=== PATIENT | male | born 1975 | race African-American/Black ===

== ENCOUNTER → 2016-07-30 | Day surgery (SDC) | payer MEDICAID ==
[2016-07-27 13:14] LABS: Basophils # (auto) 0.1 uL; Basophils % (auto) 1.6 % (0.0-2.0); Eosinophils # (auto) 0.3 uL; Eosinophils % (auto) 3.6 % (0.0-7.0); Hematocrit 39.2 % (41.0-53.0); Hemoglobin 12.8 g/dL (13.5-17.5); Lymphocytes # (auto) 2.3 uL; Lymphocytes % (auto) 29.4 % (10.0-50.0); Mean Corpuscular Hemoglobin 29.3 pg (28.0-32.0); Mean Corpuscular Hgb Conc. 32.6 g/dL (32.0-36.0); Mean Corpuscular Volume 90.1 fL (80.0-100.0); Monocytes # (auto) 0.9 uL; Monocytes % (auto) 10.9 % (0.0-12.0); Neutrophils # (auto) 4.3 uL; Neutrophils % (auto) 54.5 % (37.0-80.0); Platelet Count (auto) 497 10^3/uL (140-450); Red Cell Distribution Width 13.9 % (11.6-16.0); White Blood Cell 7.9 10^3/uL (4.4-10.8)
[2016-07-27 13:26] LABS: Urine Bilirubin Negative (Negative); Urine Blood Negative /uL (Negative); Urine Color Yellow (Yellow); Urine Glucose Normal (Normal); Urine Ketone Negative (Negative); Urine Mucus FEW (None Seen); Urine Nitrite Negative (Negative); Urine RBC 6 /hpf (0 - 3); Urine Urobilinogen Normal (Negative); Urine pH 6.5 (5.0-8.0)
[2016-07-27 13:31] LABS: Partial Thromboplastin Time 27.1 sec (22.64-33.71); Prothrombin Time 10.3 sec (9.37-12.3)
[2016-07-27 13:33] LABS: BUN/Creatinine Ratio 10.6; Calcium 8.8 mg/dL (8.5-10.1); Potassium 3.8 mmol/L (3.5-5.1)
[~2016-07-30] VITALS: Ht 172.7 cm; Wt 129.3 kg
[~2016-07-30] MED LIST: ALPR2TAB2 PO; AMLO10TA2 PO; BEN10T PO; DEXAMETHASONE SOD PHOS 10MG/1ML VIAL INJ ONE; FURO40TA PO; HYDR25TA4 PO; IOHEXOL 300 MG/ML 100ML BOTTLE IJ ONE; KETOROLAC TROMETH 60MG/2ML VIAL IM ONE; ONDANSETRON HCL 4 MG/2 ML VIAL ONE; PANT40TA2 PO; ROCURONIUM 10MG/ML 10ML VIAL IV ONE; SIMV-8 PO; SUCR1TAB38 PO; ceFAZolin 1GM/50ML D5W 50 ML IV ONE; fentaNYL CITRATE 100 MCG/2 ML VL ONE
[2016-07-30 07:32] VITALS: BP 159/115
== END | disposition home or self-care (01) ==
LOC: SUR 07:10
PROVIDERS: ATTEND Urology
DX: N20.1 Calculus of ureter (principal); I50.9 Heart failure, unspecified; J44.9 Chronic obstructive pulmonary disease, unspecified; E66.9 Obesity, unspecified; F41.9 Anxiety disorder, unspecified; F17.200 Nicotine dependence, unspecified, uncomplicated
CPT/HCPCS: 36415; 80048; 81001; 85025; 85049; 85610; 85730; 87086; J0690; J1100; J1885; J2405

== ENCOUNTER 2017-04-04 13:24 | Inpatient (IN) | payer MEDICAID, OTHER ==
[~2017-04-04] VITALS: Ht 172.7 cm; Wt 137.9 kg
[~2017-04-04 13:24] MED LIST changes: -DEXAMETHASONE SOD PHOS 10MG/1ML VIAL INJ ONE; -IOHEXOL 300 MG/ML 100ML BOTTLE IJ ONE; -KETOROLAC TROMETH 60MG/2ML VIAL IM ONE; -ONDANSETRON HCL 4 MG/2 ML VIAL ONE; -ROCURONIUM 10MG/ML 10ML VIAL IV ONE; -ceFAZolin 1GM/50ML D5W 50 ML IV ONE; -fentaNYL CITRATE 100 MCG/2 ML VL ONE
[2017-04-04] MEDS ORDERED: ASPirin 81 mg TAB PO ONE (14:00)
[2017-04-04] MEDS ORDERED: HYDROmorphone HCL 2 MG/ML VL IV ONE (14:15)
[2017-04-04] MEDS ORDERED: ONDANSETRON HCL 4 MG/2 ML VIAL IV ONE (14:15)
[2017-04-04 14:39] LABS: Basophils # (auto) 0.1 uL; Basophils % (auto) 0.8 % (0.0-2.0); Eosinophils # (auto) 0.2 uL; Eosinophils % (auto) 2.2 % (0.0-7.0); Hematocrit 43.2 % (41.0-53.0); Hemoglobin 14.3 g/dL (13.5-17.5); Lymphocytes # (auto) 3.1 uL; Lymphocytes % (auto) 40.3 % (10.0-50.0); Mean Corpuscular Hemoglobin 29.6 pg (28.0-32.0); Mean Corpuscular Hgb Conc. 33.1 g/dL (32.0-36.0); Mean Corpuscular Volume 89.5 fL (80.0-100.0); Mean Platelet Volume 8.1 fL (6.9-10.8); Monocytes # (auto) 0.9 uL; Monocytes % (auto) 11.6 % (0.0-12.0); Neutrophils # (auto) 3.5 uL; Neutrophils % (auto) 45.1 % (37.0-80.0); Nucleated Red Blood Cells % 0.2 %; Platelet Count (auto) 394 10^3/uL (140-450); Red Cell Distribution Width 14.5 % (11.8-14.3); White Blood Cell 7.8 10^3/uL (4.4-10.8)
[2017-04-04 14:48] LABS: Urine Bilirubin Negative (Negative); Urine Blood Negative /uL (Negative); Urine Color Yellow (Yellow); Urine Glucose Normal (Normal); Urine Ketone Negative (Negative); Urine Nitrite Negative (Negative); Urine RBC <1 /hpf (0 - 3); Urine Squamous Epithelial Cell FEW /hpf (<5); Urine Urobilinogen Normal (Negative)
[2017-04-04 14:52] LABS: INR 0.92 (0.9-1.15)
[2017-04-04 15:05] LABS: Albumin 3.1 g/dL (3.4-5.0); Anion Gap 7 (5-15); Aspartate Aminotransferase 23 U/L (15-37); Blood Urea Nitrogen 14 mg/dL (7-18); Calcium 8.6 mg/dL (8.5-10.1); Carbon Dioxide 27 mmol/L (21-32); Chloride 111 mmol/L (98-107); GFR African American 106 mL/min; GFR Non-African American 88 mL/min; Glucose 103 mg/dL (74-106); Magnesium 2.4 mg/dL (1.6-2.6); Potassium 4.2 mmol/L (3.5-5.1); Sodium 145 mmol/L (136-145)
[2017-04-04 15:09] LABS: Alkaline Phosphatase 70 U/L (45-117); Bilirubin, Total 0.3 mg/dL (0.2-1.0); Total Protein 7.1 g/dL (6.4-8.2)
[2017-04-04 15:15] LABS: B-Type Natriuretic Peptide 44.58 pg/mL (0-100)
[2017-04-04 15:28] LABS: Temperature: 22.4 C (20.0-25.0)
[2017-04-04] MEDS ORDERED: ONDANSETRON HCL 4 MG/2 ML VIAL IV PRN (18:15)
[2017-04-04] MEDS ORDERED: FUROSEMIDE 40 MG/4 ML VIAL IV ONE (18:15)
[2017-04-04] MEDS ORDERED: cefTRIAXone 1GM/50ML D5W 50 ML IV ONE (18:15)
[2017-04-04] MEDS ORDERED: ZOLPIDEM TARTRATE 5 MG TAB PO PRN (18:15)
[2017-04-04] MEDS ORDERED: NITROGLYCERIN 0.4 MG SL TAB SL PRN ×2 (18:15)
[2017-04-04] MEDS ORDERED: LORazepam 0.5 MG TAB PO PRN (18:15)
[2017-04-04] MEDS ORDERED: ALUM & MAG HYDROX-SIMETH LIQ(MAALOX) 30 ML PO ONE (18:15)
[2017-04-04] MEDS ORDERED: cloNIDine HCL 0.1 MG TAB PO PRN (18:15)
[2017-04-04] MEDS ORDERED: ACETAMINOPHEN 325 MG TAB PO PRN (18:15)
[2017-04-04] MEDS: HYDROmorphone HCL 2 MG/ML VL IV PRN ×2 (18:20→23:18)
[2017-04-04] MEDS ORDERED: AZITHROMYCIN 500MG/D5W 250ML 250 ML IV ONE (19:00)
[2017-04-04 19:58] VITALS: BP_SYST 138; BP_SYST 159; BP_DIAS 88; BP_DIAS 90
[2017-04-04] MEDS: oxyCODONE ER 10 MG TAB PO SCH (22:13)
[2017-04-04] MEDS: SUCRALFATE 1 GM TAB PO SCH (22:14)
[2017-04-04] MEDS: ATORVASTATIN 20 MG TAB PO SCH (22:14)
[2017-04-04] MEDS: BENAZEPRIL HCL 10 MG TAB PO SCH (22:15)
[2017-04-04] MEDS: CARVEDILOL 3.125 MG TAB PO SCH (22:15)
[2017-04-04] MEDS: POTASSIUM CHL 10 Meq TABLET PO SCH (22:16)
[2017-04-04] MEDS: SODIUM CHLOR 0.9% PF (SALINE LOCK) 10ML VIAL IV SCH (22:16)
[2017-04-05] MEDS: ALBUTEROL SULF 2.5 MG/0.5ML(0.5%) NEB SOLN NEB SCH ×5 (02:20→23:49)
[2017-04-05 05:00] VITALS: BP 132/66
[2017-04-05] MEDS: FUROSEMIDE 40 MG/4 ML VIAL IV SCH ×2 (05:40→18:42)
[2017-04-05] MEDS: oxyCODONE ER 10 MG TAB PO SCH ×3 (05:40→21:15)
[2017-04-05] MEDS: SODIUM CHLOR 0.9% PF (SALINE LOCK) 10ML VIAL IV SCH ×3 (05:42→21:14)
[2017-04-05 06:39] LABS: Basophils # (auto) 0.1 uL; Basophils % (auto) 0.7 % (0.0-2.0); Eosinophils # (auto) 0.3 uL; Eosinophils % (auto) 3.8 % (0.0-7.0); Hematocrit 43.1 % (41.0-53.0); Hemoglobin 14.2 g/dL (13.5-17.5); Lymphocytes % (auto) 35.4 % (10.0-50.0); Mean Corpuscular Hemoglobin 29.7 pg (28.0-32.0); Mean Corpuscular Volume 89.9 fL (80.0-100.0); Mean Platelet Volume 8.6 fL (6.9-10.8); Monocytes # (auto) 0.8 uL; Neutrophils # (auto) 4.2 uL; Neutrophils % (auto) 50.1 % (37.0-80.0); Platelet Count (auto) 360 10^3/uL (140-450); Red Cell Distribution Width 14.6 % (11.8-14.3); White Blood Cell 8.4 10^3/uL (4.4-10.8)
[2017-04-05 07:04] LABS: BUN/Creatinine Ratio 14.9; Bilirubin, Total 0.4 mg/dL (0.2-1.0); Calcium 8.3 mg/dL (8.5-10.1); Magnesium 2.4 mg/dL (1.6-2.6); Potassium 3.9 mmol/L (3.5-5.1); Total Protein 7.3 g/dL (6.4-8.2)
[2017-04-05 08:37] VITALS: BP 138/90
[2017-04-05 08:46] VITALS: BP 132/82
[2017-04-05] MEDS: cefTRIAXone 1GM/50ML D5W 50 ML IV SCH (09:03)
[2017-04-05] MEDS: HYDROmorphone HCL 2 MG/ML VL IV PRN ×4 (09:03→23:30)
[2017-04-05] MEDS: SUCRALFATE 1 GM TAB PO SCH ×4 (09:03→21:14)
[2017-04-05] MEDS: BOOST PLUS 8 ounce PO SCH ×3 (09:04→18:10)
[2017-04-05] MEDS: AZITHROMYCIN 500MG/D5W 250ML 250 ML IV SCH (09:23)
[2017-04-05] MEDS: POTASSIUM CHL 10 Meq TABLET PO SCH ×2 (09:23→21:14)
[2017-04-05] MEDS: PANTOPRAZOLE 40 MG TAB PO SCH (09:24)
[2017-04-05] MEDS: CLOPIDOGREL BISULFATE 75 MG TAB PO SCH (09:24)
[2017-04-05] MEDS: HCTZ 25 MG TAB PO SCH (09:24)
[2017-04-05] MEDS: amLODIPine BESYLATE 5 MG TAB PO SCH (09:25)
[2017-04-05] MEDS: CARVEDILOL 3.125 MG TAB PO SCH ×2 (09:26→21:55)
[2017-04-05] MEDS: BENAZEPRIL HCL 10 MG TAB PO SCH ×2 (09:26→21:56)
[2017-04-05] MEDS: DOCUSATE SOD 100 MG CAP PO SCH (09:29)
[2017-04-05] MEDS: ASPirin 81 mg TAB PO SCH (09:29)
[2017-04-05 13:25] VITALS: BP 128/82
[2017-04-05 17:00] VITALS: BP 144/84
[2017-04-05] MEDS: ATORVASTATIN 20 MG TAB PO SCH (21:14)
[2017-04-06] MEDS: HYDROmorphone HCL 2 MG/ML VL IV PRN ×2 (03:30→09:25)
[2017-04-06 05:00] VITALS: BP 131/93
[2017-04-06] MEDS: FUROSEMIDE 40 MG/4 ML VIAL IV SCH (05:35)
[2017-04-06] MEDS: oxyCODONE ER 10 MG TAB PO SCH ×2 (05:36→14:00)
[2017-04-06] MEDS: SODIUM CHLOR 0.9% PF (SALINE LOCK) 10ML VIAL IV SCH (05:37)
[2017-04-06] MEDS: ALBUTEROL SULF 2.5 MG/0.5ML(0.5%) NEB SOLN NEB SCH ×2 (06:17→11:32)
[2017-04-06] MEDS: SUCRALFATE 1 GM TAB PO SCH ×2 (06:27→12:25)
[2017-04-06 09:00] VITALS: BP 138/71
[2017-04-06] MEDS: cefTRIAXone 1GM/50ML D5W 50 ML IV SCH (09:45)
[2017-04-06] MEDS: DOCUSATE SOD 100 MG CAP PO SCH (09:45)
[2017-04-06] MEDS: ASPirin 81 mg TAB PO SCH (09:45)
[2017-04-06] MEDS: CARVEDILOL 3.125 MG TAB PO SCH (09:46)
[2017-04-06] MEDS: HCTZ 25 MG TAB PO SCH (09:46)
[2017-04-06] MEDS: BENAZEPRIL HCL 10 MG TAB PO SCH (09:47)
[2017-04-06] MEDS: POTASSIUM CHL 10 Meq TABLET PO SCH (09:47)
[2017-04-06] MEDS: CLOPIDOGREL BISULFATE 75 MG TAB PO SCH (09:47)
[2017-04-06] MEDS: PANTOPRAZOLE 40 MG TAB PO SCH (09:47)
[2017-04-06] MEDS: amLODIPine BESYLATE 5 MG TAB PO SCH (09:47)
[2017-04-06] MEDS ORDERED: GEMFIBROZIL 600 MG TAB PO SCH (10:15)
[2017-04-06 11:40] LABS: Allen Test Yes; Base Excess 3.6 mmol/L (-2.0-2.0); Blood 02Sat 95.1 % (96-100); Blood COHb 0.6 % (0.5-1.5); Blood MetHb 0.3 % (0.0-1.5); HCO3 28.7 mmol/L (22-26.0); HHb 4.9 % (0.0-5.0); MODE ROOM AIR; O2Hb 94.2 % (94.0-97.0); PCO2 44.9 mmHg (35.0-45.0); PCO2(T) 44.9 mmHg (35.0-45.0); PO2 77.9 mmHg (80.0-100.0); PO2(T) 77.9 mmHg (80.0-100.0); Room 0238T; Sample Type Arterial; pH 7.424 (7.350-7.450)
[2017-04-06] MEDS: AZITHROMYCIN 500MG/D5W 250ML 250 ML IV SCH (12:25)
[2017-04-06 13:00] VITALS: BP 97/69
[2017-04-06 13:56] VITALS: BP 138/71
== END 2017-04-06 14:35 | disposition home or self-care (01) | DRG 194 ==
LOC: ER 13:25 → TELE 13:26 → TELE-EAST 19:56 → TELE 19:56 → TELE-EAST 19:58
PROVIDERS: ADMIT Internal Medicine; ATTEND Internal Medicine
DX: I11.0 Hypertensive heart disease with heart failure (principal); E44.0 Moderate protein-calorie malnutrition; E66.2 Morbid (severe) obesity with alveolar hypoventilation; Z68.42 Body mass index [BMI] 45.0-49.9, adult; F41.9 Anxiety disorder, unspecified; E78.1 Pure hyperglyceridemia; F17.210 Nicotine dependence, cigarettes, uncomplicated; I50.43 Acute on chronic combined systolic (congestive) and diastolic (congestive) heart failure; J20.9 Acute bronchitis, unspecified; J45.909 Unspecified asthma, uncomplicated; K21.9 Gastro-esophageal reflux disease without esophagitis; Z87.442 Personal history of urinary calculi; Z90.49 Acquired absence of other specified parts of digestive tract; Z82.3 Family history of stroke; Z82.49 Family history of ischemic heart disease and other diseases of the circulatory system; Z90.5 Acquired absence of kidney; Z88.1 Allergy status to other antibiotic agents; Z88.5 Allergy status to narcotic agent; Z88.8 Allergy status to other drugs, medicaments and biological substances
CPT/HCPCS: 36415; 36600; 71010; 80053; 80061; 81001; 82805; 83735; 83880; 84443; 84484; 85025; 85610; 85730; 87040; 87070; 87081; 87205; 93005; 93306; 94640; 96365; 96375; J0696; J2405

== ENCOUNTER 2017-06-25 05:18 | Emergency (ER) | payer MEDICAID ==
[~2017-06-25] VITALS: Ht 172.7 cm; Wt 113.4 kg
[~2017-06-25 05:18] MED LIST changes: -HYDR25TA4 PO
[2017-06-25 07:01] LABS: Basophils # (auto) 0.1 uL; Basophils % (auto) 1.3 % (0.0-2.0); Eosinophils # (auto) 0.3 uL; Eosinophils % (auto) 4.2 % (0.0-7.0); Hemoglobin 15.1 g/dL (13.5-17.5); Lymphocytes # (auto) 2.6 uL; Lymphocytes % (auto) 32.8 % (10.0-50.0); Mean Corpuscular Hemoglobin 28.4 pg (28.0-32.0); Mean Corpuscular Hgb Conc. 32.9 g/dL (32.0-36.0); Mean Corpuscular Volume 86.5 fL (80.0-100.0); Mean Platelet Volume 7.6 fL (6.9-10.8); Monocytes # (auto) 0.6 uL; Monocytes % (auto) 8.2 % (0.0-12.0); Neutrophils # (auto) 4.2 uL; Neutrophils % (auto) 53.5 % (37.0-80.0); Nucleated Red Blood Cells % 0.1 %; Platelet Count (auto) 375 10^3/uL (140-450); Red Cell Distribution Width 15.7 % (11.8-14.3); White Blood Cell 7.8 10^3/uL (4.4-10.8)
[2017-06-25] MEDS ORDERED: methylPREDNISolone SOD SUCC 125 MG/2 ML VL IV ONE (07:15)
[2017-06-25 07:19] LABS: INR 0.94 (0.9-1.15); Partial Thromboplastin Time 26.1 sec (22.64-33.71); Prothrombin Time 10.2 sec (9.37-12.3)
[2017-06-25 07:26] VITALS: BP 143/82
[2017-06-25 07:29] LABS: BUN/Creatinine Ratio 11.2; Bilirubin, Total 0.4 mg/dL (0.2-1.0); Calcium 8.3 mg/dL (8.5-10.1); Total Protein 7.5 g/dL (6.4-8.2)
[2017-06-25] MEDS ORDERED: HYDROmorphone HCL 2 MG/ML VL IV ONE (07:30)
[2017-06-25] MEDS ORDERED: ONDANSETRON HCL 4 MG/2 ML VIAL IV ONE (07:30)
[2017-06-25 07:32] LABS: Temperature: 21.5 C (20.0-25.0)
== END 2017-06-25 08:26 | disposition left against medical advice (07) ==
LOC: ER 05:18 → EDBD 05:18 → ER 08:21
DX: R06.03 Acute respiratory distress (principal); J44.1 Chronic obstructive pulmonary disease with (acute) exacerbation; R00.0 Tachycardia, unspecified; F17.210 Nicotine dependence, cigarettes, uncomplicated; I11.0 Hypertensive heart disease with heart failure; I50.9 Heart failure, unspecified; K21.9 Gastro-esophageal reflux disease without esophagitis; E78.5 Hyperlipidemia, unspecified; Z87.442 Personal history of urinary calculi; I25.2 Old myocardial infarction; Z90.49 Acquired absence of other specified parts of digestive tract
CPT/HCPCS: 36415; 71010; 80053; 83735; 83880; 84484; 85025; 85610; 85730; 93005; 94761; 96374; 96375; 99285; J1170; J2405; J2930

== ENCOUNTER 2017-06-26 22:43 | Emergency (ER) | payer MEDICAID ==
[~2017-06-26] VITALS: Ht 180.3 cm; Wt 117.9 kg
[2017-06-27 01:27] LABS: Basophils # (auto) 0.2 uL; Basophils % (auto) 1.5 % (0.0-2.0); Eosinophils # (auto) 0.2 uL; Eosinophils % (auto) 1.2 % (0.0-7.0); Hematocrit 42.7 % (41.0-53.0); Hemoglobin 13.8 g/dL (13.5-17.5); Lymphocytes % (auto) 22.9 % (10.0-50.0); Mean Corpuscular Hemoglobin 28.3 pg (28.0-32.0); Mean Corpuscular Hgb Conc. 32.3 g/dL (32.0-36.0); Mean Corpuscular Volume 87.6 fL (80.0-100.0); Mean Platelet Volume 7.8 fL (6.9-10.8); Monocytes # (auto) 1.1 uL; Monocytes % (auto) 8.3 % (0.0-12.0); Neutrophils # (auto) 8.8 uL; Neutrophils % (auto) 66.1 % (37.0-80.0); Nucleated Red Blood Cells % 0.1 %; Platelet Count (auto) 377 10^3/uL (140-450); Red Cell Distribution Width 15.7 % (11.8-14.3); White Blood Cell 13.2 10^3/uL (4.4-10.8)
[2017-06-27 01:54] LABS: Albumin 2.7 g/dL (3.4-5.0); Calcium 8.3 mg/dL (8.5-10.1); Magnesium 2.1 mg/dL (1.6-2.6); Potassium 3.6 mmol/L (3.5-5.1)
[2017-06-27 01:59] LABS: Bilirubin, Total 0.3 mg/dL (0.2-1.0); Total Protein 7.1 g/dL (6.4-8.2)
[2017-06-27 02:12] LABS: B-Type Natriuretic Peptide 224.28 pg/mL (0-100)
[2017-06-27 02:44] LABS: Temperature: 21.9 C (20.0-25.0)
[2017-06-27] MEDS: HYDROcodone-ACET 10/325MG TAB PO ONE (03:46)
[2017-06-27 03:56] VITALS: BP 132/78
== END 2017-06-27 04:01 | disposition home or self-care (01) ==
LOC: EDBD 22:43 → ER 22:45
DX: R06.02 Shortness of breath (principal); I50.9 Heart failure, unspecified; K21.9 Gastro-esophageal reflux disease without esophagitis; E78.5 Hyperlipidemia, unspecified; J44.9 Chronic obstructive pulmonary disease, unspecified; I25.2 Old myocardial infarction; Z90.49 Acquired absence of other specified parts of digestive tract; Z87.891 Personal history of nicotine dependence; Z87.442 Personal history of urinary calculi
CPT/HCPCS: 36415; 71010; 80053; 83735; 83880; 84484; 85025

== ENCOUNTER 2017-11-11 15:45 | Inpatient (IN) | payer MEDICAID ==
[~2017-11-11] VITALS: Ht 172.7 cm; Wt 115.9 kg
[2017-11-11] MEDS ORDERED: METOCLOPRAMIDE HCL 5MG/ml INJ 2ml VIAL IV ONE (16:30)
[2017-11-11] MEDS ORDERED: HYDROmorphone HCL 2 MG/ML VL IV ONE (16:30)
[2017-11-11 16:48] LABS: Basophils # (auto) 0.1 uL; Eosinophils # (auto) 0 uL; Hematocrit 46.8 % (41.0-53.0); Monocytes % (auto) 10.5 % (0.0-12.0); White Blood Cell 9.5 10^3/uL (4.4-10.8)
[2017-11-11 16:50] LABS: Basophils % (auto) 0.7 % (0.0-2.0); Eosinophils % (auto) 0.3 % (0.0-7.0); Hemoglobin 15.3 g/dL (13.5-17.5); Lymphocytes # (auto) 0.9 uL; Lymphocytes % (auto) 9.3 % (10.0-50.0); Mean Corpuscular Hemoglobin 28.2 pg (28.0-32.0); Mean Corpuscular Hgb Conc. 32.7 g/dL (32.0-36.0); Mean Corpuscular Volume 86.1 fL (80.0-100.0); Neutrophils # (auto) 7.5 uL; Neutrophils % (auto) 79.2 % (37.0-80.0); Nucleated Red Blood Cells % 0.1 %; Platelet Count (auto) 484 10^3/uL (140-450); Red Blood Cells 5.44 10^6/uL (4.5-5.90); Red Cell Distribution Width 16.1 % (11.8-14.3)
[2017-11-11 17:30] LABS: Albumin 3.3 g/dL (3.4-5.0); BUN/Creatinine Ratio 11.4; Bilirubin, Total 0.5 mg/dL (0.2-1.0); Calcium 9.1 mg/dL (8.5-10.1); Potassium 3.8 mmol/L (3.5-5.1); Total Protein 8.5 g/dL (6.4-8.2)
[2017-11-11 18:14] LABS: Magnesium 2.1 mg/dL (1.6-2.6)
[2017-11-11] MEDS ORDERED: ACETAMINOPHEN 500 MG TAB PO PRN (18:45)
[2017-11-11] MEDS ORDERED: NITROGLYCERIN 0.4 MG SL TAB SL PRN (18:45)
[2017-11-11] MEDS ORDERED: HYDROcodone-ACET 5/325MG TAB PO PRN (18:45)
[2017-11-11] MEDS ORDERED: LACTULOSE 20Gm/30ML SOLN PO PRN (18:45)
[2017-11-11] MEDS ORDERED: TEMAZEPAM 15 MG CAP PO PRN (18:45)
[2017-11-11] MEDS: SODIUM CHLORIDE 0.9% 1,000 ML IV SCH (19:25)
[2017-11-11 20:09] LABS: CRP High Sensitivity 0.58 mg/dL (< 0.3)
[2017-11-11 20:46] LABS: Urine Bacteria NONE SEEN /hpf (None Seen); Urine Blood Negative /uL (Negative); Urine Hyaline Cast FEW /lpf (0 - 2); Urine Mucus FEW (None Seen); Urine Specific Gravity 1.012 (1.001-1.035); Urine WBC 1 /hpf (0 - 3)
[2017-11-11 20:52] LABS: Alcohol, Urine < 3.0 mg/dL (0-5); Amphetamine Screen, Urine NEGATIVE (NEGATIVE); Barbiturate Scree,Urine NEGATIVE (NEGATIVE); Benzodiazephine Screen, Urine NEGATIVE (NEGATIVE); Cannabinoid Screen, Urine POSITIVE (NEGATIVE); Cocaine Screen, Urine NEGATIVE (NEGATIVE); Opiate Scree,Urine NEGATIVE (NEGATIVE); Phencyclidine Screen, Urine NEGATIVE (NEGATIVE)
[2017-11-11] MEDS: SUCRALFATE 1 GM TAB PO SCH (20:58)
[2017-11-11 21:37] LABS: INR 1.03 (0.9-1.15); Prothrombin Time 11.2 sec (9.37-12.3)
[2017-11-11] MEDS: metroNIDAZOLE 500MG/100ML 100 ML IV SCH (21:52)
[2017-11-11] MEDS: ENOXAPARIN SOD 120 MG/0.8 ML SYRINGE SC SCH (21:57)
[2017-11-11] MEDS: ATORVASTATIN 20 MG TAB PO SCH (21:57)
[2017-11-11] MEDS: ALPRAZolam 0.5 MG TAB PO SCH (22:15)
[2017-11-11] MEDS: METOPROLOL TARTRATE 25 MG TAB PO SCH (22:30)
[2017-11-12 00:40] LABS: Hematocrit 45.2 % (41.0-53.0); Hemoglobin 14.8 g/dL (13.5-17.5)
[2017-11-12 04:55] LABS: Basophils # (auto) 0.1 uL; Basophils % (auto) 0.8 % (0.0-2.0); Eosinophils # (auto) 0.1 uL; Eosinophils % (auto) 1.4 % (0.0-7.0); Hematocrit 44.8 % (41.0-53.0); Hemoglobin 14.5 g/dL (13.5-17.5); Lymphocytes # (auto) 1.6 uL; Lymphocytes % (auto) 21.1 % (10.0-50.0); Mean Corpuscular Hemoglobin 28.1 pg (28.0-32.0); Mean Corpuscular Hgb Conc. 32.3 g/dL (32.0-36.0); Monocytes # (auto) 1.1 uL; Monocytes % (auto) 14.2 % (0.0-12.0); Neutrophils # (auto) 4.7 uL; Neutrophils % (auto) 62.5 % (37.0-80.0); Nucleated Red Blood Cells % 0.2 %; Platelet Count (auto) 438 10^3/uL (140-450); Red Blood Cells 5.15 10^6/uL (4.5-5.90); Red Cell Distribution Width 15.9 % (11.8-14.3); White Blood Cell 7.6 10^3/uL (4.4-10.8)
[2017-11-12 05:17] LABS: Calcium 8.7 mg/dL (8.5-10.1); Potassium 3.3 mmol/L (3.5-5.1)
[2017-11-12 05:51] LABS: BUN/Creatinine Ratio 15.9; Bilirubin, Total 0.5 mg/dL (0.2-1.0); Total Protein 7.7 g/dL (6.4-8.2)
[2017-11-12] MEDS: metroNIDAZOLE 500MG/100ML 100 ML IV SCH ×2 (06:12→14:55)
[2017-11-12] MEDS: SUCRALFATE 1 GM TAB PO SCH ×3 (07:00→17:17)
[2017-11-12] MEDS: SODIUM CHLORIDE 0.9% 1,000 ML IV SCH ×2 (08:19→22:00)
[2017-11-12] MEDS: METOPROLOL TARTRATE 25 MG TAB PO SCH ×2 (09:05→22:02)
[2017-11-12] MEDS: BENAZEPRIL HCL 10 MG TAB PO SCH (09:06)
[2017-11-12] MEDS: ASPirin 81 mg TAB PO SCH (09:19)
[2017-11-12] MEDS: FUROSEMIDE 40 MG TAB PO SCH (09:20)
[2017-11-12] MEDS: PANTOPRAZOLE 40 MG TAB PO SCH (09:20)
[2017-11-12] MEDS: ALPRAZolam 0.5 MG TAB PO SCH ×2 (09:21→22:03)
[2017-11-12] MEDS: ENOXAPARIN SOD 120 MG/0.8 ML SYRINGE SC SCH ×2 (09:23→22:04)
[2017-11-12] MEDS ORDERED: NITROGLYCERIN 0.2MG/HR TOPICAL PATCH TD SCH (10:00)
[2017-11-12] MEDS ORDERED: amLODIPine BESYLATE 5 MG TAB PO SCH (10:00)
[2017-11-12 12:00] LABS: Hematocrit 44.1 % (41.0-53.0); Hemoglobin 14.3 g/dL (13.5-17.5)
[2017-11-12] MEDS: HYDROmorphone HCL 2 MG/ML VL IV PRN ×2 (14:54→20:11)
[2017-11-12 17:00] LABS: INR 1.01 (0.9-1.15); Partial Thromboplastin Time 32.7 sec (22.64-33.71)
[2017-11-12] MEDS: metroNIDAZOLE 500 MG TAB PO SCH (17:17)
[2017-11-12] MEDS ORDERED: WARFARIN SODIUM 2.5 MG TAB PO ONE (18:30)
[2017-11-12] MEDS ORDERED: ENO100SY SC (19:10)
[2017-11-12] MEDS ORDERED: ASPI81TA27 PO (19:10)
[2017-11-12] MEDS ORDERED: FURO40TA4 PO (19:10)
[2017-11-12] MEDS ORDERED: PANT40TA2 PO (19:10)
[2017-11-12] MEDS ORDERED: OXY5T PO (19:10)
[2017-11-12] MEDS ORDERED: ALBU2TAB4 PO (19:10)
[2017-11-12] MEDS ORDERED: SPIR25TA89 PO (19:10)
[2017-11-12] MEDS ORDERED: CARV12.544 PO (19:10)
[2017-11-12] MEDS ORDERED: WARF5TAB PO (19:10)
[2017-11-12] MEDS ORDERED: LISI-646 PO (19:10)
[2017-11-12] MEDS: ATORVASTATIN 20 MG TAB PO SCH (22:00)
[2017-11-12 22:08] VITALS: BP 118/69
[2017-11-13] MEDS: metroNIDAZOLE 500 MG TAB PO SCH ×4 (00:30→18:00)
[2017-11-13] MEDS: HYDROmorphone HCL 2 MG/ML VL IV PRN ×4 (01:30→15:37)
[2017-11-13 05:00] VITALS: BP 111/60
[2017-11-13 06:22] LABS: Hematocrit 40.8 % (41.0-53.0); Hemoglobin 13.3 g/dL (13.5-17.5); Mean Corpuscular Hemoglobin 28.4 pg (28.0-32.0); Mean Corpuscular Hgb Conc. 32.6 g/dL (32.0-36.0); Platelet Count (auto) 382 10^3/uL (140-450); White Blood Cell 5.9 10^3/uL (4.4-10.8)
[2017-11-13 06:23] LABS: INR 1.01 (0.9-1.15); Partial Thromboplastin Time 30.3 sec (22.64-33.71)
[2017-11-13 06:26] LABS: Band Neutrophils % (manual) 0; Basophils % (manual) 0 (0.0-2.0); Blast Cells 0; Metamyelocytes % 0; Myelocytes % 0; Promyelocytes % 0; Reactive Lymphocytes 0
[2017-11-13 06:48] LABS: BUN/Creatinine Ratio 15.7; Calcium 8.8 mg/dL (8.5-10.1); Potassium 3.5 mmol/L (3.5-5.1)
[2017-11-13] MEDS: SUCRALFATE 1 GM TAB PO SCH ×3 (06:56→16:53)
[2017-11-13 09:00] VITALS: BP 106/68
[2017-11-13] MEDS: BENAZEPRIL HCL 10 MG TAB PO SCH (10:00)
[2017-11-13] MEDS: METOPROLOL TARTRATE 25 MG TAB PO SCH (10:00)
[2017-11-13] MEDS: FUROSEMIDE 40 MG TAB PO SCH (10:00)
[2017-11-13] MEDS: ALPRAZolam 0.5 MG TAB PO SCH (10:41)
[2017-11-13] MEDS: PANTOPRAZOLE 40 MG TAB PO SCH (10:41)
[2017-11-13] MEDS: ASPirin 81 mg TAB PO SCH (10:42)
[2017-11-13] MEDS: SODIUM CHLORIDE 0.9% 1,000 ML IV SCH (10:43)
[2017-11-13] MEDS: ENOXAPARIN SOD 120 MG/0.8 ML SYRINGE SC SCH (10:43)
[2017-11-13 11:30] LABS: Eosinophils % (manual) 7 (0-7); Lymphocytes % (manual) 38 (10.0-50.0); Monocytes % (manual) 14 (0-12)
[2017-11-13 12:27] VITALS: BP 118/72
[2017-11-13 16:47] VITALS: BP 118/71
[2017-11-13] MEDS ORDERED: WARFARIN SODIUM 2.5 MG TAB PO ONE (17:00)
[2017-11-14] MEDS ORDERED: BENAZEPRIL HCL 10 MG TAB PO SCH (10:00)
== END 2017-11-13 19:00 | disposition home health service (06) | DRG 190 ==
LOC: EDBD 15:45 → ER 15:45 → TELE 15:46 → TELE-WESTW 11-12 18:42
PROVIDERS: ADMIT Internal Medicine; ATTEND Hospitalist
DX: I21.4 Non-ST elevation (NSTEMI) myocardial infarction (principal); N17.0 Acute kidney failure with tubular necrosis; I13.0 Hypertensive heart and chronic kidney disease with heart failure and stage 1 through stage 4 chronic kidney disease, or unspecified chronic kidney disease; I50.9 Heart failure, unspecified; I42.9 Cardiomyopathy, unspecified; E11.22 Type 2 diabetes mellitus with diabetic chronic kidney disease; A08.4 Viral intestinal infection, unspecified; F41.9 Anxiety disorder, unspecified; E78.5 Hyperlipidemia, unspecified; J44.9 Chronic obstructive pulmonary disease, unspecified; K40.90 Unilateral inguinal hernia, without obstruction or gangrene, not specified as recurrent; H54.62 Unqualified visual loss, left eye, normal vision right eye; F12.90 Cannabis use, unspecified, uncomplicated; K21.9 Gastro-esophageal reflux disease without esophagitis; N18.9 Chronic kidney disease, unspecified; Z80.9 Family history of malignant neoplasm, unspecified; Z82.3 Family history of stroke; Z82.49 Family history of ischemic heart disease and other diseases of the circulatory system; Z83.3 Family history of diabetes mellitus; Z86.718 Personal history of other venous thrombosis and embolism; Z87.442 Personal history of urinary calculi; I69.351 Hemiplegia and hemiparesis following cerebral infarction affecting right dominant side; Z90.49 Acquired absence of other specified parts of digestive tract; Z88.8 Allergy status to other drugs, medicaments and biological substances; Z88.5 Allergy status to narcotic agent; Z79.899 Other long term (current) drug therapy; Z79.82 Long term (current) use of aspirin
CPT/HCPCS: 36415; 70450; 74176; 76705; 80048; 80053; 80061; 80307; 81001; 82150; 82378; 82550; 83690; 83735; 83880; 84484; 85007; 85014; 85018; 85025; 85027; 85045; 85610; 85652; 85730; 86141; 93005; 93306; 96374; 96375; 99291; J3490

== ENCOUNTER 2017-11-24 04:03 | Inpatient (IN) | payer MEDICAID ==
[~2017-11-24] VITALS: Ht 180.3 cm; Wt 107.0 kg
[~2017-11-24 04:03] MED LIST changes: +ALBU2TAB4 PO; -AMLO10TA2 PO; +ASPI81TA27 PO; -BEN10T PO; +CARV12.544 PO; +ENO100SY SC; -FURO40TA PO; +FURO40TA4 PO; +LISI-646 PO; +OXY5T PO; -SIMV-8 PO; +SPIR25TA89 PO; +WARF5TAB PO
[2017-11-24 04:52] LABS: Basophils # (auto) 0.1 uL; Basophils % (auto) 1.1 % (0.0-2.0); Eosinophils # (auto) 0.3 uL; Eosinophils % (auto) 3.7 % (0.0-7.0); Hematocrit 39.3 % (41.0-53.0); Hemoglobin 12.6 g/dL (13.5-17.5); Lymphocytes % (auto) 23.3 % (10.0-50.0); Mean Corpuscular Hemoglobin 28.2 pg (28.0-32.0); Mean Corpuscular Volume 88.1 fL (80.0-100.0); Monocytes # (auto) 0.7 uL; Neutrophils # (auto) 5.5 uL; Neutrophils % (auto) 63.9 % (37.0-80.0); Platelet Count (auto) 394 10^3/uL (140-450); Red Blood Cells 4.46 10^6/uL (4.5-5.90); Red Cell Distribution Width 15.9 % (11.8-14.3); White Blood Cell 8.6 10^3/uL (4.4-10.8)
[2017-11-24 05:05] LABS: Alanine Aminotransferase 34 U/L (16-61); Albumin 2.7 g/dL (3.4-5.0); Anion Gap 8 (5-15); Aspartate Aminotransferase 18 U/L (15-37); BUN/Creatinine Ratio 14.9; Blood Urea Nitrogen 17 mg/dL (7-18); Calcium 8.6 mg/dL (8.5-10.1); Carbon Dioxide 25 mmol/L (21-32); Chloride 109 mmol/L (98-107); GFR African American 91 mL/min; GFR Non-African American 75 mL/min; Glucose 96 mg/dL (74-106); Potassium 3.9 mmol/L (3.5-5.1); Sodium 142 mmol/L (136-145)
[2017-11-24 05:10] LABS: Alkaline Phosphatase 63 U/L (45-117); Bilirubin, Total 0.2 mg/dL (0.2-1.0); INR 0.98 (0.9-1.15); Partial Thromboplastin Time 25.1 sec (23.78-33.04); Prothrombin Time 10.5 sec (9.27-12.13); Total Protein 7.1 g/dL (6.4-8.2)
[2017-11-24] MEDS ORDERED: NITROGLYCERIN 50MG/250ML 250 ML IV SCH (05:11)
[2017-11-24] MEDS ORDERED: ASPirin 81 mg TAB PO ONE (05:15)
[2017-11-24] MEDS ORDERED: ONDANSETRON HCL 4 MG/2 ML VIAL IV ONE (05:15)
[2017-11-24] MEDS ORDERED: MORPHINE SULFATE 4 MG/ML SYR/VIAL IV ONE (05:15)
[2017-11-24] MEDS ORDERED: ENALAPRILAT 1.25 MG/ML-1ML VIAL IV ONE (05:15)
[2017-11-24] MEDS ORDERED: MORPHINE SULFATE INJECTION 1 ML ONE (05:31)
[2017-11-24] MEDS ORDERED: ACETAMINOPHEN 500 MG TAB PO PRN (08:15)
[2017-11-24] MEDS ORDERED: TEMAZEPAM 15 MG CAP PO PRN (08:15)
[2017-11-24] MEDS ORDERED: ALBUTEROL SULF 2.5 MG/0.5ML(0.5%) NEB SOLN NEB PRN (08:15)
[2017-11-24] MEDS ORDERED: HYDROcodone-ACET 5/325MG TAB PO PRN (08:15)
[2017-11-24] MEDS ORDERED: NITROGLYCERIN 0.4 MG SL TAB SL PRN (08:15)
[2017-11-24] MEDS ORDERED: LORazepam 0.5 MG TAB PO PRN (08:15)
[2017-11-24] MEDS ORDERED: LACTULOSE 20Gm/30ML SOLN PO PRN (08:15)
[2017-11-24] MEDS ORDERED: PROMETHAZINE HCL 25 MG/ML 1ML IV PRN (08:15)
[2017-11-24 09:09] VITALS: BP 128/64
[2017-11-24] MEDS ORDERED: ASPirin 81 mg TAB PO SCH (10:00)
[2017-11-24] MEDS ORDERED: PANTOPRAZOLE 40 MG TAB PO SCH (10:00)
[2017-11-24] MEDS ORDERED: ENOXAPARIN SOD 40 MG/0.4 ML SYRINGE SC SCH (10:00)
[2017-11-24] MEDS ORDERED: NITROGLYCERIN 0.2MG/HR TOPICAL PATCH TD SCH (10:00)
[2017-11-24] MEDS ORDERED: POTASSIUM CHL 20 Meq TABLET PO SCH (10:00)
[2017-11-24] MEDS ORDERED: CARVEDILOL 3.125 MG TAB PO SCH (10:00)
[2017-11-24] MEDS ORDERED: ENALAPRIL MALEATE 2.5 MG TAB PO SCH (10:00)
[2017-11-24] MEDS ORDERED: FUROSEMIDE 40 MG/4 ML VIAL IV SCH (10:00)
[2017-11-24 10:45] VITALS: BP 122/77
[2017-11-24] MEDS ORDERED: oxyCODONE ER 10 MG TAB PO ONE (11:00)
[2017-11-24] MEDS ORDERED: HYDROmorphone HCL 2 MG/ML VL IV PRN (11:00)
[2017-11-24 12:13] LABS: Urine Bacteria NONE SEEN /hpf (None Seen); Urine Blood Negative /uL (Negative); Urine Specific Gravity 1.005 (1.001-1.035); Urine WBC None Seen /hpf (0 - 3)
[2017-11-24] MEDS ORDERED: SODIUM CHLOR 0.9% PF (SALINE LOCK) 10ML VIAL/SYR IV SCH (14:00)
[2017-11-24] MEDS ORDERED: oxyCODONE ER 10 MG TAB PO SCH (22:00)
== END 2017-11-24 11:38 | disposition left against medical advice (07) | DRG 133 ==
LOC: EDBD 04:03 → ER 04:10 → TELE 04:11
PROVIDERS: ADMIT Internal Medicine; ATTEND Internal Medicine
DX: J96.00 Acute respiratory failure, unspecified whether with hypoxia or hypercapnia (principal); I50.23 Acute on chronic systolic (congestive) heart failure; I42.9 Cardiomyopathy, unspecified; I69.951 Hemiplegia and hemiparesis following unspecified cerebrovascular disease affecting right dominant side; J44.9 Chronic obstructive pulmonary disease, unspecified; I11.0 Hypertensive heart disease with heart failure; E78.5 Hyperlipidemia, unspecified; I25.2 Old myocardial infarction; F12.90 Cannabis use, unspecified, uncomplicated; G89.29 Other chronic pain; H54.62 Unqualified visual loss, left eye, normal vision right eye; K21.9 Gastro-esophageal reflux disease without esophagitis; Z82.3 Family history of stroke; Z82.49 Family history of ischemic heart disease and other diseases of the circulatory system; Z83.3 Family history of diabetes mellitus; Z86.718 Personal history of other venous thrombosis and embolism; Z87.442 Personal history of urinary calculi; Z53.21 Procedure and treatment not carried out due to patient leaving prior to being seen by health care provider
CPT/HCPCS: 36415; 36600; 71045; 80053; 81001; 82550; 82805; 83735; 83880; 84443; 84484; 85025; 85610; 85730; 93005; 94640; 96372; 96374; 96375; 99291; J2405

== ENCOUNTER 2017-12-25 10:15 | Observation (INO) | payer MEDICAID ==
[~2017-12-25] VITALS: Ht 172.7 cm; Wt 120.7 kg
[2017-12-25] MEDS ORDERED: SODIUM CHLORIDE 0.9% 1,000 ML IVB ONE (11:06)
[2017-12-25 11:14] LABS: Basophils # (auto) 0.1 uL; Basophils % (auto) 0.8 % (0.0-2.0); Eosinophils # (auto) 0.1 uL; Eosinophils % (auto) 1.9 % (0.0-7.0); Hematocrit 44.1 % (41.0-53.0); Hemoglobin 14.2 g/dL (13.5-17.5); Lymphocytes # (auto) 2.2 uL; Lymphocytes % (auto) 30.2 % (10.0-50.0); Mean Corpuscular Hemoglobin 27.9 pg (28.0-32.0); Mean Corpuscular Hgb Conc. 32.3 g/dL (32.0-36.0); Mean Corpuscular Volume 86.2 fL (80.0-100.0); Monocytes # (auto) 0.4 uL; Monocytes % (auto) 5.8 % (0.0-12.0); Neutrophils # (auto) 4.4 uL; Neutrophils % (auto) 61.3 % (37.0-80.0); Nucleated Red Blood Cells % 0.3 %; Platelet Count (auto) 356 10^3/uL (140-450); Red Blood Cells 5.11 10^6/uL (4.5-5.90); Red Cell Distribution Width 16.4 % (11.8-14.3); White Blood Cell 7.2 10^3/uL (4.4-10.8)
[2017-12-25] MEDS ORDERED: ONDANSETRON HCL 4 MG/2 ML VIAL IV ONE (11:15)
[2017-12-25 11:26] LABS: Albumin 3.5 g/dL (3.4-5.0); BUN/Creatinine Ratio 11.2; Bilirubin, Total 0.5 mg/dL (0.2-1.0); Calcium 8.6 mg/dL (8.5-10.1); Potassium 4.1 mmol/L (3.5-5.1); Total Protein 7.9 g/dL (6.4-8.2)
[2017-12-25 11:42] LABS: Amylase 100 U/L (25-115); Magnesium 2.1 mg/dL (1.6-2.6)
[2017-12-25 11:46] LABS: INR 1.75 (0.9-1.15); Partial Thromboplastin Time 34.2 sec (23.78-33.04); Prothrombin Time 18.1 sec (9.27-12.13)
[2017-12-25] MEDS ORDERED: MEPERIDINE HCL (25 MG/ML) 1ML VIAL IV ONE (12:00)
[2017-12-25] MEDS ORDERED: PROMETHAZINE HCL 25 MG/ML 1ML ONE (12:22)
[2017-12-25] MEDS ORDERED: PROMETHAZINE HCL 25 MG/ML 1ML IV ONE (12:30)
[2017-12-25 14:58] VITALS: BP 161/112
== END 2017-12-25 17:33 | disposition home or self-care (01) | DRG 251 ==
LOC: ER 10:15 → EDBD 10:15 → OVERFLOW 10:16 → ER 17:33
PROVIDERS: ADMIT Family Medicine; ATTEND Family Medicine
DX: R10.9 Unspecified abdominal pain (principal); I11.0 Hypertensive heart disease with heart failure; I50.9 Heart failure, unspecified; E78.5 Hyperlipidemia, unspecified; R11.2 Nausea with vomiting, unspecified; H54.62 Unqualified visual loss, left eye, normal vision right eye; J44.9 Chronic obstructive pulmonary disease, unspecified; K21.9 Gastro-esophageal reflux disease without esophagitis; Z82.3 Family history of stroke; Z82.49 Family history of ischemic heart disease and other diseases of the circulatory system; Z86.73 Personal history of transient ischemic attack (TIA), and cerebral infarction without residual deficits
CPT/HCPCS: 36415; 71045; 74176; 80053; 82150; 83690; 83735; 84484; 85025; 85610; 85730; 96361; 96374; 96375; 99285; G0378; J2175; J2405; J2550; J7030; 93005

== ENCOUNTER 2017-12-27 13:13 | Emergency (ER) | payer MEDICAID ==
[2017-12-27 13:24] VITALS: BP 177/103
[2017-12-27] MEDS ORDERED: SODIUM CHLORIDE 0.9% 1,000 ML IV ONE ×2 (13:25)
[2017-12-27] MEDS ORDERED: PROMETHAZINE HCL 25 MG/ML 1ML IV ONE (13:30)
[2017-12-27] MEDS ORDERED: KETOROLAC TROMETH 30 MG/ML 1ML VIAL IV ONE (13:30)
[2017-12-27 13:55] LABS: Basophils # (auto) 0.1 uL; Basophils % (auto) 1.2 % (0.0-2.0); Eosinophils # (auto) 0.1 uL; Eosinophils % (auto) 0.8 % (0.0-7.0); Hemoglobin 14.3 g/dL (13.5-17.5); Lymphocytes # (auto) 2.9 uL; Lymphocytes % (auto) 24.9 % (10.0-50.0); Mean Corpuscular Hemoglobin 27.8 pg (28.0-32.0); Mean Corpuscular Hgb Conc. 32.4 g/dL (32.0-36.0); Mean Corpuscular Volume 85.7 fL (80.0-100.0); Monocytes # (auto) 1.3 uL; Monocytes % (auto) 11.3 % (0.0-12.0); Neutrophils # (auto) 7.1 uL; Neutrophils % (auto) 61.8 % (37.0-80.0); Nucleated Red Blood Cells % 0.1 %; Platelet Count (auto) 333 10^3/uL (140-450); Red Blood Cells 5.14 10^6/uL (4.5-5.90); Red Cell Distribution Width 16.7 % (11.8-14.3); White Blood Cell 11.6 10^3/uL (4.4-10.8)
[2017-12-27 14:17] LABS: Albumin 3.6 g/dL (3.4-5.0); BUN/Creatinine Ratio 11.4; Bilirubin, Total 1.1 mg/dL (0.2-1.0); Calcium 8.7 mg/dL (8.5-10.1); Potassium 3.2 mmol/L (3.5-5.1)
[2017-12-27] MEDS ORDERED: POTASSIUM CHL 10% (20 MEQ/15ML) 15ml ORAL SOLN PO ONE (14:45)
== END 2017-12-27 17:38 | disposition left against medical advice (07) ==
LOC: EDBD 13:13 → ER 13:13
DX: R10.9 Unspecified abdominal pain (principal); F12.90 Cannabis use, unspecified, uncomplicated; E87.6 Hypokalemia; K21.9 Gastro-esophageal reflux disease without esophagitis; I11.0 Hypertensive heart disease with heart failure; I50.9 Heart failure, unspecified; E78.5 Hyperlipidemia, unspecified; J44.9 Chronic obstructive pulmonary disease, unspecified; I25.2 Old myocardial infarction; Z90.49 Acquired absence of other specified parts of digestive tract; Z88.8 Allergy status to other drugs, medicaments and biological substances; Z88.5 Allergy status to narcotic agent; Z79.899 Other long term (current) drug therapy; Z79.82 Long term (current) use of aspirin
CPT/HCPCS: 36415; 80053; 82150; 83690; 85025

== ENCOUNTER 2018-02-15 23:35 | Inpatient (IN) | payer MEDICAID ==
[~2018-02-15] VITALS: Ht 172.7 cm; Wt 121.6 kg
[2018-02-16 00:40] LABS: Basophils # (auto) 0.1 uL; Eosinophils # (auto) 0.4 uL; Eosinophils % (auto) 6.7 % (0.0-7.0); Hematocrit 39.8 % (41.0-53.0); Lymphocytes # (auto) 2.3 uL; Lymphocytes % (auto) 42.8 % (10.0-50.0); Mean Corpuscular Hemoglobin 28.1 pg (28.0-32.0); Mean Corpuscular Hgb Conc. 32.7 g/dL (32.0-36.0); Mean Corpuscular Volume 85.8 fL (80.0-100.0); Monocytes # (auto) 0.5 uL; Monocytes % (auto) 9.5 % (0.0-12.0); Neutrophils # (auto) 2.1 uL; Nucleated Red Blood Cells % 0.1 %; Platelet Count (auto) 288 10^3/uL (140-450); Red Blood Cells 4.65 10^6/uL (4.5-5.90); Red Cell Distribution Width 17.8 % (11.8-14.3); White Blood Cell 5.4 10^3/uL (4.4-10.8)
[2018-02-16 00:59] LABS: Alanine Aminotransferase 24 U/L (16-61); Albumin 3.1 g/dL (3.4-5.0); Anion Gap 7 (5-15); Aspartate Aminotransferase 16 U/L (15-37); BUN/Creatinine Ratio 8.2; Blood Urea Nitrogen 9 mg/dL (7-18); Carbon Dioxide 27 mmol/L (21-32); Chloride 109 mmol/L (98-107); GFR African American 95 mL/min; GFR Non-African American 78 mL/min; Glucose 105 mg/dL (74-106); Potassium 3.3 mmol/L (3.5-5.1); Sodium 143 mmol/L (136-145)
[2018-02-16 01:03] LABS: Alkaline Phosphatase 61 U/L (45-117); Bilirubin, Total 0.4 mg/dL (0.2-1.0); Total Protein 7.2 g/dL (6.4-8.2)
[2018-02-16] MEDS ORDERED: MEPERIDINE HCL (50 MG/ML) 1 ML VIAL IV ONE (04:30)
[2018-02-16] MEDS ORDERED: ONDANSETRON HCL 4 MG/2 ML VIAL IV ONE (04:30)
[2018-02-16 05:06] LABS: INR 1.63 (0.9-1.15)
[2018-02-16 05:50] LABS: Urine Bacteria NONE SEEN /hpf (None Seen); Urine Blood Negative /uL (Negative); Urine Specific Gravity 1.014 (1.001-1.035); Urine WBC 1 /hpf (0 - 3)
[2018-02-16 06:14] LABS: Alcohol, Urine < 3.0 mg/dL (0-5); Amphetamine Screen, Urine NEGATIVE (NEGATIVE); Barbiturate Scree,Urine NEGATIVE (NEGATIVE); Benzodiazephine Screen, Urine NEGATIVE (NEGATIVE); Cannabinoid Screen, Urine POSITIVE (NEGATIVE); Cocaine Screen, Urine NEGATIVE (NEGATIVE); Opiate Scree,Urine NEGATIVE (NEGATIVE); Phencyclidine Screen, Urine NEGATIVE (NEGATIVE)
[2018-02-16] MEDS ORDERED: NITROGLYCERIN 0.4 MG SL TAB SL PRN (06:45)
[2018-02-16] MEDS ORDERED: MORPHINE SULF INJ 2 MG/ML SYRINGE 1ML IV PRN (06:45)
[2018-02-16] MEDS ORDERED: TEMAZEPAM 15 MG CAP PO PRN (06:45)
[2018-02-16] MEDS ORDERED: ACETAMINOPHEN 325 MG TAB PO PRN (06:45)
[2018-02-16] MEDS ORDERED: HYDROcodone-ACET 5/325MG TAB PO PRN (06:45)
[2018-02-16] MEDS ORDERED: ALBUTEROL SULF 2.5 MG/0.5ML(0.5%) NEB SOLN NEB PRN (06:45)
[2018-02-16] MEDS ORDERED: NALBUPHINE HCL 10 MG/1ml INJECTION IV PRN (06:45)
[2018-02-16] MEDS ORDERED: ONDANSETRON HCL 4 MG/2 ML VIAL IV PRN (06:45)
[2018-02-16] MEDS ORDERED: POTASSIUM CHL 20 Meq TABLET PO ONE (06:45)
[2018-02-16 07:26] VITALS: BP 116/68
[2018-02-16] MEDS ORDERED: LISINOPRIL 20 MG TAB PO SCH (10:00)
[2018-02-16] MEDS ORDERED: CARVEDILOL 12.5 MG TAB PO SCH (10:00)
[2018-02-16] MEDS ORDERED: ASPirin 81 mg TAB PO SCH (10:00)
[2018-02-16] MEDS ORDERED: SPIRONOLACTONE 25 MG TAB PO SCH (10:00)
[2018-02-16] MEDS ORDERED: PANTOPRAZOLE 40 MG TAB PO SCH (10:00)
[2018-02-16] MEDS ORDERED: MEPERIDINE HCL (25 MG/ML) 1ML VIAL IV PRN (11:15)
[2018-02-16] MEDS ORDERED: WARFARIN SODIUM 2.5 MG TAB PO ONE (17:00)
[2018-02-16] MEDS ORDERED: FUROSEMIDE 40 MG TAB PO SCH (18:00)
[2018-02-16 18:47] VITALS: BP 168/89
== END 2018-02-16 19:02 | disposition home or self-care (01) | DRG 243 ==
LOC: EDBD 23:35 → ER 23:35 → TELE 23:36
PROVIDERS: ADMIT Nurse Practitioner; ATTEND Internal Medicine
DX: K21.9 Gastro-esophageal reflux disease without esophagitis (principal); D68.69 Other thrombophilia; I42.0 Dilated cardiomyopathy; I11.0 Hypertensive heart disease with heart failure; I50.20 Unspecified systolic (congestive) heart failure; Z68.41 Body mass index [BMI] 40.0-44.9, adult; I25.2 Old myocardial infarction; E66.01 Morbid (severe) obesity due to excess calories; I25.10 Atherosclerotic heart disease of native coronary artery without angina pectoris; E78.5 Hyperlipidemia, unspecified; F41.9 Anxiety disorder, unspecified; F12.90 Cannabis use, unspecified, uncomplicated; J44.9 Chronic obstructive pulmonary disease, unspecified; I05.0 Rheumatic mitral stenosis; Z82.3 Family history of stroke; Z82.49 Family history of ischemic heart disease and other diseases of the circulatory system; Z83.3 Family history of diabetes mellitus; Z86.73 Personal history of transient ischemic attack (TIA), and cerebral infarction without residual deficits; Z90.49 Acquired absence of other specified parts of digestive tract; Z88.8 Allergy status to other drugs, medicaments and biological substances; Z79.899 Other long term (current) drug therapy; Z79.82 Long term (current) use of aspirin
CPT/HCPCS: 36415; 71045; 80053; 80307; 81001; 82962; 83735; 83880; 84484; 85025; 85379; 85610; 85730; 93005; 96374; 96375; 96376; J2405

== ENCOUNTER 2018-03-16 05:55 | Emergency (ER) | payer MEDICAID ==
[~2018-03-16] VITALS: Ht 172.7 cm; Wt 108.9 kg
[~2018-03-16 05:55] MED LIST changes: +SPIR25TA8 PO; -SPIR25TA89 PO
[2018-03-16 07:02] LABS: Basophils # (auto) 0.1 uL; Basophils % (auto) 1.2 % (0.0-2.0); Eosinophils # (auto) 0.3 uL; Eosinophils % (auto) 3.5 % (0.0-7.0); Hematocrit 45.2 % (41.0-53.0); Hemoglobin 15.2 g/dL (13.5-17.5); Lymphocytes # (auto) 2.8 uL; Lymphocytes % (auto) 35.1 % (10.0-50.0); Mean Corpuscular Hgb Conc. 33.5 g/dL (32.0-36.0); Mean Corpuscular Volume 86.3 fL (80.0-100.0); Monocytes # (auto) 0.6 uL; Monocytes % (auto) 6.8 % (0.0-12.0); Neutrophils # (auto) 4.3 uL; Neutrophils % (auto) 53.4 % (37.0-80.0); Nucleated Red Blood Cells % 0.1 %; Platelet Count (auto) 332 10^3/uL (140-450); Red Blood Cells 5.23 10^6/uL (4.5-5.90); Red Cell Distribution Width 18.2 % (11.8-14.3); White Blood Cell 8.1 10^3/uL (4.4-10.8)
[2018-03-16] MEDS ORDERED: SODIUM CHLORIDE 0.9% 1,000 ML IV ONE (07:05)
[2018-03-16 07:13] LABS: Albumin 3.5 g/dL (3.4-5.0); Anion Gap 7 (5-15); Blood Urea Nitrogen 10 mg/dL (7-18); Calcium 8.5 mg/dL (8.5-10.1); Carbon Dioxide 27 mmol/L (21-32); Chloride 107 mmol/L (98-107); Glucose 118 mg/dL (74-106); Potassium 3.9 mmol/L (3.5-5.1); Sodium 141 mmol/L (136-145)
[2018-03-16 07:15] LABS: Alanine Aminotransferase 27 U/L (16-61); Aspartate Aminotransferase 14 U/L (15-37); BUN/Creatinine Ratio 10.2; GFR African American 108 mL/min; GFR Non-African American 90 mL/min; Lipase 92 U/L (73-393)
[2018-03-16] MEDS ORDERED: MEPERIDINE HCL (50 MG/ML) 1 ML VIAL IV ONE (07:15)
[2018-03-16] MEDS ORDERED: PROMETHAZINE HCL 25 MG/ML 1ML IV PRN (07:15)
[2018-03-16 07:26] LABS: INR 1.83 (0.9-1.15); Partial Thromboplastin Time 30.5 sec (23.78-33.04); Prothrombin Time 18.9 sec (9.27-12.13)
[2018-03-16 07:29] LABS: Urine Bacteria NONE SEEN /hpf (None Seen); Urine Blood 2+ /uL (Negative); Urine Mucus FEW (None Seen); Urine Specific Gravity 1.024 (1.001-1.035); Urine WBC 1 /hpf (0 - 3)
[2018-03-16 07:30] LABS: Alkaline Phosphatase 76 U/L (45-117); Bilirubin, Total 0.4 mg/dL (0.2-1.0); Total Protein 8.2 g/dL (6.4-8.2)
[2018-03-16] MEDS ORDERED: ONDANSETRON HCL 4 MG/2 ML VIAL ONE (07:30)
[2018-03-16] MEDS ORDERED: ONDANSETRON HCL 4 MG/2 ML VIAL IV ONE (07:45)
[2018-03-16 08:00] VITALS: BP 144/67
[2018-03-16 08:52] LABS: Alcohol, Urine < 3.0 mg/dL (0-5); Amphetamine Screen, Urine NEGATIVE (NEGATIVE); Barbiturate Scree,Urine NEGATIVE (NEGATIVE); Benzodiazephine Screen, Urine NEGATIVE (NEGATIVE); Cannabinoid Screen, Urine POSITIVE (NEGATIVE); Cocaine Screen, Urine NEGATIVE (NEGATIVE); Opiate Scree,Urine NEGATIVE (NEGATIVE); Phencyclidine Screen, Urine NEGATIVE (NEGATIVE)
== END 2018-03-16 11:37 | disposition home or self-care (01) ==
LOC: EDUNIT# 05:55 → EDBD 05:55 → ER 06:01
DX: K52.9 Noninfective gastroenteritis and colitis, unspecified (principal); K21.9 Gastro-esophageal reflux disease without esophagitis; F12.19 Cannabis abuse with unspecified cannabis-induced disorder; R11.10 Vomiting, unspecified; E78.5 Hyperlipidemia, unspecified; I25.2 Old myocardial infarction; I11.0 Hypertensive heart disease with heart failure; I50.9 Heart failure, unspecified; Z87.891 Personal history of nicotine dependence; Z90.49 Acquired absence of other specified parts of digestive tract; Z88.8 Allergy status to other drugs, medicaments and biological substances; Z88.5 Allergy status to narcotic agent; Z79.01 Long term (current) use of anticoagulants; Z79.899 Other long term (current) drug therapy
CPT/HCPCS: 36415; 71046; 74176; 80053; 80307; 81001; 83690; 83735; 84484; 85025; 85610; 85730; 93005; 94761; 96361; 96374; 96375; 99285; J2175; J2405; J7030

== ENCOUNTER 2018-04-01 10:24 | Emergency (ER) | payer MEDICAID ==
[~2018-04-01] VITALS: Ht 172.7 cm; Wt 115.7 kg
[2018-04-01] MEDS ORDERED: SODIUM CHLORIDE 0.9% 500 ML IVB ONE (10:59)
[2018-04-01] MEDS ORDERED: PANTOPRAZOLE 40 MG/10 ML VIAL IV STA (10:59)
[2018-04-01] MEDS ORDERED: PROCHLORPERAZINE EDISYLATE 5 MG/ML 2ML VIAL IV ONE (11:00)
[2018-04-01] MEDS ORDERED: HYDROmorphone HCL 2 MG/ML VL IV ONE (11:00)
[2018-04-01 11:01] LABS: Urine WBC None Seen /hpf (0 - 3)
[2018-04-01 11:04] LABS: Basophils # (auto) 0.1 uL; Basophils % (auto) 0.8 % (0.0-2.0); Eosinophils # (auto) 0.1 uL; Eosinophils % (auto) 1.2 % (0.0-7.0); Hematocrit 45.7 % (41.0-53.0); Hemoglobin 15.1 g/dL (13.5-17.5); Lymphocytes # (auto) 1.1 uL; Lymphocytes % (auto) 15.9 % (10.0-50.0); Mean Corpuscular Hgb Conc. 33.1 g/dL (32.0-36.0); Mean Corpuscular Volume 87.6 fL (80.0-100.0); Monocytes # (auto) 0.3 uL; Monocytes % (auto) 4.3 % (0.0-12.0); Neutrophils # (auto) 5.4 uL; Neutrophils % (auto) 77.8 % (37.0-80.0); Nucleated Red Blood Cells % 0.1 %; Platelet Count (auto) 317 10^3/uL (140-450); Red Blood Cells 5.22 10^6/uL (4.5-5.90)
[2018-04-01 11:05] VITALS: BP 193/108
[2018-04-01 11:11] LABS: Urine Bacteria NONE SEEN /hpf (None Seen); Urine Blood Negative /uL (Negative); Urine Mucus FEW (None Seen); Urine Specific Gravity 1.014 (1.001-1.035)
[2018-04-01 11:18] LABS: Amylase 78 U/L (25-115); Lipase 80 U/L (73-393)
[2018-04-01 11:22] LABS: Albumin 3.5 g/dL (3.4-5.0); Bilirubin, Total 0.5 mg/dL (0.2-1.0); Calcium 8.5 mg/dL (8.5-10.1); Potassium 3.7 mmol/L (3.5-5.1)
== END 2018-04-01 11:34 | disposition home or self-care (01) ==
LOC: ER 10:24 → EDBD 10:24 → EDUNIT# 10:24 → ER 11:34
DX: F12.188 Cannabis abuse with other cannabis-induced disorder (principal); I11.0 Hypertensive heart disease with heart failure; I50.9 Heart failure, unspecified; I25.2 Old myocardial infarction; J44.9 Chronic obstructive pulmonary disease, unspecified; F12.10 Cannabis abuse, uncomplicated; Z88.6 Allergy status to analgesic agent; Z88.8 Allergy status to other drugs, medicaments and biological substances
CPT/HCPCS: 36415; 80053; 81001; 82150; 83690; 85025; 94761; 96374; 96375; 99285; C9113; J0780; J1170; J7030

== ENCOUNTER 2018-04-03 09:04 | Emergency (ER) | payer MEDICAID ==
[~2018-04-03] VITALS: Ht 175.3 cm; Wt 121.6 kg
[2018-04-03 09:58] LABS: Basophils # (auto) 0.1 uL; Basophils % (auto) 1.2 % (0.0-2.0); Eosinophils # (auto) 0.2 uL; Hematocrit 44.7 % (41.0-53.0); Hemoglobin 14.8 g/dL (13.5-17.5); Lymphocytes % (auto) 24.3 % (10.0-50.0); Mean Corpuscular Hemoglobin 28.7 pg (28.0-32.0); Mean Corpuscular Hgb Conc. 33.1 g/dL (32.0-36.0); Mean Corpuscular Volume 86.6 fL (80.0-100.0); Monocytes # (auto) 0.5 uL; Monocytes % (auto) 6.5 % (0.0-12.0); Neutrophils # (auto) 5.3 uL; Nucleated Red Blood Cells % 0.1 %; Platelet Count (auto) 323 10^3/uL (140-450); Red Blood Cells 5.16 10^6/uL (4.5-5.90); Red Cell Distribution Width 17.7 % (11.8-14.3); White Blood Cell 8.1 10^3/uL (4.4-10.8)
[2018-04-03 10:11] LABS: Urine Bacteria NONE SEEN /hpf (None Seen); Urine Blood Negative /uL (Negative); Urine Mucus FEW (None Seen); Urine Specific Gravity 1.019 (1.001-1.035); Urine WBC 1 /hpf (0 - 3)
[2018-04-03 10:19] LABS: Albumin 3.6 g/dL (3.4-5.0); Bilirubin, Total 0.4 mg/dL (0.2-1.0); Calcium 8.7 mg/dL (8.5-10.1); Potassium 3.6 mmol/L (3.5-5.1); Total Protein 7.8 g/dL (6.4-8.2)
[2018-04-03 10:31] LABS: Alcohol, Urine < 3.0 mg/dL (0-5); Amphetamine Screen, Urine NEGATIVE (NEGATIVE); Barbiturate Scree,Urine NEGATIVE (NEGATIVE); Benzodiazephine Screen, Urine NEGATIVE (NEGATIVE); Cannabinoid Screen, Urine POSITIVE (NEGATIVE); Cocaine Screen, Urine NEGATIVE (NEGATIVE); Opiate Scree,Urine NEGATIVE (NEGATIVE); Phencyclidine Screen, Urine NEGATIVE (NEGATIVE)
[2018-04-03] MEDS ORDERED: PROCHLORPERAZINE EDISYLATE 5 MG/ML 2ML VIAL IV ONE (10:45)
[2018-04-03] MEDS ORDERED: LABETALOL HCL 5 MG/ML ML 20ML VIAL IV ONE (10:45)
[2018-04-03] MEDS ORDERED: MEPERIDINE HCL (50 MG/ML) 1 ML VIAL IV ONE (10:45)
[2018-04-03] MEDS ORDERED: PANTOPRAZOLE 40 MG/10 ML VIAL IV STA (10:50)
[2018-04-03] MEDS ORDERED: SODIUM CHLORIDE 0.9% 1,000 ML IV ONE (10:50)
[2018-04-03] MEDS ORDERED: DONNATAL 5ml ORAL Elix (BELLADONNA ALK-PHENOBARB) PO ONE (11:00)
[2018-04-03] MEDS ORDERED: ALUM & MAG HYDROX-SIMETH LIQ(MAALOX) 30 ML PO ONE (11:00)
[2018-04-03] MEDS ORDERED: LIDOCAINE VISCOUS 2% 15ML UD PO ONE (11:00)
[2018-04-03 11:32] LABS: INR 1.01 (0.9-1.15); Partial Thromboplastin Time 28.2 sec (23.78-33.04); Prothrombin Time 10.8 sec (9.27-12.13)
[2018-04-03 15:21] VITALS: BP 135/82
== END 2018-04-03 15:49 | disposition home or self-care (01) ==
LOC: EDBD 09:04 → ER 09:08
DX: R10.9 Unspecified abdominal pain (principal); R11.2 Nausea with vomiting, unspecified; I10 Essential (primary) hypertension; F12.10 Cannabis abuse, uncomplicated; K21.9 Gastro-esophageal reflux disease without esophagitis; E78.5 Hyperlipidemia, unspecified; I25.2 Old myocardial infarction; J44.9 Chronic obstructive pulmonary disease, unspecified; Z88.8 Allergy status to other drugs, medicaments and biological substances; Z88.5 Allergy status to narcotic agent; Z79.01 Long term (current) use of anticoagulants; Z79.82 Long term (current) use of aspirin; Z90.49 Acquired absence of other specified parts of digestive tract
CPT/HCPCS: 36415; 80053; 80307; 81001; 82150; 83690; 83735; 84443; 84484; 85025; 85610; 85730; 93005; 96361; 96374; 96375; 99285; C9113; J0780; J2175; J7030

== ENCOUNTER 2018-06-19 08:28 | Emergency (ER) | payer MEDICAID ==
[~2018-06-19] VITALS: Ht 172.7 cm; Wt 121.6 kg
[2018-06-19] MEDS ORDERED: SODIUM CHLORIDE 0.9% 1,000 ML IV ONE (08:39)
[2018-06-19] MEDS ORDERED: LORazepam 2MG/ML-1ML VIAL IV ONE (08:45)
[2018-06-19] MEDS ORDERED: PROMETHAZINE HCL 25 MG/ML 1ML IV ONE (08:45)
[2018-06-19] MEDS ORDERED: MORPHINE SULFATE 4 MG/ML SYR/VIAL IV ONE (08:45)
[2018-06-19] MEDS ORDERED: hydrALAZINE HCL 20 MG/ML VL IV ONE (08:45)
[2018-06-19] MEDS ORDERED: NALBUPHINE HCL 10 MG/1ml INJECTION IV ONE (09:00)
[2018-06-19 09:11] LABS: Basophils # (auto) 0.1 uL; Basophils % (auto) 0.8 % (0.0-2.0); Eosinophils # (auto) 0.2 uL; Eosinophils % (auto) 1.6 % (0.0-7.0); Hematocrit 44.4 % (41.0-53.0); Hemoglobin 14.3 g/dL (13.5-17.5); Lymphocytes % (auto) 17.4 % (10.0-50.0); Mean Corpuscular Hemoglobin 28.6 pg (28.0-32.0); Mean Corpuscular Hgb Conc. 32.2 g/dL (32.0-36.0); Mean Corpuscular Volume 88.9 fL (80.0-100.0); Monocytes # (auto) 0.8 uL; Monocytes % (auto) 6.5 % (0.0-12.0); Neutrophils # (auto) 8.5 uL; Neutrophils % (auto) 73.7 % (37.0-80.0); Nucleated Red Blood Cells % 0.1 %; Platelet Count (auto) 406 10^3/uL (140-450); Red Blood Cells 4.99 10^6/uL (4.5-5.90); Red Cell Distribution Width 17.3 % (11.8-14.3); White Blood Cell 11.6 10^3/uL (4.4-10.8)
[2018-06-19 09:28] LABS: Alanine Aminotransferase 29 U/L (16-61); Albumin 3.4 g/dL (3.4-5.0); Anion Gap 5 (5-15); Blood Urea Nitrogen 10 mg/dL (7-18); Calcium 8.4 mg/dL (8.5-10.1); Carbon Dioxide 23 mmol/L (21-32); Chloride 110 mmol/L (98-107); Glucose 112 mg/dL (74-106); Potassium 3.8 mmol/L (3.5-5.1); Sodium 138 mmol/L (136-145)
[2018-06-19 09:33] LABS: Alkaline Phosphatase 69 U/L (45-117); Aspartate Aminotransferase 17 U/L (15-37); Bilirubin, Total 0.4 mg/dL (0.2-1.0); GFR African American 118 mL/min; GFR Non-African American 98 mL/min
[2018-06-19 09:34] LABS: INR 1.27 (0.9-1.15); Partial Thromboplastin Time 25.8 sec (23.78-33.04); Prothrombin Time 13.4 sec (9.27-12.13)
[2018-06-19] MEDS ORDERED: cefTRIAXone 1GM/50ML D5W 50 ML IV ONE (10:00)
[2018-06-19 11:30] VITALS: BP 184/90
[2018-06-19 11:32] LABS: Urine Bacteria NONE SEEN /hpf (None Seen); Urine Blood Negative /uL (Negative); Urine Mucus FEW (None Seen); Urine Specific Gravity 1.011 (1.001-1.035); Urine WBC 1 /hpf (0 - 3)
== END 2018-06-19 12:29 | disposition home or self-care (01) ==
LOC: ER 08:29
DX: R07.89 Other chest pain (principal); K52.9 Noninfective gastroenteritis and colitis, unspecified; I11.0 Hypertensive heart disease with heart failure; I50.9 Heart failure, unspecified; F12.10 Cannabis abuse, uncomplicated; I25.2 Old myocardial infarction; Z90.49 Acquired absence of other specified parts of digestive tract; Z88.6 Allergy status to analgesic agent; Z88.8 Allergy status to other drugs, medicaments and biological substances; Z79.899 Other long term (current) drug therapy
CPT/HCPCS: 36415; 71045; 74176; 80053; 81001; 84484; 85025; 85610; 85730; 93005; 96361; 96365; 96375; 99284; J0360; J0696; J2060; J2300; J2550; J7030

== ENCOUNTER 2019-03-17 11:44 | Emergency (ER) | payer MEDICAID ==
[~2019-03-17] VITALS: Ht 172.7 cm; Wt 121.6 kg
[~2019-03-17 11:44] MED LIST changes: +ASPI-404 PO; -ASPI81TA27 PO
[2019-03-17] MEDS ORDERED: SODIUM CHLORIDE 0.9% 500 ML IVB ONE (11:58)
[2019-03-17] MEDS ORDERED: ONDANSETRON HCL 4 MG/2 ML VIAL IV ONE (12:00)
[2019-03-17] MEDS ORDERED: HYDROmorphone HCL 2 MG/ML VL IV ONE (12:00)
[2019-03-17] MEDS ORDERED: FAMOTIDINE (10MG/ML) 2ML VL IV ONE (12:00)
[2019-03-17 12:39] LABS: Basophils # (auto) 0.1 uL; Basophils % (auto) 0.7 % (0.0-2.0); Eosinophils # (auto) 0.1 uL; Eosinophils % (auto) 0.6 % (0.0-7.0); Hematocrit 49.3 % (41.0-53.0); Hemoglobin 16.3 g/dL (13.5-17.5); Lymphocytes # (auto) 1.5 uL; Mean Corpuscular Hemoglobin 29.7 pg (28.0-32.0); Mean Corpuscular Volume 89.9 fL (80.0-100.0); Monocytes # (auto) 0.5 uL; Monocytes % (auto) 4.9 % (0.0-12.0); Neutrophils # (auto) 7.2 uL; Neutrophils % (auto) 77.8 % (37.0-80.0); Platelet Count (auto) 320 10^3/uL (140-450); Red Blood Cells 5.48 10^6/uL (4.5-5.90); Red Cell Distribution Width 16.3 % (11.8-14.3); White Blood Cell 9.3 10^3/uL (4.4-10.8)
[2019-03-17 12:56] LABS: Alanine Aminotransferase 27 U/L (16-61); Albumin 3.7 g/dL (3.4-5.0); Anion Gap 8 (5-15); Aspartate Aminotransferase 16 U/L (15-37); BUN/Creatinine Ratio 9.8; Blood Urea Nitrogen 9 mg/dL (7-18); Calcium 8.6 mg/dL (8.5-10.1); Carbon Dioxide 25 mmol/L (21-32); Chloride 105 mmol/L (98-107); GFR African American 116 mL/min; GFR Non-African American 96 mL/min; Glucose 100 mg/dL (74-106); Lipase 63 U/L (73-393); Potassium 3.6 mmol/L (3.5-5.1); Sodium 138 mmol/L (136-145)
[2019-03-17 13:01] LABS: Alkaline Phosphatase 71 U/L (45-117); Bilirubin, Total 0.5 mg/dL (0.2-1.0); Total Protein 8.3 g/dL (6.4-8.2)
[2019-03-17 17:30] VITALS: BP 131/93
== END 2019-03-17 17:37 | disposition home or self-care (01) ==
LOC: ER 11:44 → EDBD 11:44 → ER 17:37
DX: I24.9 Acute ischemic heart disease, unspecified (principal); R11.10 Vomiting, unspecified; I11.0 Hypertensive heart disease with heart failure; I50.9 Heart failure, unspecified; J44.9 Chronic obstructive pulmonary disease, unspecified; E78.00 Pure hypercholesterolemia, unspecified; I25.2 Old myocardial infarction; Z86.73 Personal history of transient ischemic attack (TIA), and cerebral infarction without residual deficits; Z90.49 Acquired absence of other specified parts of digestive tract; Z88.5 Allergy status to narcotic agent; Z88.8 Allergy status to other drugs, medicaments and biological substances; Z79.01 Long term (current) use of anticoagulants; Z79.82 Long term (current) use of aspirin; Z79.899 Other long term (current) drug therapy
CPT/HCPCS: 36415; 71045; 80053; 83690; 83735; 84484; 85025; 93005; 94761; 96361; 96374; 96375; 99284; J1170; J2405; J3490; J7040

== ENCOUNTER 2019-05-02 09:34 | Emergency (ER) | payer MEDICARE, MEDICAID ==
[~2019-05-02] VITALS: Ht 172.7 cm; Wt 117.9 kg
[2019-05-02 10:01] VITALS: BP 150/102
== END 2019-05-02 14:08 | disposition home or self-care (01) ==
LOC: ER 09:34
DX: J06.9 Acute upper respiratory infection, unspecified (principal); I11.0 Hypertensive heart disease with heart failure; I50.9 Heart failure, unspecified; J44.9 Chronic obstructive pulmonary disease, unspecified; E78.5 Hyperlipidemia, unspecified; I25.2 Old myocardial infarction; Z87.442 Personal history of urinary calculi; Z86.73 Personal history of transient ischemic attack (TIA), and cerebral infarction without residual deficits
CPT/HCPCS: 71046

== ENCOUNTER 2019-05-18 09:18 | Emergency (ER) | payer MEDICAID ==
[~2019-05-18] VITALS: Ht 172.7 cm; Wt 116.1 kg
[2019-05-18 09:55] VITALS: BP 143/85
== END 2019-05-18 10:57 | disposition home or self-care (01) ==
LOC: ER 09:22
DX: J06.9 Acute upper respiratory infection, unspecified (principal); J02.9 Acute pharyngitis, unspecified; I11.0 Hypertensive heart disease with heart failure; I50.9 Heart failure, unspecified; J44.9 Chronic obstructive pulmonary disease, unspecified; K21.9 Gastro-esophageal reflux disease without esophagitis; E78.5 Hyperlipidemia, unspecified; F17.210 Nicotine dependence, cigarettes, uncomplicated; F12.10 Cannabis abuse, uncomplicated; I25.2 Old myocardial infarction; Z90.49 Acquired absence of other specified parts of digestive tract; Z86.73 Personal history of transient ischemic attack (TIA), and cerebral infarction without residual deficits

== ENCOUNTER → 2020-01-25 | Emergency (ER) | payer MEDICAID, MEDICARE ==
[~2020-01-25] VITALS: Ht 172.7 cm; Wt 104.3 kg
[2020-01-25 04:47] VITALS: BP 150/93
== END | disposition left against medical advice (07) ==
LOC: ER 04:31
DX: J02.9 Acute pharyngitis, unspecified (principal); Z53.21 Procedure and treatment not carried out due to patient leaving prior to being seen by health care provider

== ENCOUNTER 2021-03-06 16:21 | Emergency (ER) | payer MEDICAID, MEDICARE ==
[~2021-03-06] VITALS: Ht 172.7 cm; Wt 90.7 kg
[~2021-03-06 16:21] MED LIST changes: +ALPR0.25 PO; -ASPI-404 PO; +ASPI-543 PO; -LISI-646 PO; +LISI20TA28 PO; +OXYC-650 PO; +SUCR1TAB22 PO; -SUCR1TAB38 PO
[2021-03-06 16:24] VITALS: BP 134/91
== END 2021-03-06 18:05 | disposition home or self-care (01) ==
LOC: ER 16:21
DX: Z43.1 Encounter for attention to gastrostomy (principal); I11.0 Hypertensive heart disease with heart failure; I50.9 Heart failure, unspecified; J44.9 Chronic obstructive pulmonary disease, unspecified; E78.5 Hyperlipidemia, unspecified; K21.9 Gastro-esophageal reflux disease without esophagitis; I25.2 Old myocardial infarction; F17.210 Nicotine dependence, cigarettes, uncomplicated; Z86.73 Personal history of transient ischemic attack (TIA), and cerebral infarction without residual deficits; Z90.49 Acquired absence of other specified parts of digestive tract; Z79.01 Long term (current) use of anticoagulants; Z79.82 Long term (current) use of aspirin; Z79.899 Other long term (current) drug therapy; Z88.5 Allergy status to narcotic agent; Z88.8 Allergy status to other drugs, medicaments and biological substances

== ENCOUNTER 2021-08-18 11:10 | Inpatient (IN) | payer MEDICARE, MEDICAID ==
[~2021-08-18] VITALS: Ht 175.3 cm; Wt 107.8 kg
[2021-08-18] MEDS ORDERED: LORazepam 2MG/ML-1ML VIAL IM ONE (11:30)
[2021-08-18] MEDS ORDERED: LORazepam 2MG/ML-1ML VIAL IV ONE ×2 (11:30→18:00)
[2021-08-18] MEDS ORDERED: SODIUM CHLORIDE 0.9% 1,000 ML IV ONE ×2 (11:30)
[2021-08-18 11:58] LABS: Basophils # (auto) 0.2 10 ^3/uL (0-0.2); Basophils % (auto) 1.4 % (0.0-2.0); Eosinophils # (auto) 0.4 10 ^3/uL (0-0.8); Eosinophils % (auto) 3.5 % (0.0-7.0); Hematocrit 44.7 % (41.0-53.0); Hemoglobin 14.5 g/dL (13.5-17.5); Lymphocytes # (auto) 4.9 10 ^3/uL (0.4-5.4); Lymphocytes % (auto) 38.6 % (10.0-50.0); Mean Corpuscular Hemoglobin 28.9 pg (28.0-32.0); Mean Corpuscular Hgb Conc. 32.4 g/dL (32.0-36.0); Mean Corpuscular Volume 89.1 fL (80.0-100.0); Monocytes # (auto) 0.9 10 ^3/uL (0-1.3); Monocytes % (auto) 7.4 % (0.0-12.0); Neutrophils # (auto) 6.2 10 ^3/uL (1.6-8.6); Neutrophils % (auto) 49.1 % (37.0-80.0); Nucleated Red Blood Cells % 0.5 %; Red Blood Cells 5.02 10^6/uL (4.5-5.90); Red Cell Distribution Width 18.1 % (11.8-14.3); White Blood Cell 12.7 10^3/uL (4.4-10.8)
[2021-08-18 12:14] LABS: Albumin 3.5 g/dL (3.4-5.0); Calcium 8.5 mg/dL (8.5-10.1); Potassium 3.3 mmol/L (3.5-5.1)
[2021-08-18 12:20] LABS: BUN/Creatinine Ratio 10.5; Bilirubin, Total 0.4 mg/dL (0.2-1.0); Total Protein 8.3 g/dL (6.4-8.2)
[2021-08-18] MEDS ORDERED: LABETALOL HCL 5 MG/ML 4ML SYRINGE IV ONE (12:30)
[2021-08-18] MEDS ORDERED: hydrALAZINE HCL 20 MG/ML VL IV ONE (12:45)
[2021-08-18] MEDS ORDERED: NITROGLYCERIN 0.4 MG SL TAB SL PRN (17:30)
[2021-08-18] MEDS ORDERED: MORPHINE SULFATE INJECTION 2 MG/ML SYRG IV PRN ×2 (17:30→19:00)
[2021-08-18 18:26] LABS: Urine Bacteria FEW /hpf (None Seen); Urine Blood Negative /uL (Negative); Urine Hyaline Cast FEW /lpf (0 - 2); Urine WBC 2 /hpf (0 - 3)
[2021-08-18] MEDS ORDERED: HYDROcodone-ACET 5/325MG TAB PO ONE (19:00)
[2021-08-18] MEDS ORDERED: ONDANSETRON HCL 4 MG/2 ML VIAL IV PRN (19:00)
[2021-08-18] MEDS ORDERED: ALBUTEROL SULF 2.5 MG/0.5ML(0.5%) NEB SOLN NEB ONE (19:00)
[2021-08-18] MEDS ORDERED: HYDROcodone-ACET 5/325MG TAB PO PRN ×2 (19:00)
[2021-08-18] MEDS ORDERED: LACTULOSE 20Gm/30ML SOLN PO PRN (19:00)
[2021-08-18] MEDS ORDERED: DOCUSATE SOD 100 MG CAP PO PRN (19:00)
[2021-08-18] MEDS ORDERED: hydrALAZINE HCL 20 MG/ML VL IV PRN (19:00)
[2021-08-18] MEDS ORDERED: FAMOTIDINE (10MG/ML) 2ML VL IV ONE (19:00)
[2021-08-18] MEDS ORDERED: IPRATROPIUM BROM 0.5 MG/2.5ML INH SOL NEB ONE (19:00)
[2021-08-18 20:21] LABS: Magnesium 2.2 mg/dL (1.6-2.6); Phosphorus 3.2 mg/dL (2.5-4.90)
[2021-08-18] MEDS: ATORVASTATIN 20 MG TAB PO SCH (22:00)
[2021-08-18] MEDS: IPRATROPIUM BROM 0.5 MG/2.5ML INH SOL NEB SCH (22:14)
[2021-08-18] MEDS: ALBUTEROL SULF 2.5 MG/0.5ML(0.5%) NEB SOLN NEB PRN (22:14)
[2021-08-18] MEDS: ACETYLCYSTEINE 10 %(100MG/ML) SOL 4ML NEB SCH (22:15)
[2021-08-18 22:54] LABS: Partial Thromboplastin Time 27.2 sec (23.6-33.0)
[2021-08-18] MEDS: LORazepam 2MG/ML-1ML VIAL IV PRN (23:37)
[2021-08-19] MEDS: IPRATROPIUM BROM 0.5 MG/2.5ML INH SOL NEB SCH ×6 (02:00→22:00)
[2021-08-19] MEDS: LORazepam 2MG/ML-1ML VIAL IV PRN ×5 (02:10→20:00)
[2021-08-19] MEDS ORDERED: POTASSIUM CHL 20 Meq TABLET PO ONE (02:15)
[2021-08-19] MEDS ORDERED: MULTIPLE VITAMINS W/ MINERALS TAB PO ONE (02:15)
[2021-08-19] MEDS ORDERED: BUDESONIDE (INHALATION) 0.5 MG/2 ML NEB NEB ONE (02:15)
[2021-08-19] MEDS ORDERED: CLINDAMYCIN 600MG IV 50 ML IV ONE (02:30)
[2021-08-19] MEDS: BUDESONIDE (INHALATION) 0.5 MG/2 ML NEB NEB SCH ×3 (05:59→18:32)
[2021-08-19] MEDS: ALBUTEROL SULF 2.5 MG/0.5ML(0.5%) NEB SOLN NEB PRN ×3 (05:59→18:32)
[2021-08-19] MEDS: FUROSEMIDE 40 MG/4 ML VIAL IV SCH ×2 (06:00→18:13)
[2021-08-19] MEDS: AZTREONAM 1GM INJ 1 GM in D5W 5% 50 ML IV SCH ×3 (06:00→22:00)
[2021-08-19] MEDS: ACETYLCYSTEINE 10 %(100MG/ML) SOL 4ML NEB SCH ×3 (06:00→18:33)
[2021-08-19] MEDS: CLINDAMYCIN 600MG IV 50 ML IV SCH ×3 (06:26→21:00)
[2021-08-19] MEDS ORDERED: AZTREONAM 1 GM INJ VIAL ONE (06:42)
[2021-08-19] MEDS ORDERED: diphenhdrAMINE HCL 50 MG/1 ML VL IV ONE ×2 (07:15→14:15)
[2021-08-19] MEDS ORDERED: HALOPERIDOL LACTATE 5 MG/ML INJ VIAL IV PRN (07:15)
[2021-08-19] MEDS ORDERED: diphenhdrAMINE HCL 50 MG/1 ML VL ONE ×2 (07:15→14:01)
[2021-08-19] MEDS ORDERED: HALOPERIDOL LACTATE 5 MG/ML INJ VIAL ONE (07:16)
[2021-08-19] MEDS ORDERED: LORazepam 2MG/ML-1ML VIAL ONE (07:16)
[2021-08-19] MEDS: SPIRONOLACTONE 25 MG TAB PO SCH ×2 (07:26→18:00)
[2021-08-19] MEDS ORDERED: HALOPERIDOL LACTATE 5 MG/ML INJ VIAL IM ONE (07:30)
[2021-08-19] MEDS ORDERED: diphenhdrAMINE HCL 50 MG/1 ML VL IM ONE (07:30)
[2021-08-19 07:34] LABS: Potassium 3.7 mmol/L (3.5-5.1)
[2021-08-19 07:39] LABS: Basophils # (auto) 0 10 ^3/uL (0-0.2); Basophils % (auto) 0.3 % (0.0-2.0); Eosinophils # (auto) 0 10 ^3/uL (0-0.8); Hematocrit 41.5 % (41.0-53.0); Hemoglobin 13.5 g/dL (13.5-17.5); Lymphocytes # (auto) 1.5 10 ^3/uL (0.4-5.4); Lymphocytes % (auto) 11.3 % (10.0-50.0); Mean Corpuscular Hemoglobin 28.4 pg (28.0-32.0); Mean Corpuscular Hgb Conc. 32.4 g/dL (32.0-36.0); Mean Corpuscular Volume 87.6 fL (80.0-100.0); Monocytes % (auto) 7.7 % (0.0-12.0); Neutrophils # (auto) 10.4 10 ^3/uL (1.6-8.6); Neutrophils % (auto) 80.7 % (37.0-80.0); Nucleated Red Blood Cells % 0.1 %; Red Blood Cells 4.74 10^6/uL (4.5-5.90); Red Cell Distribution Width 18.2 % (11.8-14.3); White Blood Cell 12.8 10^3/uL (4.4-10.8)
[2021-08-19 07:51] LABS: BUN/Creatinine Ratio 10.4; Bilirubin, Total 0.5 mg/dL (0.2-1.0); Calcium 8.3 mg/dL (8.5-10.1); Magnesium 1.9 mg/dL (1.6-2.6); Phosphorus 1.8 mg/dL (2.5-4.90); Total Protein 7.6 g/dL (6.4-8.2); Uric Acid 5.5 mg/dL (3.5-7.2)
[2021-08-19 07:56] LABS: INR 1.07 (0.9-1.15); Partial Thromboplastin Time 27.1 sec (23.6-33.0)
[2021-08-19] MEDS ORDERED: LORazepam 2MG/ML-1ML VIAL IV PRN (09:00)
[2021-08-19] MEDS: POTASSIUM CHL 20 Meq TABLET PO SCH ×2 (10:00→22:00)
[2021-08-19] MEDS: MULTIPLE VITAMINS W/ MINERALS TAB PO SCH (10:00)
[2021-08-19] MEDS: BENAZEPRIL HCL 10 MG TAB PO SCH (10:00)
[2021-08-19] MEDS: METOPROLOL SUCCINATE XL 50 MG TAB PO SCH (10:00)
[2021-08-19] MEDS: ASPirin 81 mg TAB PO SCH (10:00)
[2021-08-19] MEDS: FAMOTIDINE (10MG/ML) 2ML VL IV SCH (10:12)
[2021-08-19 12:36] LABS: Alcohol, Urine < 3.0 mg/dL (0-10); Amphetamine Screen, Urine NEGATIVE (NEGATIVE); Barbiturate Scree,Urine NEGATIVE (NEGATIVE); Benzodiazephine Screen, Urine NEGATIVE (NEGATIVE); Cannabinoid Screen, Urine POSITIVE (NEGATIVE); Cocaine Screen, Urine NEGATIVE (NEGATIVE); Opiate Scree,Urine NEGATIVE (NEGATIVE); Phencyclidine Screen, Urine NEGATIVE (NEGATIVE)
[2021-08-19] MEDS: HALOPERIDOL LACTATE 5 MG/ML INJ VIAL IM PRN ×2 (14:21→22:51)
[2021-08-19] MEDS ORDERED: WARFARIN SODIUM 2.5 MG TAB PO ONE (17:00)
[2021-08-19] MEDS: ATORVASTATIN 20 MG TAB PO SCH (22:00)
[2021-08-20] MEDS ORDERED: levETIRAcetam 500 MG/5ML INJ IV ONE (00:43)
[2021-08-20] MEDS ORDERED: AZTREONAM 1 GM INJ VIAL ONE (00:43)
[2021-08-20] MEDS: LORazepam 2MG/ML-1ML VIAL IV PRN ×6 (00:51→20:59)
[2021-08-20] MEDS: BUDESONIDE (INHALATION) 0.5 MG/2 ML NEB NEB SCH ×2 (05:44→19:14)
[2021-08-20] MEDS: ACETYLCYSTEINE 10 %(100MG/ML) SOL 4ML NEB SCH ×2 (05:44→13:50)
[2021-08-20] MEDS: IPRATROPIUM BROM 0.5 MG/2.5ML INH SOL NEB SCH ×4 (05:45→19:14)
[2021-08-20] MEDS: ALBUTEROL SULF 2.5 MG/0.5ML(0.5%) NEB SOLN NEB PRN ×3 (05:45→13:49)
[2021-08-20] MEDS: SPIRONOLACTONE 25 MG TAB PO SCH ×2 (08:00→17:53)
[2021-08-20 08:06] LABS: Basophils # (auto) 0.1 10 ^3/uL (0-0.2); Basophils % (auto) 0.8 % (0.0-2.0); Eosinophils # (auto) 0 10 ^3/uL (0-0.8); Eosinophils % (auto) 0.1 % (0.0-7.0); Hematocrit 49.2 % (41.0-53.0); Hemoglobin 15.9 g/dL (13.5-17.5); Lymphocytes # (auto) 1.6 10 ^3/uL (0.4-5.4); Lymphocytes % (auto) 13.5 % (10.0-50.0); Mean Corpuscular Hemoglobin 28.3 pg (28.0-32.0); Mean Corpuscular Hgb Conc. 32.3 g/dL (32.0-36.0); Mean Corpuscular Volume 87.7 fL (80.0-100.0); Monocytes # (auto) 1.4 10 ^3/uL (0-1.3); Monocytes % (auto) 12.3 % (0.0-12.0); Neutrophils # (auto) 8.5 10 ^3/uL (1.6-8.6); Neutrophils % (auto) 73.3 % (37.0-80.0); Nucleated Red Blood Cells % 0.1 %; Red Blood Cells 5.62 10^6/uL (4.5-5.90); Red Cell Distribution Width 18.1 % (11.8-14.3); White Blood Cell 11.6 10^3/uL (4.4-10.8)
[2021-08-20] MEDS: FUROSEMIDE 40 MG/4 ML VIAL IV SCH ×2 (08:10→17:53)
[2021-08-20] MEDS: CLINDAMYCIN 600MG IV 50 ML IV SCH ×3 (08:10→21:59)
[2021-08-20 08:25] LABS: INR 1.07 (0.9-1.15); Partial Thromboplastin Time 26.5 sec (23.6-33.0)
[2021-08-20 09:00] VITALS: BP 161/103
[2021-08-20 09:50] LABS: Potassium 3.3 mmol/L (3.5-5.1)
[2021-08-20 09:57] LABS: Albumin 3.7 g/dL (3.4-5.0); BUN/Creatinine Ratio 12.5; Calcium 9.2 mg/dL (8.5-10.1); Magnesium 2.3 mg/dL (1.6-2.6); Phosphorus 1.9 mg/dL (2.5-4.90); Total Protein 9.1 g/dL (6.4-8.2)
[2021-08-20] MEDS: HALOPERIDOL LACTATE 5 MG/ML INJ VIAL IM PRN ×2 (10:20→22:01)
[2021-08-20] MEDS: FAMOTIDINE (10MG/ML) 2ML VL IV SCH (11:00)
[2021-08-20] MEDS ORDERED: HALOPERIDOL LACTATE 5 MG/ML INJ VIAL IM PRN (11:30)
[2021-08-20] MEDS ORDERED: POTASSIUM PHOSPHATE 44 MEQ in D5W 5% 250 ML IV ONE (11:45)
[2021-08-20 12:00] VITALS: BP 157/104
[2021-08-20] MEDS: BENAZEPRIL HCL 10 MG TAB PO SCH (12:26)
[2021-08-20] MEDS: POTASSIUM CHL 20 Meq TABLET PO SCH ×2 (12:27→22:00)
[2021-08-20] MEDS: METOPROLOL SUCCINATE XL 50 MG TAB PO SCH (12:27)
[2021-08-20] MEDS: MULTIPLE VITAMINS W/ MINERALS TAB PO SCH (12:27)
[2021-08-20] MEDS: ASPirin 81 mg TAB PO SCH (12:28)
[2021-08-20] MEDS: AZTREONAM 1GM INJ 1 GM in D5W 5% 50 ML IV SCH ×3 (14:00→23:22)
[2021-08-20] MEDS: THIAMINE 100mg/ml INJ (200mg/2ml VIAL) IV SCH (15:13)
[2021-08-20] MEDS ORDERED: FURO40TA4 PO (15:50)
[2021-08-20] MEDS ORDERED: GABA300C10 PO (15:55)
[2021-08-20 16:00] VITALS: BP 127/72
[2021-08-20] MEDS ORDERED: WARFARIN SODIUM 2.5 MG TAB PO ONE (17:00)
[2021-08-20] MEDS ORDERED: IPRATROPIUM BROM 0.5 MG/2.5ML INH SOL NEB PRN (19:30)
[2021-08-20 22:00] VITALS: BP 141/77
[2021-08-20] MEDS: ATORVASTATIN 20 MG TAB PO SCH (22:00)
[2021-08-21 05:00] VITALS: BP 123/72
[2021-08-21] MEDS: SPIRONOLACTONE 25 MG TAB PO SCH ×2 (06:00→19:38)
[2021-08-21] MEDS: CLINDAMYCIN 600MG IV 50 ML IV SCH ×3 (06:12→22:43)
[2021-08-21] MEDS: AZTREONAM 1GM INJ 1 GM in D5W 5% 50 ML IV SCH ×3 (06:16→22:42)
[2021-08-21] MEDS: FUROSEMIDE 40 MG/4 ML VIAL IV SCH (06:19)
[2021-08-21] MEDS: LORazepam 2MG/ML-1ML VIAL IV PRN ×2 (08:43→10:23)
[2021-08-21 09:00] VITALS: BP 124/87
[2021-08-21] MEDS: ASPirin 81 mg TAB PO SCH (10:00)
[2021-08-21] MEDS: BENAZEPRIL HCL 10 MG TAB PO SCH (10:00)
[2021-08-21] MEDS: MULTIPLE VITAMINS W/ MINERALS TAB PO SCH (10:00)
[2021-08-21] MEDS: BUDESONIDE (INHALATION) 0.5 MG/2 ML NEB NEB SCH ×2 (10:00→18:42)
[2021-08-21] MEDS: POTASSIUM CHL 20 Meq TABLET PO SCH (10:00)
[2021-08-21] MEDS: METOPROLOL SUCCINATE XL 50 MG TAB PO SCH (10:00)
[2021-08-21 10:02] LABS: Basophils # (auto) 0.1 10 ^3/uL (0-0.2); Eosinophils # (auto) 0.2 10 ^3/uL (0-0.8); Eosinophils % (auto) 1.5 % (0.0-7.0); Hematocrit 51.8 % (41.0-53.0); Hemoglobin 17.1 g/dL (13.5-17.5); Lymphocytes # (auto) 1.8 10 ^3/uL (0.4-5.4); Lymphocytes % (auto) 17.9 % (10.0-50.0); Mean Corpuscular Volume 87.8 fL (80.0-100.0); Monocytes # (auto) 1.5 10 ^3/uL (0-1.3); Monocytes % (auto) 14.5 % (0.0-12.0); Neutrophils # (auto) 6.7 10 ^3/uL (1.6-8.6); Neutrophils % (auto) 65.1 % (37.0-80.0); Nucleated Red Blood Cells % 0.2 %; Red Cell Distribution Width 18.1 % (11.8-14.3); White Blood Cell 10.2 10^3/uL (4.4-10.8)
[2021-08-21 10:09] LABS: Albumin 3.6 g/dL (3.4-5.0); Bilirubin, Direct 0.3 mg/dL (0-0.2); Magnesium 2.1 mg/dL (1.6-2.6); Potassium 3.1 mmol/L (3.5-5.1)
[2021-08-21 10:12] LABS: Bilirubin, Total 1.5 mg/dL (0.2-1.0); Total Protein 9.2 g/dL (6.4-8.2)
[2021-08-21 10:14] LABS: INR 1.11 (0.9-1.15); Partial Thromboplastin Time 27.3 sec (23.6-33.0)
[2021-08-21] MEDS: HALOPERIDOL LACTATE 5 MG/ML INJ VIAL IM PRN (10:23)
[2021-08-21] MEDS: THIAMINE 100mg/ml INJ (200mg/2ml VIAL) IV SCH (10:23)
[2021-08-21] MEDS: FAMOTIDINE (10MG/ML) 2ML VL IV SCH (10:23)
[2021-08-21 13:00] VITALS: BP 122/81
[2021-08-21] MEDS ORDERED: HALOPERIDOL LACTATE 5 MG/ML INJ VIAL IM PRN (13:15)
[2021-08-21] MEDS ORDERED: LORazepam 2MG/ML-1ML VIAL IV PRN (13:15)
[2021-08-21] MEDS ORDERED: LABETALOL HCL 5 MG/ML 4ML SYRINGE IV PRN (13:30)
[2021-08-21] MEDS: SODIUM CHLORIDE 0.9% 1,000 ML IV SCH ×2 (14:32→15:32)
[2021-08-21] MEDS: POTASSIUM CHL 10MEQ/50ML 50 ML IV SCH ×4 (15:40→20:00)
[2021-08-21 17:00] VITALS: BP 124/84
[2021-08-21] MEDS ORDERED: WARFARIN SODIUM 2.5 MG TAB PO ONE (17:00)
[2021-08-21] MEDS ORDERED: ACETAMINOPHEN 325 MG TAB PO PRN (22:45)
[2021-08-21 23:40] VITALS: BP 130/91
[2021-08-22 05:00] VITALS: BP 127/82
[2021-08-22] MEDS: AZTREONAM 1GM INJ 1 GM in D5W 5% 50 ML IV SCH ×3 (05:47→21:50)
[2021-08-22] MEDS: CLINDAMYCIN 600MG IV 50 ML IV SCH ×3 (05:47→21:50)
[2021-08-22 06:13] LABS: INR 1.16 (0.9-1.15); Partial Thromboplastin Time 26.5 sec (23.6-33.0)
[2021-08-22] MEDS: ALBUTEROL SULF 2.5 MG/0.5ML(0.5%) NEB SOLN NEB PRN (06:20)
[2021-08-22] MEDS: BUDESONIDE (INHALATION) 0.5 MG/2 ML NEB NEB SCH ×2 (06:20→22:00)
[2021-08-22 06:28] LABS: Albumin 3.4 g/dL (3.4-5.0); Basophils # (auto) 0.1 10 ^3/uL (0-0.2); Basophils % (auto) 0.8 % (0.0-2.0); Calcium 9.3 mg/dL (8.5-10.1); Eosinophils # (auto) 0.4 10 ^3/uL (0-0.8); Eosinophils % (auto) 3.9 % (0.0-7.0); Hematocrit 52.3 % (41.0-53.0); Hemoglobin 17.3 g/dL (13.5-17.5); Lymphocytes # (auto) 2.2 10 ^3/uL (0.4-5.4); Lymphocytes % (auto) 21.4 % (10.0-50.0); Mean Corpuscular Hemoglobin 29.1 pg (28.0-32.0); Mean Corpuscular Hgb Conc. 33.1 g/dL (32.0-36.0); Mean Corpuscular Volume 87.9 fL (80.0-100.0); Monocytes # (auto) 1.2 10 ^3/uL (0-1.3); Monocytes % (auto) 12.2 % (0.0-12.0); Neutrophils # (auto) 6.2 10 ^3/uL (1.6-8.6); Neutrophils % (auto) 61.7 % (37.0-80.0); Nucleated Red Blood Cells % 0.1 %; Potassium 3.3 mmol/L (3.5-5.1); Red Blood Cells 5.95 10^6/uL (4.5-5.90); Red Cell Distribution Width 17.9 % (11.8-14.3); White Blood Cell 10.1 10^3/uL (4.4-10.8)
[2021-08-22 06:33] LABS: Bilirubin, Total 1.1 mg/dL (0.2-1.0); Phosphorus 3.3 mg/dL (2.5-4.90); Total Protein 8.7 g/dL (6.4-8.2)
[2021-08-22] MEDS: THIAMINE 100mg/ml INJ (200mg/2ml VIAL) IV SCH (10:06)
[2021-08-22] MEDS: FUROSEMIDE 40 MG/4 ML VIAL IV SCH (10:09)
[2021-08-22] MEDS: MULTIPLE VITAMINS W/ MINERALS TAB PO SCH (10:09)
[2021-08-22] MEDS: BENAZEPRIL HCL 10 MG TAB PO SCH (10:09)
[2021-08-22] MEDS: FAMOTIDINE (10MG/ML) 2ML VL IV SCH (10:09)
[2021-08-22] MEDS: ASPirin 81 mg TAB PO SCH (10:09)
[2021-08-22] MEDS: METOPROLOL SUCCINATE XL 50 MG TAB PO SCH (10:10)
[2021-08-22] MEDS ORDERED: POTASSIUM EFFERVESENT TAB 25 MEQ PO ONE (10:15)
[2021-08-22] MEDS ORDERED: DOXY-286 PO (10:18)
[2021-08-22] MEDS ORDERED: WARFARIN SODIUM 10 MG TAB PO ONE (17:00)
[2021-08-22] MEDS: SPIRONOLACTONE 25 MG TAB PO SCH (18:00)
[2021-08-23] MEDS: AZTREONAM 1GM INJ 1 GM in D5W 5% 50 ML IV SCH (06:03)
[2021-08-23] MEDS: CLINDAMYCIN 600MG IV 50 ML IV SCH (06:04)
[2021-08-23 06:20] LABS: INR 1.5 (0.9-1.15); Partial Thromboplastin Time 28.1 sec (23.6-33.0)
[2021-08-23] MEDS: SPIRONOLACTONE 25 MG TAB PO SCH (06:20)
[2021-08-23] MEDS: THIAMINE 100mg/ml INJ (200mg/2ml VIAL) IV SCH (09:09)
[2021-08-23] MEDS: ASPirin 81 mg TAB PO SCH (09:10)
[2021-08-23] MEDS: FAMOTIDINE (10MG/ML) 2ML VL IV SCH (09:10)
[2021-08-23] MEDS: MULTIPLE VITAMINS W/ MINERALS TAB PO SCH (09:10)
[2021-08-23] MEDS: FUROSEMIDE 40 MG/4 ML VIAL IV SCH (09:11)
[2021-08-23] MEDS: BENAZEPRIL HCL 10 MG TAB PO SCH (09:11)
[2021-08-23] MEDS: METOPROLOL SUCCINATE XL 50 MG TAB PO SCH (09:11)
[2021-08-23] MEDS ORDERED: WARFARIN SODIUM 2 MG TAB PO ONE (17:00)
== END 2021-08-23 13:00 | disposition home health service (06) | DRG 871 ==
LOC: EDBD 11:10 → ER 11:22 → TELE 17:22 → TELE-CENTR 08-20 10:13
PROVIDERS: ADMIT Hospitalist; ATTEND Internal Medicine
DX: A41.9 Sepsis, unspecified organism (principal); J69.0 Pneumonitis due to inhalation of food and vomit; J96.01 Acute respiratory failure with hypoxia; G93.41 Metabolic encephalopathy; I42.0 Dilated cardiomyopathy; J44.0 Chronic obstructive pulmonary disease with (acute) lower respiratory infection; I16.9 Hypertensive crisis, unspecified; G40.901 Epilepsy, unspecified, not intractable, with status epilepticus; I11.0 Hypertensive heart disease with heart failure; E88.81 Metabolic syndrome and other insulin resistance; G93.89 Other specified disorders of brain; Z20.822 Contact with and (suspected) exposure to COVID-19; E87.6 Hypokalemia; I25.10 Atherosclerotic heart disease of native coronary artery without angina pectoris; E66.01 Morbid (severe) obesity due to excess calories; E78.5 Hyperlipidemia, unspecified; F19.10 Other psychoactive substance abuse, uncomplicated; F12.10 Cannabis abuse, uncomplicated; F15.90 Other stimulant use, unspecified, uncomplicated; F17.210 Nicotine dependence, cigarettes, uncomplicated; K21.9 Gastro-esophageal reflux disease without esophagitis; F41.9 Anxiety disorder, unspecified; Z79.01 Long term (current) use of anticoagulants; Z91.19 Patient's noncompliance with other medical treatment and regimen; Z68.35 Body mass index [BMI] 35.0-35.9, adult; Z79.899 Other long term (current) drug therapy; Z82.3 Family history of stroke; Z82.49 Family history of ischemic heart disease and other diseases of the circulatory system; Z83.3 Family history of diabetes mellitus; Z86.73 Personal history of transient ischemic attack (TIA), and cerebral infarction without residual deficits; Z87.442 Personal history of urinary calculi; Z90.49 Acquired absence of other specified parts of digestive tract
CPT/HCPCS: 36415; 70450; 71045; 80053; 80061; 80076; 80307; 81001; 82542; 82728; 83605; 83615; 83690; 83735; 83880; 84100; 84132; 84443; 84484; 84550; 85025; 85379; 85610; 85730; 87040; 87086; 87426; 93005; 94640; 95819; 96361; 96372; 96374; 96375; G0378; J3490; J7060

== ENCOUNTER 2023-03-02 08:35 | Inpatient (IN) | payer MEDICAID, MEDICARE ==
[~2023-03-02] VITALS: Ht 182.9 cm; Wt 114.0 kg
[~2023-03-02 08:35] MED LIST changes: +ALBU2TAB11 PO; -ALBU2TAB4 PO; +DOXY-286 PO; +GABA-1250 PO; -LISI20TA28 PO; +LISI20TA56 PO
[2023-03-02 08:49] LABS: Base Excess -3.6 mmol/L (-2.0-2.0)
[2023-03-02] MEDS ORDERED: SODIUM CHLORIDE 0.9% 1,000 ML IV ONE ×2 (09:00)
[2023-03-02] MEDS ORDERED: LORazepam 2MG/ML-1ML VIAL IV ONE (09:00)
[2023-03-02] MEDS ORDERED: PROMETHAZINE HCL 25 MG/ML 1ML IV ONE (09:00)
[2023-03-02] MEDS ORDERED: HYDROmorphone HCL 2 MG/ML VL/or syr IV ONE (09:00)
[2023-03-02 09:12] VITALS: TEMP 98
[2023-03-02 09:14] VITALS: PULSE 94; RESP 15; O2SAT 98
[2023-03-02 10:15] LABS: Basophils # (auto) 0 10 ^3/uL (0-0.2); Basophils % (auto) 0.7 % (0.0-2.0); Eosinophils # (auto) 0.3 10 ^3/uL (0-0.8); Hematocrit 47.2 % (41.0-53.0); Hemoglobin 15.5 g/dL (13.5-17.5); Lymphocytes % (auto) 13.2 % (10.0-50.0); Mean Corpuscular Hemoglobin 30.8 pg (28.0-32.0); Mean Corpuscular Hgb Conc. 32.9 g/dL (32.0-36.0); Mean Corpuscular Volume 93.6 fL (80.0-100.0); Monocytes # (auto) 0.4 10 ^3/uL (0-1.3); Monocytes % (auto) 4.8 % (0.0-12.0); Neutrophils # (auto) 5.6 10 ^3/uL (1.6-8.6); Neutrophils % (auto) 77.3 % (37.0-80.0); Nucleated Red Blood Cells % 0.3 %; Red Blood Cells 5.04 10^6/uL (4.5-5.90); Red Cell Distribution Width 15.8 % (11.8-14.3); White Blood Cell 7.3 10^3/uL (4.4-10.8)
[2023-03-02 11:08] LABS: Alanine Aminotransferase 38 U/L (7-40); Alkaline Phosphatase 76 U/L (46-116); Anion Gap 6.4 (5-15); Aspartate Aminotransferase 24 U/L (13-40); BUN/Creatinine Ratio 14.6 (10.0-20.0); Blood Urea Nitrogen 14 mg/dL (9-23); Calcium 8.6 mg/dL (8.5-10.1); Carbon Dioxide 26.6 mmol/L (20-30); Chloride 108 mmol/L (98-107); Glucose 116 mg/dL (74-106); Sodium 141 mmol/L (136-145)
[2023-03-02 11:09] LABS: Albumin 3.8 g/dL (3.2-4.8); Total Protein 6.7 g/dL (5.7-8.2)
[2023-03-02 11:10] LABS: Lactic Acid w/Reflex 2.7 mmol/L (0.4-2.0)
[2023-03-02 11:14] LABS: Bilirubin, Total 0.6 mg/dL (0.2-1.0)
[2023-03-02] MEDS ORDERED: ALBUTEROL SULF 2.5 MG/0.5ML(0.5%) NEB SOLN NEB PRN (13:45)
[2023-03-02] MEDS ORDERED: FUROSEMIDE 20 MG/2 ML VIAL IV ONE (13:45)
[2023-03-02] MEDS ORDERED: ACETAMINOPHEN 325 MG TAB PO PRN (13:45)
[2023-03-02] MEDS ORDERED: MORPHINE SULFATE INJ 2 MG/ml SYRG IV PRN (13:45)
[2023-03-02] MEDS ORDERED: NITROGLYCERIN 0.4 MG SL TAB SL PRN (13:45)
[2023-03-02 14:22] VITALS: BP 135/60; PULSE 91; RESP 18; O2SAT 99
[2023-03-02 14:29] LABS: Triglycerides 56 mg/dL (< 150)
[2023-03-02 14:30] LABS: LDL Cholesterol 63 mg/dL (< 100)
[2023-03-02 14:31] LABS: Cholesterol 102 mg/dL (< 200); HDL Cholesterol 29 mg/dL (40-59)
[2023-03-02 15:02] LABS: INR 1.02 (0.9-1.15); Prothrombin Time 10.7 sec (9.3-11.8)
[2023-03-02] MEDS ORDERED: HALOPERIDOL LACTATE 5 MG/ML INJ VIAL ONE (15:41)
[2023-03-02] MEDS ORDERED: HALOPERIDOL LACTATE 5 MG/ML INJ VIAL IM ONE (15:45)
[2023-03-02 20:12] LABS: Base Excess 3.4 mmol/L (-2.0-2.0)
[2023-03-02 20:13] VITALS: O2SAT 93
[2023-03-02 21:37] LABS: Lactic Acid w/Reflex 2.1 mmol/L (0.4-2.0)
[2023-03-02] MEDS: PANTOPRAZOLE 40 MG TAB PO SCH ×2 (22:00→22:40)
[2023-03-02] MEDS: CARVEDILOL 12.5 MG TAB PO SCH ×2 (22:00→22:39)
[2023-03-03 01:37] VITALS: PULSE 86; RESP 18; O2SAT 98
[2023-03-03 06:20] LABS: Basophils # (auto) 0.1 10 ^3/uL (0-0.2); Eosinophils # (auto) 0.1 10 ^3/uL (0-0.8); Eosinophils % (auto) 0.8 % (0.0-7.0); Hematocrit 47.3 % (41.0-53.0); Hemoglobin 15.8 g/dL (13.5-17.5); INR 1.14 (0.9-1.15); Lymphocytes # (auto) 1.7 10 ^3/uL (0.4-5.4); Lymphocytes % (auto) 18.5 % (10.0-50.0); Mean Corpuscular Hemoglobin 30.7 pg (28.0-32.0); Mean Corpuscular Hgb Conc. 33.5 g/dL (32.0-36.0); Mean Corpuscular Volume 91.7 fL (80.0-100.0); Monocytes # (auto) 0.8 10 ^3/uL (0-1.3); Monocytes % (auto) 8.9 % (0.0-12.0); Neutrophils # (auto) 6.5 10 ^3/uL (1.6-8.6); Neutrophils % (auto) 70.8 % (37.0-80.0); Partial Thromboplastin Time 28.3 SEC (24.5-34.5); Prothrombin Time 11.9 sec (9.3-11.8); Red Blood Cells 5.16 10^6/uL (4.5-5.90); Red Cell Distribution Width 15.8 % (11.8-14.3); White Blood Cell 9.1 10^3/uL (4.4-10.8)
[2023-03-03 06:44] LABS: Alanine Aminotransferase 34 U/L (7-40); Alkaline Phosphatase 72 U/L (46-116); Anion Gap 6.1 (5-15); Blood Urea Nitrogen 10 mg/dL (9-23); Calcium 8.9 mg/dL (8.7-10.4); Carbon Dioxide 25.9 mmol/L (20-30); Chloride 108 mmol/L (98-107); Glucose 84 mg/dL (74-106); Potassium 3.7 mmol/L (3.5-5.1); Sodium 140 mmol/L (136-145)
[2023-03-03 06:45] LABS: Albumin 4.1 g/dL (3.2-4.8); Aspartate Aminotransferase 21 U/L (13-40); Bilirubin, Total 1.2 mg/dL (0.2-1.0); Total Protein 7.5 g/dL (5.7-8.2)
[2023-03-03 06:47] VITALS: O2SAT 94
[2023-03-03] MEDS ORDERED: HALOPERIDOL LACTATE 5 MG/ML INJ VIAL IM ONE ×2 (07:45→08:30)
[2023-03-03] MEDS ORDERED: diphenhdrAMINE HCL 50 MG/1 ML VL IV ONE (08:30)
[2023-03-03] MEDS ORDERED: LORazepam 2MG/ML-1ML VIAL IV ONE (08:30)
[2023-03-03 09:25] VITALS: PULSE 77; RESP 17; O2SAT 94
[2023-03-03] MEDS ORDERED: FUROSEMIDE 20 MG/2 ML VIAL IV SCH (10:00)
[2023-03-03] MEDS ORDERED: ENOXAPARIN SOD 40 MG/0.4 ML SYRINGE SC SCH (10:00)
[2023-03-03] MEDS ORDERED: LORazepam 2MG/ML-1ML VIAL IV PRN (10:45)
[2023-03-03] MEDS ORDERED: HALOPERIDOL LACTATE 5 MG/ML INJ VIAL IM PRN (10:45)
[2023-03-03] MEDS: ASPirin-EC 81 mg tab PO SCH ×2 (11:02→11:12)
[2023-03-03] MEDS: PANTOPRAZOLE 40 MG TAB PO SCH ×2 (11:03→11:13)
[2023-03-03] MEDS: GABAPENTIN 300 MG CAP PO SCH ×2 (11:03→11:12)
[2023-03-03] MEDS: CARVEDILOL 12.5 MG TAB PO SCH ×2 (11:04→11:12)
[2023-03-03] MEDS: SPIRONOLACTONE 25 MG TAB PO SCH ×2 (11:04→11:12)
[2023-03-03] MEDS: LISINOPRIL 20 MG TAB PO SCH ×2 (11:04→11:13)
[2023-03-03 13:45] LABS: Urine Bacteria NONE SEEN /hpf (None Seen); Urine Blood 1+ /uL (Negative); Urine Clarity Clear (Clear); Urine Protein, UAD Negative (Negative); Urine Urobilinogen Normal (Negative); Urine WBC 2 /hpf (0 - 3); Urine pH 6.5 (5.0-8.0)
[2023-03-03 13:47] LABS: Urine Color Straw (Yellow)
[2023-03-03 13:56] LABS: Amphetamine Screen, Urine Neg (NEGATIVE); Benzodiazephine Screen, Urine Pos (NEGATIVE)
[2023-03-03 13:57] LABS: Barbiturate Scree,Urine Neg (NEGATIVE); Cannabinoid Screen, Urine Pos (NEGATIVE); Cocaine Screen, Urine Neg (NEGATIVE); Opiate Scree,Urine Neg (NEGATIVE); Phencyclidine Screen, Urine Neg (NEGATIVE)
[2023-03-03] MEDS ORDERED: WARFARIN SODIUM 5 MG TAB PO SCH (17:00)
[2023-03-03 18:20] VITALS: O2SAT 96
[2023-03-03 19:30] VITALS: PULSE 90; RESP 17; O2SAT 97
[2023-03-03 21:02] VITALS: BP 127/95; PULSE 77; RESP 13; O2SAT 95
== END 2023-03-03 21:10 | disposition home or self-care (01) | DRG 53 ==
LOC: ER 08:35 → EDBD 08:35 → TELE 13:41
PROVIDERS: ADMIT Nurse Practitioner Family; ATTEND Internal Medicine Geriatric Medicine
DX: G40.909 Epilepsy, unspecified, not intractable, without status epilepticus (principal); E87.20 Acidosis, unspecified; I50.9 Heart failure, unspecified; I11.0 Hypertensive heart disease with heart failure; I69.351 Hemiplegia and hemiparesis following cerebral infarction affecting right dominant side; E66.9 Obesity, unspecified; J44.9 Chronic obstructive pulmonary disease, unspecified; E78.5 Hyperlipidemia, unspecified; F41.9 Anxiety disorder, unspecified; F17.210 Nicotine dependence, cigarettes, uncomplicated; I25.10 Atherosclerotic heart disease of native coronary artery without angina pectoris; K21.9 Gastro-esophageal reflux disease without esophagitis; R47.01 Aphasia; W06.XXXA Fall from bed, initial encounter; Y93.89 Activity, other specified; I25.2 Old myocardial infarction; Z68.34 Body mass index [BMI] 34.0-34.9, adult; Y92.89 Other specified places as the place of occurrence of the external cause; Y99.8 Other external cause status; Z79.01 Long term (current) use of anticoagulants; Z79.82 Long term (current) use of aspirin; Z82.3 Family history of stroke; Z82.49 Family history of ischemic heart disease and other diseases of the circulatory system; Z83.3 Family history of diabetes mellitus; Z87.442 Personal history of urinary calculi; Z88.0 Allergy status to penicillin; Z90.49 Acquired absence of other specified parts of digestive tract; Z88.5 Allergy status to narcotic agent; Z88.8 Allergy status to other drugs, medicaments and biological substances
CPT/HCPCS: 36415; 36600; 70450; 71045; 80053; 80061; 80307; 81001; 82542; 82805; 83605; 84443; 84484; 85025; 85610; 85730; 87040; 93005; 96361; 96365; 96372; 96375; 99291; G0378; J7060

== ENCOUNTER 2023-11-11 22:40 | Emergency (ER) | payer MEDICARE, MEDICAID ==
[~2023-11-11] VITALS: Ht 172.7 cm; Wt 113.0 kg
[~2023-11-11 22:40] MED LIST changes: -SUCR1TAB22 PO; +SUCR1TAB31 PO
[2023-11-11 22:59] VITALS: BP 108/62; PULSE 57; RESP 16; O2SAT 97
== END 2023-11-12 03:06 | disposition left against medical advice (07) ==
LOC: ER 22:40
DX: L02.416 Cutaneous abscess of left lower limb (principal); Z53.21 Procedure and treatment not carried out due to patient leaving prior to being seen by health care provider

== ENCOUNTER 2024-07-09 08:50 | Inpatient (IN) | payer OTHER, MEDICAID ==
[~2024-07-09] VITALS: Ht 165.1 cm; Wt 105.2 kg
--- NOTE | 2024-07-09 10:48 | ED.PDOC ---
History of Present Illness HPI Comments 48 year old male presents to the ED with a chief complaint of wound check. Patient's day care aide states the patient has been experiencing wounds on bilateral inner thighs for the past 3 weeks. Wounds are painful and bleed occasionally. He has not been able to see PCP. PMHx HTN, HLD, seizure, anxiety, CVA, ID, COPD, CHF. No other symptoms or modifying factors present at this time. Chief Complaint: Wound Check Time Seen by MD: 10:26 Primary Care Provider: MARY Reviewed Notes: Medications, Allergies Allergies: Coded Allergies: Penicillins (Verified Allergy, Severe, 03/02/23) Ketorolac Tromethamine (Verified Allergy, Unknown, 03/02/23) Morphine (Verified Allergy, Unknown, 03/02/23) Tramadol (Verified Allergy, Unknown, 03/02/23) Home Meds Active Scripts Doxycycline Hyclate (DOXYCYCLINE HYCLATE) 100 Mg Tab, 1 TAB PO BID for 5 Days, #10 TAB Prov:FEROZ ALVARADO MD 08/22/21 Reported Medications Gabapentin (Gabapentin) 300 Mg Cap, 300 MG PO DAILY, MG 08/20/21 Furosemide (Furosemide) 40 Mg Tab, 1 TAB PO DAILY, TAB 08/20/21 Alprazolam (Xanax) 0.25 Mg Tb, 1 TAB PO DAILY, #30 TAB 05/04/19 Pantoprazole Sodium Sesquihydr (Protonix) 40 Mg Tab, 40 MG PO DAILY, #30 TAB 05/04/19 Oxycodone HCl (Oxycodone HCl ER) 30 Mg Tab, 30 MG PO QIDPRN, TAB 05/04/19 Carvedilol (Carvedilol) 12.5 Mg Tab, 1 TAB PO BID, #180 TAB 1 Refill 11/12/17 Lisinopril (Lisinopril) 20 Mg Tab, 20 MG PO DAILY for 30 Days, MG 11/12/17 Warfarin Sodium (Coumadin) 5 Mg Tab, 1 TAB PO DAILY, #90 TAB 1 Refill 11/12/17 Spironolactone (Spironolactone) 25 Mg Tab, 1 TAB PO DAILY, #90 TAB 1 Refill 11/12/17 Aspirin (Aspir-Low) 81 Mg Tab, 81 MG PO DAILY for 30 Days, MG 11/12/17 Albuterol Sulfate (Albuterol Sulfate) 2 Mg Tab, 2 MG PO Q4HPRN PRN for SHORTNESS OF BREATH, MG 11/12/17 Enoxaparin Sodium (Lovenox) 100 Mg/1 Ml Inj, 120 MG SC DAILY, INJ 11/12/17 Oxycodone Hcl (OXYCODONE HCL) 5 Mg Tb, 30 MG PO [id number] PRN for MODERATE PAIN 11/12/17 Pantoprazole Sodium Sesquihydr (Protonix) 40 Mg Tab, 40 MG PO BID, #30 TAB 11/12/17 Alprazolam (Xanax) 2 Mg Tab, 2 MG PO BID, TAB 06/14/16 Sucralfate (CARAFATE) 1 Gm Tab, 1 GM PO TID, TAB 06/02/16 Information Source: Patient, Relative Mode of Arrival: Ambulatory Severity: Moderate Timing: Weeks Duration: Since onset Prehospital treatment: None Past Medical History PAST MEDICAL HISTORY: Anxiety, CHF, COPD, CVA, GERD, High Lipids, HTN, Kidney Stones, [place], Seizures Surgical History: Cholecystectomy Family History Family History: Reviewed,noncontributory to illness Social History Smoker: Cigarettes Alcohol: Occasionally Drugs: Marijuana, Methamphetamine Lives In: Home Constitutional: denies: chills, diaphoresis, fatigue, fever, malaise, sweats, weakness, others EENTM: denies: blurred vision, double vision, ear bleeding, ear discharge, ear drainage, ear pain, ear ringing, eye pain, eye redness, hearing loss, mouth pain, mouth swelling, nasal discharge, nose bleeding, nose congestion, nose pain, photophobia, tearing, throat pain, throat swelling, voice changes, others Respiratory: denies: cough, hemoptysis, orthopnea, SOB at rest, shortness of breath, SOB with excertion, stridor, wheezing, others Cardiovascular: denies: chest pain, dizzy spells, diaphoresis, Dyspnea on exertion, edema, irregular heart beat, left arm pain, lightheadedness, palpitations, PND, syncope, others Gastrointestinal: denies: abdomen distended, abdominal pain, blood streaked bowels, constipated, diarrhea, dysphagia, difficulty swallowing, hematemesis, melena, nausea, poor appetite, poor fluid intake, rectal bleeding, rectal pain, vomiting, others Genitourinary: denies: burning, dysuria, flank pain, frequency, hematuria, incontinence, penile discharge, penile sore, pain, testicle pain, testicle swelling, urgency, others Neurological: denies: dizziness, fainting, headache, left sided numbness, left sided weakness, numbness, paresthesia, pre-existing deficit, right sided numbness, right sided weakness, seizure, speech problems, tingling, tremors, weakness, others Musculoskeletal: denies: back pain, gout, joint pain, joint swelling, muscle pain, muscle stiffness, neck pain, others Integumetry: reports: dryness, wounds; denies: bruises, change in color, change in hair/nails, laceration, lesions, lumps, rash, others Allergic/Immunocompromised: denies: Difficulty Healing, Frequent Infections, Hives, Itching, others Hematologic/Lymphatic: denies: anemia, blood clots, easy bleeding, easy bruising, swollen glands, others Endocrine: denies: excessive hunger, excessive sweating, excessive thirst, excessive urination, flushing, intolerance to cold, intolerance to heat, unexplained weight gain, unexplained weight loss, others Psychiatric: denies: anxiety, bipolar disorder, depression, hopeless, panic disorder, schizophrenia, sleepless, suicidal, others All Other Systems: Reviewed and Negative Physical Exam General Appearance: Moderate Distress HEENT: Normal ENT Inspection, Pharynx Normal, TMs Normal Neck: Full Range of Motion, Non-Tender, Normal, Normal Inspection Respiratory: Chest Non-Tender, Lungs Clear, No Accessory Muscle Use, No R espiratory Distress, Normal Breath Sounds Cardiovascular: No Edema, No JVD, No Murmur, No Gallop, Normal Peripheral Pulses, Regular Rate/Rhythm Breast Exam: Deferred Gastrointestinal: No Organomegaly, Non Tender, No Pulsatile Mass, Normal Bowel Sounds, Soft Genitalia: Deferred Pelvic: Deferred Rectal: Deferred Extremities: No calf tenderness, Normal capillary refill, Normal inspection, Normal range of motion, Non-tender, No pedal edema Musculoskeletal : Apperance: Normal Neurologic: Alert Cerebellar Function: NOT DONE Reflexes: NOT DONE Skin: Wounds (Bilateral thigh) Peripheral Pulses: 3+ Radial (R), 3+ Radial (L) Lymphatic: No Adenopathy Was a procedure done? Was a procedure done?: No Differential Dx Considerations may include: Cellulitis Electrolyte imbalance X-Ray, Labs, Meds, VS Vital Signs Date Time Temp Pulse Resp B/P (MAP) Pulse Ox O2 Delivery O2 Flow Rate FiO2 07/09/24 13:45 100 18 147/97 (114) 07/09/24 09:29 83 18 96 Room Air 07/09/24 09:29 97.7 83 18 140/118 (125) 96 97.7 07/09/24 08:59 97.7 83 18 140/118 (125) 96 Lab Test 07/09/24 11:46 Range/Units White Blood Count 6.7 4.4-10.8 10^3/uL Red Blood Count 5.55 4.5-5.90 10^6/uL Hemoglobin 17.5 13.5-17.5 g/dL Hematocrit 51.7 41.0-53.0 % Mean Corpuscular Volume 93.2 80.0-100.0 fL Mean Corpuscular Hemoglobin 31.6 28.0-32.0 pg Mean Corpuscular Hemoglobin Concent 33.9 32.0-36.0 g/dL Red Cell Distribution Width 14.3 11.8-14.3 % Platelet Count 278 140-450 10^3/uL Mean Platelet Volume 7.9 6.9-10.8 fL Neutrophils (%) (Auto) 64.4 37.0-80.0 % Lymphocytes (%) (Auto) 23.2 10.0-50.0 % Monocytes (%) (Auto) 7.4 0.0-12.0 % Eosinophils (%) (Auto) 2.9 0.0-7.0 % Basophils (%) (Auto) 2.1 H 0.0-2.0 % Neutrophils # (Auto) 4.3 1.6-8.6 10 ^3/uL Lymphocytes # (Auto) 1.6 0.4-5.4 10 ^3/uL Monocytes # (Auto) 0.5 0-1.3 10 ^3/uL Eosinophils # (Auto) 0.2 0-0.8 10 ^3/uL Basophils # (Auto) 0.1 0-0.2 10 ^3/uL Nucleated Red Blood Cells 0.1 % Sodium Level 140 136-145 mmol/L Potassium Level 3.6 3.5-5.1 mmol/L Chloride Level 109 H 98-107 mmol/L Carbon Dioxide Level 26 20-31 mmol/L Anion Gap 5 5-15 Blood Urea Nitrogen 11 9-23 mg/dL Creatinine 1.02 0.700-1.30 mg/dL Glomerular Filtration Rate Calc 91 >90 mL/min BUN/Creatinine Ratio 10.8 10.0-20.0 Serum Glucose 80 74-106 mg/dL Calcium Level 10.1 8.7-10.4 mg/dL Current Medications Medications (Trade) Dose Ordered Sig/Aylin Route Start Time Stop Time Status Last Admin Clindamycin Phosphate 50 ml @ 50 mls/hr ONCE ONCE IV 07/09/24 11:45 07/09/24 12:44 DC 07/09/24 11:45 Patient alert. Has cellulitis with keloid formation of bilateral thighs. Wound started possibly after rubbing against each leg. Vitals stable. Explained to the patient that he will need intravenous antibiotics pain Was given Rocephin. Was given clindamycin. Surgical consultation for possible debridement. Cellulitis. Continue cardiac monitoring. 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 Electronically submitted by Olive Garcia ([email or web address]). I personally scribed for YAIR SNIDER MD ([email or web address]) on 07/09/24 at 15:02. Electronically submitted by Olive Garcia ([email or web address]). YAIR SNIDER MD Jul 09, 2024 10:48
[2024-07-09] MEDS: CLINDAMYCIN 600MG IV 50 ML IV ONE (11:45)
[2024-07-09] MEDS: cefTRIAXone 1GM/50ML D5W 50 ML IV ONE (11:45)
[2024-07-09 12:01] LABS: Basophils # (auto) 0.1 10 ^3/uL (0-0.2); Basophils % (auto) 2.1 % (0.0-2.0); Eosinophils # (auto) 0.2 10 ^3/uL (0-0.8); Eosinophils % (auto) 2.9 % (0.0-7.0); Hematocrit 51.7 % (41.0-53.0); Hemoglobin 17.5 g/dL (13.5-17.5); Lymphocytes # (auto) 1.6 10 ^3/uL (0.4-5.4); Lymphocytes % (auto) 23.2 % (10.0-50.0); Mean Corpuscular Hemoglobin 31.6 pg (28.0-32.0); Mean Corpuscular Hgb Conc. 33.9 g/dL (32.0-36.0); Mean Corpuscular Volume 93.2 fL (80.0-100.0); Monocytes # (auto) 0.5 10 ^3/uL (0-1.3); Monocytes % (auto) 7.4 % (0.0-12.0); Neutrophils # (auto) 4.3 10 ^3/uL (1.6-8.6); Neutrophils % (auto) 64.4 % (37.0-80.0); Nucleated Red Blood Cells % 0.1 %; Platelet Count (auto) 278 10^3/uL (140-450); Red Blood Cells 5.55 10^6/uL (4.5-5.90); Red Cell Distribution Width 14.3 % (11.8-14.3); White Blood Cell 6.7 10^3/uL (4.4-10.8)
[2024-07-09 12:12] LABS: Anion Gap 5 (5-15); Carbon Dioxide 26 mmol/L (20-31); Potassium 3.6 mmol/L (3.5-5.1); Sodium 140 mmol/L (136-145)
[2024-07-09 12:13] LABS: Calcium 10.1 mg/dL (8.7-10.4)
[2024-07-09 12:18] LABS: BUN/Creatinine Ratio 10.8 (10.0-20.0); Blood Urea Nitrogen 11 mg/dL (9-23); Glucose 80 mg/dL (74-106)
[2024-07-09 12:19] LABS: Chloride 109 mmol/L (98-107)
[2024-07-09 15:35] VITALS: BP 148/97
[2024-07-09 17:51] VITALS: PULSE 66; RESP 17; TEMP 97.9; O2SAT 100
[2024-07-09] MEDS ORDERED: HYDROcodone-ACET 5/325MG TAB PO PRN (19:00)
[2024-07-09] MEDS ORDERED: ONDANSETRON HCL 4 MG/2 ML VIAL IV PRN (19:00)
[2024-07-09] MEDS ORDERED: MORPHINE SULFATE INJ 2 MG/ml SYRG IV PRN (19:00)
[2024-07-09] MEDS ORDERED: NITROGLYCERIN 0.4 MG SL TAB SL PRN (19:00)
[2024-07-09] MEDS ORDERED: ACETAMINOPHEN 325 MG TAB PO PRN (19:00)
[2024-07-09] MEDS ORDERED: TEMAZEPAM 15 MG CAP PO PRN (19:00)
--- NOTE | 2024-07-09 20:54 | DVHHP2 ---
Review of Systems Allergies: Coded Allergies: Penicillins (Verified Allergy, Severe, 03/02/23) Ketorolac Tromethamine (Verified Allergy, Unknown, 03/02/23) Morphine (Verified Allergy, Unknown, 03/02/23) Tramadol (Verified Allergy, Unknown, 03/02/23) Exam Vital Signs Vital Signs Date Time Temp Pulse Resp B/P (MAP) Pulse Ox O2 Delivery O2 Flow Rate FiO2 07/09/24 17:51 97.9 66 17 100 97.9 07/09/24 09:29 Room Air Labs/Xrays Labs Test 07/09/24 19:31 07/09/24 11:46 Range/Units Lactic Acid Level 1.2 0.4-2.0 mmol/L White Blood Count 6.7 4.4-10.8 10^3/uL Red Blood Count 5.55 4.5-5.90 10^6/uL Hemoglobin 17.5 13.5-17.5 g/dL Hematocrit 51.7 41.0-53.0 % Mean Corpuscular Volume 93.2 80.0-100.0 fL Mean Corpuscular Hemoglobin 31.6 28.0-32.0 pg Mean Corpuscular Hemoglobin Concent 33.9 32.0-36.0 g/dL Red Cell Distribution Width 14.3 11.8-14.3 % Platelet Count 278 140-450 10^3/uL Mean Platelet Volume 7.9 6.9-10.8 fL Neutrophils (%) (Auto) 64.4 37.0-80.0 % Lymphocytes (%) (Auto) 23.2 10.0-50.0 % Monocytes (%) (Auto) 7.4 0.0-12.0 % Eosinophils (%) (Auto) 2.9 0.0-7.0 % Basophils (%) (Auto) 2.1 H 0.0-2.0 % Neutrophils # (Auto) 4.3 1.6-8.6 10 ^3/uL Lymphocytes # (Auto) 1.6 0.4-5.4 10 ^3/uL Monocytes # (Auto) 0.5 0-1.3 10 ^3/uL Eosinophils # (Auto) 0.2 0-0.8 10 ^3/uL Basophils # (Auto) 0.1 0-0.2 10 ^3/uL Nucleated Red Blood Cells 0.1 % Sodium Level 140 136-145 mmol/L Potassium Level 3.6 3.5-5.1 mmol/L Chloride Level 109 H 98-107 mmol/L Carbon Dioxide Level 26 20-31 mmol/L Anion Gap 5 5-15 Blood Urea Nitrogen 11 9-23 mg/dL Creatinine 1.02 0.700-1.30 mg/dL Glomerular Filtration Rate Calc 91 >90 mL/min BUN/Creatinine Ratio 10.8 10.0-20.0 Serum Glucose 80 74-106 mg/dL Calcium Level 10.1 8.7-10.4 mg/dL Assessment/Plan My Orders Orders - BRE WINN Procedure Category Date Status Time Admit ADMIT 07/09/24 Transmitted 18:59 Oxygen By Nasal RT 07/09/24 Transmitted Cannula 18:59 BRE WINN Jul 09, 2024 20:54
--- NOTE | 2024-07-09 20:59 | DVHHP2 ---
History of Present Illness Reason for Visit: Infection History of Present Illness 48 year presents for possible infection to right inner thigh. Patient reports noticing redness to right for the past two weeks has become worse over the past three days. Denies fever or chills. Denies purulent discharge. No other complaints reported. Past Medical History Congestive heart failure, COPD, hypertension CVA, mi, seizures Past Surgical History Cholecystectomy Family History Noncontributory Smoke: <1 pack per day ALCOHOL: occassional Drugs: Marijuana, Other (Methamphetamine) Lives: Alone Review of Systems Review of Systems Review of systems currently negative otherwise addressed in HPI. Allergies: Coded Allergies: Penicillins (Verified Allergy, Severe, 03/02/23) Ketorolac Tromethamine (Verified Allergy, Unknown, 03/02/23) Morphine (Verified Allergy, Unknown, 03/02/23) Tramadol (Verified Allergy, Unknown, 03/02/23) Exam Vital Signs Vital Signs Date Time Temp Pulse Resp B/P (MAP) Pulse Ox O2 Delivery O2 Flow Rate FiO2 07/09/24 17:51 97.9 66 17 100 97.9 07/09/24 09:29 Room Air Exam Gen: 48-year-old mild distress, morbidly obese Skin: Warm, dry, normal color and texture, no rash. HEENT: Normocephalic atraumatic, mucous membranes moist and pink. Neck: Cervical and supraclavicular nodes normal without enlargement, trachea is midline, thyroid gland is normal without masses. Pulmonary: Clear to auscultation and percussion bilaterally. Cardiac: Regular rate and rhythm. No murmur Abdomen: Soft, nontender, nondistended, bowel sounds present all 4 quadrants, no guarding, no rigidity, no organomegaly. Extremities: No cyanosis, clubbing, right inner thigh cellulitis Neuro: Cranial nerves II through XII grossly intact, normal affect and speech, no focal motor deficits. Labs/Xrays Labs Test 07/09/24 19:31 07/09/24 11:46 Range/Units Lactic Acid Level 1.2 0.4-2.0 mmol/L White Blood Count 6.7 4.4-10.8 10^3/uL Red Blood Count 5.55 4.5-5.90 10^6/uL Hemoglobin 17.5 13.5-17.5 g/dL Hematocrit 51.7 41.0-53.0 % Mean Corpuscular Volume 93.2 80.0-100.0 fL Mean Corpuscular Hemoglobin 31.6 28.0-32.0 pg Mean Corpuscular Hemoglobin Concent 33.9 32.0-36.0 g/dL Red Cell Distribution Width 14.3 11.8-14.3 % Platelet Count 278 140-450 10^3/uL Mean Platelet Volume 7.9 6.9-10.8 fL Neutrophils (%) (Auto) 64.4 37.0-80.0 % Lymphocytes (%) (Auto) 23.2 10.0-50.0 % Monocytes (%) (Auto) 7.4 0.0-12.0 % Eosinophils (%) (Auto) 2.9 0.0-7.0 % Basophils (%) (Auto) 2.1 H 0.0-2.0 % Neutrophils # (Auto) 4.3 1.6-8.6 10 ^3/uL Lymphocytes # (Auto) 1.6 0.4-5.4 10 ^3/uL Monocytes # (Auto) 0.5 0-1.3 10 ^3/uL Eosinophils # (Auto) 0.2 0-0.8 10 ^3/uL Basophils # (Auto) 0.1 0-0.2 10 ^3/uL Nucleated Red Blood Cells 0.1 % Sodium Level 140 136-145 mmol/L Potassium Level 3.6 3.5-5.1 mmol/L Chloride Level 109 H 98-107 mmol/L Carbon Dioxide Level 26 20-31 mmol/L Anion Gap 5 5-15 Blood Urea Nitrogen 11 9-23 mg/dL Creatinine 1.02 0.700-1.30 mg/dL Glomerular Filtration Rate Calc 91 >90 mL/min BUN/Creatinine Ratio 10.8 10.0-20.0 Serum Glucose 80 74-106 mg/dL Calcium Level 10.1 8.7-10.4 mg/dL Assessment/Plan Assessment/Plan Assessment Right inner thigh cellulitis Hypertension COPD Congestive heart failure Morbid obesity Plan admit the patient to [facility] to the hospitalist Clindamycin IV Wound culture pending Resume home medications Continue treatment per orders. Plan discussed with: Patient My Orders Orders - BRE WINN AGACNP Procedure Category Date Status Time Admit ADMIT 07/09/24 Transmitted 18:59 Oxygen By Nasal RT 1/5/25 Transmitted Cannula 18:59 Date of Service: Jul 09, 2024 Billing Provider: BRE WINN Common Visit Codes: [id number] INP/OBS CARE (MOD) BRE WINN Jul 09, 2024 20:59
[2024-07-09] MEDS ORDERED: GABAPENTIN 300 MG CAP PO SCH (22:00)
[2024-07-09] MEDS ORDERED: CARVEDILOL 3.125 MG TAB PO SCH (22:00)
[2024-07-10] MEDS ORDERED: LISINOPRIL 20 MG TAB PO SCH (10:00)
[2024-07-10] MEDS ORDERED: FUROSEMIDE 40 MG TAB PO SCH (10:00)
== END 2024-07-09 20:27 | disposition left against medical advice (07) | DRG 603 ==
LOC: ER 08:50 → OVERFLOW 18:59
PROVIDERS: ADMIT Nurse Practitioner; ATTEND Nurse Practitioner
DX: L03.115 Cellulitis of right lower limb (principal); I11.0 Hypertensive heart disease with heart failure; I50.9 Heart failure, unspecified; E78.5 Hyperlipidemia, unspecified; F41.9 Anxiety disorder, unspecified; J44.9 Chronic obstructive pulmonary disease, unspecified; F17.210 Nicotine dependence, cigarettes, uncomplicated; K21.9 Gastro-esophageal reflux disease without esophagitis; E66.01 Morbid (severe) obesity due to excess calories; Z53.29 Procedure and treatment not carried out because of patient's decision for other reasons; Z68.38 Body mass index [BMI] 38.0-38.9, adult; Z86.73 Personal history of transient ischemic attack (TIA), and cerebral infarction without residual deficits; Z88.0 Allergy status to penicillin; Z88.5 Allergy status to narcotic agent; Z90.49 Acquired absence of other specified parts of digestive tract; Z87.442 Personal history of urinary calculi
CPT/HCPCS: 36415; 80048; 83605; 85025; 87040; 96365; 96368; G0378; J3490

== ENCOUNTER 2024-07-22 20:06 | Emergency (ER) | payer OTHER, MEDICAID ==
[~2024-07-22] VITALS: Ht 165.1 cm; Wt 107.9 kg
--- NOTE | 2024-07-22 20:55 | ED.PDOC ---
History of Present Illness(SKN HPI Comments PT C/O BILATERAL MEDIAL LEG WOUNDS/MACERATION FOR 2 MONTHS. HAS NOT BEEN SEEN BY PCP. DENIES ANY CAUSE SPECIFICALLY, BUT PT HAS DEFICITS FROM CVA Chief Complaint: Wound Check Time Seen by MD: 20:11 Primary Care Provider: MARY History of Present Illness: Nurses Notes, Medications, Allergies Allergies: Coded Allergies: Penicillins (Verified Allergy, Severe, 03/02/23) Ketorolac Tromethamine (Verified Allergy, Unknown, 03/02/23) Morphine (Verified Allergy, Unknown, 03/02/23) Tramadol (Verified Allergy, Unknown, 03/02/23) Home Meds Active Scripts Clotrimazole W/ Betamethasone (Clotrimazole/Betamethason 1-0.05 %) 1 Cre Cre, 1 CRE EX BID for 10 Days, #15 GRAMS APPLY THIN LAYER TO AFFECTED AREA TWICE DAILY TIMES 10 DAYS Prov:LILIAN LE 07/22/24 Doxycycline Hyclate (DOXYCYCLINE HYCLATE) 100 Mg Tab, 1 TAB PO BID for 5 Days, #10 TAB Prov:FEROZ ALVARADO MD 08/22/21 Reported Medications Gabapentin (Gabapentin) 300 Mg Cap, 300 MG PO DAILY, MG 08/20/21 Furosemide (Furosemide) 40 Mg Tab, 1 TAB PO DAILY, TAB 08/20/21 Alprazolam (Xanax) 0.25 Mg Tb, 1 TAB PO DAILY, #30 TAB 05/04/19 Pantoprazole Sodium Sesquihydr (Protonix) 40 Mg Tab, 40 MG PO DAILY, #30 TAB 05/04/19 Oxycodone HCl (Oxycodone HCl ER) 30 Mg Tab, 30 MG PO QIDPRN, TAB 05/04/19 Carvedilol (Carvedilol) 12.5 Mg Tab, 1 TAB PO BID, #180 TAB 1 Refill 11/12/17 Lisinopril (Lisinopril) 20 Mg Tab, 20 MG PO DAILY for 30 Days, MG 11/12/17 Warfarin Sodium (Coumadin) 5 Mg Tab, 1 TAB PO DAILY, #90 TAB 1 Refill 11/12/17 Spironolactone (Spironolactone) 25 Mg Tab, 1 TAB PO DAILY, #90 TAB 1 Refill 11/12/17 Aspirin (Aspir-Low) 81 Mg Tab, 81 MG PO DAILY for 30 Days, MG 11/12/17 Albuterol Sulfate (Albuterol Sulfate) 2 Mg Tab, 2 MG PO Q4HPRN PRN for SHORTNESS OF BREATH, MG 11/12/17 Enoxaparin Sodium (Lovenox) 100 Mg/1 Ml Inj, 120 MG SC DAILY, INJ 11/12/17 Oxycodone Hcl (OXYCODONE HCL) 5 Mg Tb, 30 MG PO [id number] PRN for MODERATE PAIN 11/12/17 Pantoprazole Sodium Sesquihydr (Protonix) 40 Mg Tab, 40 MG PO BID, #30 TAB 11/12/17 Alprazolam (Xanax) 2 Mg Tab, 2 MG PO BID, TAB 06/14/16 Sucralfate (CARAFATE) 1 Gm Tab, 1 GM PO TID, TAB 06/02/16 Mode of Arrival: Ambulatory Past Medical History PAST MEDICAL HISTORY: Anxiety, CHF, COPD, CVA, GERD, High Lipids, HTN, Kidney Stones, [place], Seizures Surgical History: Cholecystectomy Family History Family History: Reviewed,noncontributory to illness Social History Smoker: Cigarettes Alcohol: Occasionally Drugs: Marijuana, Methamphetamine Lives In: Home Constitutional: denies: chills, diaphoresis, fatigue, fever, malaise, sweats, weakness, others EENTM: denies: blurred vision, double vision, ear bleeding, ear discharge, ear drainage, ear pain, ear ringing, eye pain, eye redness, hearing loss, mouth pain, mouth swelling, nasal discharge, nose bleeding, nose congestion, nose pain, photophobia, tearing, throat pain, throat swelling, voice changes, others Respiratory: denies: cough, hemoptysis, orthopnea, SOB at rest, shortness of breath, SOB with excertion, stridor, wheezing, others Cardiovascular: denies: chest pain, dizzy spells, diaphoresis, Dyspnea on exe rtion, edema, irregular heart beat, left arm pain, lightheadedness, palpitations, PND, syncope, others Gastrointestinal: denies: abdomen distended, abdominal pain, blood streaked bowels, constipated, diarrhea, dysphagia, difficulty swallowing, hematemesis, melena, nausea, poor appetite, poor fluid intake, rectal bleeding, rectal pain, vomiting, others Genitourinary: denies: burning, dysuria, flank pain, frequency, hematuria, incontinence, penile discharge, penile sore, pain, testicle pain, testicle swelling, urgency, others Neurological: denies: dizziness, fainting, headache, left sided numbness, left sided weakness, numbness, paresthesia, pre-existing deficit, right sided numbness, right sided weakness, seizure, speech problems, tingling, tremors, weakness, others Musculoskeletal: denies: back pain, gout, joint pain, joint swelling, muscle pain, muscle stiffness, neck pain, others Integumetry: reports: rash (BILATERAL THIGHS); denies: bruises, change in color, change in hair/nails, dryness, laceration, lesions, lumps, wounds, others Allergic/Immunocompromised: denies: Difficulty Healing, Frequent Infections, Hives, Itching, others Hematologic/Lymphatic: denies: anemia, blood clots, easy bleeding, easy bruising, swollen glands, others Endocrine: denies: excessive hunger, excessive sweating, excessive thirst, excessive urination, flushing, intolerance to cold, intolerance to heat, unexplained weight gain, unexplained weight loss, others Psychiatric: denies: anxiety, bipolar disorder, depression, hopeless, panic disorder, schizophrenia, sleepless, suicidal, others Physical Exam General Appearance: No Apparent Distress, Normal HEENT: Pharynx Normal Neck: Full Range of Motion, Non-Tender Respiratory: Chest Non-Tender, Lungs Clear, No Respiratory Distress, Normal Breath Sounds Cardiovascular: No Edema, No JVD, No Murmur, No Gallop, Normal Peripheral Pulses, Regular Rate/Rhythm Breast Exam: Deferred Gastrointestinal: No Organomegaly, Non Tender, No Pulsatile Mass, Normal Bowel Sounds, Soft Genitalia: Deferred Pelvic: Deferred Rectal: Deferred Extremities: Normal capillary refill, Normal inspection, Normal range of motion, Non-tender, No pedal edema Musculoskeletal : Apperance: Normal Neurologic: Alert, internet assessor II-XII nml as Tested, No Motor Deficits, Normal Affect, Normal Mood, No Sensory Deficits Cerebellar Function: Normal Reflexes: Normal Skin: Dry, Normal Color, Rash (ERYTHEMIC MACULAR RASH NOTED PROXIMAL INNER THIGHS WITHOUT EXCORIATIONS, LESIONS, DRAINAGE OR STREAKING), Warm Lymphatic: No Adenopathy Was a procedure done? Was a procedure done?: No Differential Diagnosis (INTG) Differential Diagnosis: Abrasion, Cellulitis Differential Diagnosis: Tinea, Urticaria X-Ray, Labs, Meds, VS Vital Signs Date Time Temp Pulse Resp B/P (MAP) Pulse Ox O2 Delivery O2 Flow Rate FiO2 07/22/24 22:18 98.4 75 19 166/107 (126) 98 98.4 07/22/24 22:18 75 19 98 Room Air 07/22/24 20:30 98.4 78 18 159/109 (126) 98 Lab Test 07/22/24 21:24 Range/Units White Blood Count 5.9 4.4-10.8 10^3/uL Red Blood Count 5.42 4.5-5.90 10^6/uL Hemoglobin 17.0 13.5-17.5 g/dL Hematocrit 51.4 41.0-53.0 % Mean Corpuscular Volume 94.8 80.0-100.0 fL Mean Corpuscular Hemoglobin 31.3 28.0-32.0 pg Mean Corpuscular Hemoglobin Concent 33.1 32.0-36.0 g/dL Red Cell Distribution Width 14.8 H 11.8-14.3 % Platelet Count 213 140-450 10^3/uL Mean Platelet Volume 7.9 6.9-10.8 fL Neutrophils (%) (Auto) 46.1 37.0-80.0 % Lymphocytes (%) (Auto) 39.3 10.0-50.0 % Monocytes (%) (Auto) 10.5 0.0-12.0 % Eosinophils (%) (Auto) 3.5 0.0-7.0 % Basophils (%) (Auto) 0.6 0.0-2.0 % Neutrophils # (Auto) 2.7 1.6-8.6 10 ^3/uL Lymphocytes # (Auto) 2.3 0.4-5.4 10 ^3/uL Monocytes # (Auto) 0.6 0-1.3 10 ^3/uL Eosinophils # (Auto) 0.2 0-0.8 10 ^3/uL Basophils # (Auto) 0 0-0.2 10 ^3/uL Nucleated Red Blood Cells 0.1 % Sodium Level 140 136-145 mmol/L Potassium Level 3.9 3.5-5.1 mmol/L Chloride Level 108 H 98-107 mmol/L Carbon Dioxide Level 26 20-31 mmol/L Anion Gap 6 5-15 Blood Urea Nitrogen 10 9-23 mg/dL Creatinine 0.97 0.700-1.30 mg/dL Glomerular Filtration Rate Calc 97 >90 mL/min BUN/Creatinine Ratio 10.3 10.0-20.0 Serum Glucose 91 74-106 mg/dL Calcium Level 9.9 8.7-10.4 mg/dL Total Bilirubin 0.5 0.2-1.0 mg/dL Aspartate Amino Transferase (AST) 16 13-40 U/L Alanine Aminotransferase (ALT) 17 7-40 U/L Alkaline Phosphatase 80 46-116 U/L Total Protein 7.7 5.7-8.2 g/dL Albumin 4.4 3.2-4.8 g/dL X-Ray, Labs, Meds, VS Comment LIKELY FUNGAL. TRIAL CLOTRIMAZOLE/TRIMICALONE B.I.D. TIMES 10 DAYS. ADVISED TO KEEP AREA DRY. FOLLOW UP WITH YOUR PCP IN 2-3 DAYS NECESSARY. ER RETURN PRECAUTIONS GIVEN PATIENT AGREES WITH DISCHARGE PLAN OF CARE. Time of 1ST Reevaluation: 22:20 Reevaluation 1ST: Improved Patient Education/Counseling: Diagnosis, Treatment, Prognosis, Need For Follow Up Family Education/Counseling: Diagnosis, Treatment, Prognosis, Need For Follow Up Departure 1 Departure Time of Disposition: 22:20 Impression: Primary Impression: Fungal infection of skin Disposition: HOME / SELF CARE / HOMELESS Condition: Stable e-Prescriptions Clotrimazole W/ Betamethasone (Clotrimazole/Betamethason 1-0.05 %) 1 Cre Cre 1 CRE EX BID for 10 Days, #15 GRAMS APPLY THIN LAYER TO AFFECTED AREA TWICE DAILY TIMES 10 DAYS Prov: LILIAN LE 07/22/24 Discharged With: Self Critical Care Note Critical Care Time?: No Stability Stability form required: No LILIAN LE Jul 22, 2024 20:55
[2024-07-22 21:38] LABS: Basophils # (auto) 0 10 ^3/uL (0-0.2); Basophils % (auto) 0.6 % (0.0-2.0); Eosinophils # (auto) 0.2 10 ^3/uL (0-0.8); Eosinophils % (auto) 3.5 % (0.0-7.0); Hematocrit 51.4 % (41.0-53.0); Lymphocytes # (auto) 2.3 10 ^3/uL (0.4-5.4); Lymphocytes % (auto) 39.3 % (10.0-50.0); Mean Corpuscular Hemoglobin 31.3 pg (28.0-32.0); Mean Corpuscular Hgb Conc. 33.1 g/dL (32.0-36.0); Mean Corpuscular Volume 94.8 fL (80.0-100.0); Monocytes # (auto) 0.6 10 ^3/uL (0-1.3); Monocytes % (auto) 10.5 % (0.0-12.0); Neutrophils # (auto) 2.7 10 ^3/uL (1.6-8.6); Neutrophils % (auto) 46.1 % (37.0-80.0); Nucleated Red Blood Cells % 0.1 %; Platelet Count (auto) 213 10^3/uL (140-450); Red Blood Cells 5.42 10^6/uL (4.5-5.90); Red Cell Distribution Width 14.8 % (11.8-14.3); White Blood Cell 5.9 10^3/uL (4.4-10.8)
[2024-07-22 21:50] LABS: Alanine Aminotransferase 17 U/L (7-40); Albumin 4.4 g/dL (3.2-4.8); Alkaline Phosphatase 80 U/L (46-116); Anion Gap 6 (5-15); Aspartate Aminotransferase 16 U/L (13-40); BUN/Creatinine Ratio 10.3 (10.0-20.0); Bilirubin, Total 0.5 mg/dL (0.2-1.0); Blood Urea Nitrogen 10 mg/dL (9-23); Calcium 9.9 mg/dL (8.7-10.4); Carbon Dioxide 26 mmol/L (20-31); Glucose 91 mg/dL (74-106); Potassium 3.9 mmol/L (3.5-5.1); Sodium 140 mmol/L (136-145); Total Protein 7.7 g/dL (5.7-8.2)
[2024-07-22 22:18] VITALS: BP 166/107; PULSE 75; RESP 19; TEMP 98.4; O2SAT 98
[2024-07-22] MEDS ORDERED: CLOTCRE3 EX (22:22)
[2024-07-22 22:25] LABS: Chloride 108 mmol/L (98-107)
== END 2024-07-22 22:35 | disposition home or self-care (01) ==
LOC: ER 20:06
DX: B36.9 Superficial mycosis, unspecified (principal); I11.0 Hypertensive heart disease with heart failure; I50.9 Heart failure, unspecified; J44.9 Chronic obstructive pulmonary disease, unspecified; K21.9 Gastro-esophageal reflux disease without esophagitis; F41.9 Anxiety disorder, unspecified; F12.10 Cannabis abuse, uncomplicated; F15.10 Other stimulant abuse, uncomplicated; F17.210 Nicotine dependence, cigarettes, uncomplicated; Z79.01 Long term (current) use of anticoagulants; Z79.82 Long term (current) use of aspirin; Z79.899 Other long term (current) drug therapy; Z86.73 Personal history of transient ischemic attack (TIA), and cerebral infarction without residual deficits; Z88.0 Allergy status to penicillin; Z88.5 Allergy status to narcotic agent; Z90.49 Acquired absence of other specified parts of digestive tract
CPT/HCPCS: 36415; 80053; 85025

== ENCOUNTER 2024-08-05 04:56 | Inpatient (IN) | payer OTHER, MEDICAID ==
[~2024-08-05] VITALS: Ht 188 cm; Wt 108.9 kg
--- NOTE | 2024-08-05 05:15 | ED.PDOC ---
Altered Mental Status HPI Comments 48-year-old male came to ER via EMS for altered level of consciousness. Patient has history of hypertension, CHF, COPD, CVA and seizures. Possibly had a seizure episode earlier today as patient was found to be altered and confused by family members. Upon arrival of paramedics, patient is still confused but also agitated and aggressive, so patient was sedated with Versed 5 mg Chief Complaint: ALOC Time Seen by MD: 05:15 Primary Care Provider: MARY Moffett Notes: Label Coder Notes Allergies: Coded Allergies: Penicillins (Verified Allergy, Severe, 03/02/23) Ketorolac Tromethamine (Verified Allergy, Unknown, 03/02/23) Morphine (Verified Allergy, Unknown, 03/02/23) Tramadol (Verified Allergy, Unknown, 03/02/23) Home Meds Active Scripts Doxycycline Hyclate (DOXYCYCLINE HYCLATE) 100 Mg Tab, 1 TAB PO BID for 5 Days, #10 TAB Prov:FEROZ ALVARADO MD 08/22/21 Reported Medications Gabapentin (Gabapentin) 300 Mg Cap, 300 MG PO DAILY, MG 08/20/21 Furosemide (Furosemide) 40 Mg Tab, 1 TAB PO DAILY, TAB 08/20/21 Alprazolam (Xanax) 0.25 Mg Tb, 1 TAB PO DAILY, #30 TAB 05/04/19 Pantoprazole Sodium Sesquihydr (Protonix) 40 Mg Tab, 40 MG PO DAILY, #30 TAB 05/04/19 Oxycodone HCl (Oxycodone HCl ER) 30 Mg Tab, 30 MG PO QIDPRN, TAB 05/04/19 Carvedilol (Carvedilol) 12.5 Mg Tab, 1 TAB PO BID, #180 TAB 1 Refill 11/12/17 Lisinopril (Lisinopril) 20 Mg Tab, 20 MG PO DAILY for 30 Days, MG 11/12/17 Warfarin Sodium (Coumadin) 5 Mg Tab, 1 TAB PO DAILY, #90 TAB 1 Refill 11/12/17 Spironolactone (Spironolactone) 25 Mg Tab, 1 TAB PO DAILY, #90 TAB 1 Refill 11/12/17 Aspirin (Aspir-Low) 81 Mg Tab, 81 MG PO DAILY for 30 Days, MG 11/12/17 Albuterol Sulfate (Albuterol Sulfate) 2 Mg Tab, 2 MG PO Q4HPRN PRN for SHORTNESS OF BREATH, MG 11/12/17 Enoxaparin Sodium (Lovenox) 100 Mg/1 Ml Inj, 120 MG SC DAILY, INJ 11/12/17 Oxycodone Hcl (OXYCODONE HCL) 5 Mg Tb, 30 MG PO [id number] PRN for MODERATE PAIN 11/12/17 Pantoprazole Sodium Sesquihydr (Protonix) 40 Mg Tab, 40 MG PO BID, #30 TAB 11/12/17 Alprazolam (Xanax) 2 Mg Tab, 2 MG PO BID, TAB 06/14/16 Sucralfate (CARAFATE) 1 Gm Tab, 1 GM PO TID, TAB 06/02/16 Discontinued Scripts Clotrimazole W/ Betamethasone (Clotrimazole/Betamethason 1-0.05 %) 1 Cre Cre, 1 CRE EX BID for 10 Days, #15 GRAMS APPLY THIN LAYER TO AFFECTED AREA TWICE DAILY TIMES 10 DAYS Prov:REYLILIAN [facility] 07/22/24 Information Source: Patient, Emergency Med Personnel Mode of Arrival: EMS Severity: Unable to Care for Self Timing: Minutes Duration: Since onset, Minutes Prehospital treatment: Treatment Quality: Decreased Alertness, Change in Behavior, Confusion Recent: Other (Seizure) History of: Seizure Past Medical History PAST MEDICAL HISTORY: Anxiety, CHF, COPD, CVA, GERD, High Lipids, HTN, Kidney Stones, OR, Seizures Surgical History: Cholecystectomy Family History Family History: Reviewed,noncontributory to illness Social History Smoker: Cigarettes Alcohol: Occasionally Drugs: Marijuana Lives In: Home Unable to Obtain due to: Altered Mental Status Physical Exam General Appearance: No Apparent Distress, Normal HEENT: Normal ENT Inspection, Pharynx Normal, TMs Normal Neck: Full Range of Motion, Non-Tender, Normal, Normal Inspection Respiratory: Chest Non-Tender, Lungs Clear, No Accessory Muscle Use, No Respiratory Distress, Normal Breath Sounds Cardiovascular: No Edema, No JVD, No Murmur, No Gallop, Normal Peripheral Pulse s, Regular Rate/Rhythm Breast Exam: Deferred Gastrointestinal: No Organomegaly, Non Tender, No Pulsatile Mass, Normal Bowel Sounds, Soft Genitalia: Deferred Pelvic: Deferred Rectal: Deferred Extremities: No calf tenderness, Normal capillary refill, Normal inspection, Normal range of motion, Non-tender, No pedal edema Musculoskeletal : Apperance: Normal Neurologic: Alert, neuroscientist II-XII nml as Tested, No Motor Deficits, Normal Affect, Normal Mood, No Sensory Deficits Cerebellar Function: Normal Reflexes: Normal Skin: Dry, Normal Color, Warm Lymphatic: No Adenopathy Was a procedure done? Was a procedure done?: No Differential Diagnosis (ALOC) Differential Diagnosis: Dehydration, Hypoglycemia, Encephalopathy, Hypoxemia, Seizure, CVA, Drug Overdose, ETOH Intoxication X-Ray, Labs, Meds, VS Vital Signs Date Time Temp Pulse Resp B/P (MAP) Pulse Ox O2 Delivery O2 Flow Rate FiO2 08/05/24 04:56 97.9 95 20 148/101 (117) 97 Current Medications Medications (Trade) Dose Ordered Sig/Aylin Route Start Time Stop Time Status Last Admin Levetiracetam 100 ml @ 400 mls/hr ONCE ONCE IV 08/05/24 05:15 08/05/24 05:29 DC 08/05/24 05:40 Time of 1ST Reevaluation: 05:10 Reevaluation 1ST: Unchanged Patient Education/Counseling: Diagnosis, Treatment Family Education/Counseling: No Family Present Departure 1 Departure Time of Disposition: 05:59 (Patient with a breakthrough seizures received Keppra we will monitor patient still patient is no longer postictal.) Impression: Primary Impression: Breakthrough seizure Disposition: 30 STILL A PATIENT Condition: Fair Critical Care Note Critical Care Time?: Yes (35 min-critical care time only) Critical care comment: Altered level of consciousness Stability Stability form required: No Heart Score Heart Score: Heart Score Response (Comments) Value History N/A 0 EKG N/A 0 Age N/A 0 Risk Factors N/A 0 Troponin N/A 0 Total 0 I personally scribed for SHAY MARTINEZ MD ([email or web address]) on 08/05/24 at 05:15. Electronically submitted by Jonathan Moreno ([email or web address]). SHAY MARTINEZ MD Aug 05, 2024 05:15
[2024-08-05] MEDS: levETIRAcetam 1000 mg/100ml 100 ML IV ONE (05:40)
[2024-08-05 08:00] VITALS: PULSE 89; RESP 18; O2SAT 97
[2024-08-05] MEDS: LORazepam 2MG/ML-1ML VIAL IV ONE ×2 (12:26→20:14)
[2024-08-05] MEDS: diphenhdrAMINE HCL 50 MG/1 ML VL IM ONE (17:38)
[2024-08-05] MEDS: HALOPERIDOL LACTATE 5 MG/ML INJ VIAL IM ONE (17:38)
--- NOTE | 2024-08-05 18:23 | DVH ---
EXAM: CT HEAD WITHOUT CONTRAST HISTORY: altered COMPARISON: CT HEAD WITHOUT CONTRAST on DOS: 03/02/23, HEAD WITHOUT CONTRAST on DOS: 08/19/21, HEAD WIT HOUT CONTRAST on DOS: 08/18/21 TECHNIQUE: Axial images were obtained and reformatted in coronal and sagittal planes. All CT scans at this medical facility are performed using dose modulation techniques as appropriate t o a performed exam including the following: Automated exposure control was utilized; adjustment of th e MA and/or KV according to patient size; and use of iterative reconstruction technique. CT Dose: CTDI volume is 62.28 mGy. Dose-length product is 998.15 mGy*cm FINDINGS: Supratentorial Region: No evidence for large acute territorial ischemia. Stable moderate multifocal bilateral encephalomalacia reflecting remote ischemic insults. No intracranial hemorrhage is noted. Posterior Fossa: No acute abnormality. Small bilateral superior cerebellar lobe encephalomalacia are as. Brainstem: Unremarkable. Sellar/Suprasellar Region: Unremarkable. Ventricles, Cisterns, Sulci: Age-appropriate. Orbits: Unremarkable. Paranasal Sinuses: Unremarkable. Mastoid Air Cells: Unremarkable. Vasculature: Unremarkable. Bones/Soft Tissues: No acute abnormality. Other: None. IMPRESSION: 1. No acute intracranial process.
[2024-08-05 20:00] VITALS: PULSE 59; PULSE 69; RESP 17; O2SAT 99
[2024-08-05 20:50] LABS: Urine Bacteria None Seen /hpf (None Seen)
[2024-08-05 21:12] LABS: Urine Blood Negative /uL (Negative); Urine Clarity Clear (Clear); Urine Color Yellow (Yellow); Urine Mucus FEW (None Seen); Urine Protein, UAD TRACE (Negative); Urine Specific Gravity 1.029 (1.001-1.035); Urine Squamous Epithelial Cell FEW /hpf (<5); Urine Urobilinogen 2 mg/dL (Negative); Urine WBC 2 /HPF (0-3)
[2024-08-05 21:25] LABS: Cannabinoid Screen, Urine Pos (NEGATIVE)
[2024-08-05 21:28] LABS: Amphetamine Screen, Urine Neg (NEGATIVE); Barbiturate Scree,Urine Neg (NEGATIVE); Benzodiazephine Screen, Urine Pos (NEGATIVE); Cocaine Screen, Urine Neg (NEGATIVE); Opiate Scree,Urine Neg (NEGATIVE); Phencyclidine Screen, Urine Neg (NEGATIVE)
[2024-08-05 22:03] LABS: Basophils # (auto) 0 10 ^3/uL (0-0.2); Basophils % (auto) 0.8 % (0.0-2.0); Eosinophils # (auto) 0.1 10 ^3/uL (0-0.8); Eosinophils % (auto) 2.1 % (0.0-7.0); Hematocrit 48.8 % (41.0-53.0); Hemoglobin 15.9 g/dL (13.5-17.5); Lymphocytes # (auto) 1.6 10 ^3/uL (0.4-5.4); Lymphocytes % (auto) 32.6 % (10.0-50.0); Mean Corpuscular Hemoglobin 30.8 pg (28.0-32.0); Mean Corpuscular Hgb Conc. 32.7 g/dL (32.0-36.0); Mean Corpuscular Volume 94.2 fL (80.0-100.0); Monocytes # (auto) 0.5 10 ^3/uL (0-1.3); Monocytes % (auto) 10.8 % (0.0-12.0); Neutrophils # (auto) 2.6 10 ^3/uL (1.6-8.6); Neutrophils % (auto) 53.7 % (37.0-80.0); Nucleated Red Blood Cells % 0.1 %; Platelet Count (auto) 229 10^3/uL (140-450); Red Blood Cells 5.18 10^6/uL (4.5-5.90); Red Cell Distribution Width 14.3 % (11.8-14.3); White Blood Cell 4.9 10^3/uL (4.4-10.8)
[2024-08-05 22:26] LABS: Alanine Aminotransferase 13 U/L (7-40); Albumin 4.1 g/dL (3.2-4.8); Alkaline Phosphatase 72 U/L (46-116); Anion Gap 6 (5-15); Aspartate Aminotransferase 24 U/L (13-40); BUN/Creatinine Ratio 8.9 (10.0-20.0); Blood Alcohol 4.1 mg/dL (<10); Calcium 9.5 mg/dL (8.7-10.4); Carbon Dioxide 24 mmol/L (20-31); Glucose 83 mg/dL (74-106); Sodium 139 mmol/L (136-145)
[2024-08-05 22:27] LABS: Bilirubin, Total 1.1 mg/dL (0.2-1.0); Total Protein 7.2 g/dL (5.7-8.2)
[2024-08-05 22:29] LABS: Blood Urea Nitrogen 8 mg/dL (9-23); Chloride 109 mmol/L (98-107); Potassium 3.4 mmol/L (3.5-5.1)
[2024-08-05] MEDS ORDERED: ONDANSETRON HCL 4 MG/2 ML VIAL IV PRN (23:30)
[2024-08-06] VITALS (8 sets, daily range): BP systolic 131–160; BP diastolic 84–97; PULSE 55–94; RESP 16–21; TEMP 97.1–98.4; O2SAT 98–100
--- NOTE | 2024-08-06 00:06 | DVHHP2 ---
Admitting Diagnosis: Metabolic encephalopathy, seizure History of Present Illness History Source: RN Notes, MD Notes Exam Limitations: Clinical condition HPI Mr. Blade Pena is a 48-year-old male with a history of Hypertension, COPD, CVA, Seizures who presents for altered level of consciousness. Possibly had a seizure episode earlier yesterday as patient was found to be altered and confused by family members. Patient was still confused but also agitated and aggressive upon arrival to the hospital. Limited HPI due to patient altered mental status, patient is alert and oriented to self and place only. Patient reports he does not remember what happened or why he is in the hospital. Patient endorses he has not been taking any of his home prescribed medications. Patient admitted for further evaluation. Home Meds Active Scripts Doxycycline Hyclate (DOXYCYCLINE HYCLATE) 100 Mg Tab, 1 TAB PO BID for 5 Days, #10 TAB Prov:FEROZ ALVARADO MD 08/22/21 Reported Medications Gabapentin (Gabapentin) 300 Mg Cap, 300 MG PO DAILY, MG 08/20/21 Furosemide (Furosemide) 40 Mg Tab, 1 TAB PO DAILY, TAB 08/20/21 Alprazolam (Xanax) 0.25 Mg Tb, 1 TAB PO DAILY, #30 TAB 05/04/19 Pantoprazole Sodium Sesquihydr (Protonix) 40 Mg Tab, 40 MG PO DAILY, #30 TAB 05/04/19 Oxycodone HCl (Oxycodone HCl ER) 30 Mg Tab, 30 MG PO QIDPRN, TAB 05/04/19 Carvedilol (Carvedilol) 12.5 Mg Tab, 1 TAB PO BID, #180 TAB 1 Refill 11/12/17 Lisinopril (Lisinopril) 20 Mg Tab, 20 MG PO DAILY for 30 Days, MG 11/12/17 Warfarin Sodium (Coumadin) 5 Mg Tab, 1 TAB PO DAILY, #90 TAB 1 Refill 11/12/17 Spironolactone (Spironolactone) 25 Mg Tab, 1 TAB PO DAILY, #90 TAB 1 Refill 11/12/17 Aspirin (Aspir-Low) 81 Mg Tab, 81 MG PO DAILY for 30 Days, MG 11/12/17 Albuterol Sulfate (Albuterol Sulfate) 2 Mg Tab, 2 MG PO Q4HPRN PRN for SHORTNESS OF BREATH, MG 11/12/17 Enoxaparin Sodium (Lovenox) 100 Mg/1 Ml Inj, 120 MG SC DAILY, INJ 11/12/17 Oxycodone Hcl (OXYCODONE HCL) 5 Mg Tb, 30 MG PO [id number] PRN for MODERATE PAIN 11/12/17 Pantoprazole Sodium Sesquihydr (Protonix) 40 Mg Tab, 40 MG PO BID, #30 TAB 11/12/17 Alprazolam (Xanax) 2 Mg Tab, 2 MG PO BID, TAB 06/14/16 Sucralfate (CARAFATE) 1 Gm Tab, 1 GM PO TID, TAB 06/02/16 Discontinued Scripts Clotrimazole W/ Betamethasone (Clotrimazole/Betamethason 1-0.05 %) 1 Cre Cre, 1 CRE EX BID for 10 Days, #15 GRAMS APPLY THIN LAYER TO AFFECTED AREA TWICE DAILY TIMES 10 DAYS Prov:LILIAN LE [employer]OL [employer] WORK[employer] 07/22/24 Past Medical History Cardiac: HTN Pulmonary: COPD Central Nervous System: CVA, Seizure GI: No pertinent Hx Hemotology/Oncology: No pertinent Hx Hepatobiliary: No pertinent Hx Psychiatric: No pertinent Hx Musculoskeletal: No pertinent Hx Rheumotologic: No pertinent Hx Infectious Disease: No peritnent Hx ENT: No pertinent Hx Renal/: No pertinent Hx Endocrine: No pertinent Hx Dermatology: No pertinent Hx Patient Family History: Cancer G8 FATHER GRANDFATHER FH: congestive heart failure G8 MOTHER FH: diabetes mellitus Family history: Diabetes mellitus G8 FATHER GRANDMOTHER Family history: Hypertension G8 MOTHER Stroke Smoker: No Hx (Negative) Drugs: Marijuana Lives with: With family Domestic Violence: Neg Review of Systems Comments unable to do ROS due to altered mental status H&P Exam Vital Signs Vital Signs Date Time Temp Pulse Resp B/P (MAP) Pulse Ox O2 Delivery O2 Flow Rate FiO2 08/05/24 20:00 69 17 99 Room Air* 0 21 08/05/24 19:00 142/102 (115) 08/05/24 14:31 97.9 97.9 General Appeara: Well developed, Well nourished Head Exam: Normal inspection Neck Exam: Normal inspection, Non-tender, Normal alignment Eye Exam: bilateral eye Normal inspection, bilateral eye PERRL, bilateral eye EOMI Ear Exam: bilateral ear Auricle normal, bilateral ear Canal normal, bilateral ear TM normal Nasal Exam: Normal inspection Mouth: Normal Inspection Pulmonary/Respiratory: Normal inspection, Normal breath sounds, Chest non- tender, Lungs clear Cardiovascular/Chest: Normal inspection, Regular rate, Normal Rhythm Peripheral Pulses: 2+ dorsalis pedis (R), 2+ dorsalis pedis (L), 2+ Radial (R), 2+ Radial (L) Abdominal Exam: Normal bowel sounds, Soft Rectal Exam: Deferred APPLIQUER ZIGZAG Exam: Normal hearing, PERRL Neuro/Mental St: Alert, Oriented (to self only) Appearance: Disheveled, Impaired insight Eye contact/ Speech: Cooperative, Avoids eye contact, Refused to answer, Decr eased rate of speech Skin Exam: Normal color, Warm/dry Labs/Xrays Labs Test 08/05/24 21:22 08/05/24 20:48 Range/Units White Blood Count 4.9 4.4-10.8 10^3/uL Red Blood Count 5.18 4.5-5.90 10^6/uL Hemoglobin 15.9 13.5-17.5 g/dL Hematocrit 48.8 41.0-53.0 % Mean Corpuscular Volume 94.2 80.0-100.0 fL Mean Corpuscular Hemoglobin 30.8 28.0-32.0 pg Mean Corpuscular Hemoglobin Concent 32.7 32.0-36.0 g/dL Red Cell Distribution Width 14.3 11.8-14.3 % Platelet Count 229 140-450 10^3/uL Mean Platelet Volume 8.6 6.9-10.8 fL Neutrophils (%) (Auto) 53.7 37.0-80.0 % Lymphocytes (%) (Auto) 32.6 10.0-50.0 % Monocytes (%) (Auto) 10.8 0.0-12.0 % Eosinophils (%) (Auto) 2.1 0.0-7.0 % Basophils (%) (Auto) 0.8 0.0-2.0 % Neutrophils # (Auto) 2.6 1.6-8.6 10 ^3/uL Lymphocytes # (Auto) 1.6 0.4-5.4 10 ^3/uL Monocytes # (Auto) 0.5 0-1.3 10 ^3/uL Eosinophils # (Auto) 0.1 0-0.8 10 ^3/uL Basophils # (Auto) 0 0-0.2 10 ^3/uL Nucleated Red Blood Cells 0.1 % Sodium Level 139 136-145 mmol/L Potassium Level 3.4 L 3.5-5.1 mmol/L Chloride Level 109 H 98-107 mmol/L Carbon Dioxide Level 24 20-31 mmol/L Anion Gap 6 5-15 Blood Urea Nitrogen 8 L 9-23 mg/dL Creatinine 0.90 0.700-1.30 mg/dL Glomerular Filtration Rate Calc 106 >90 mL/min BUN/Creatinine Ratio 8.9 L 10.0-20.0 Serum Glucose 83 74-106 mg/dL Calcium Level 9.5 8.7-10.4 mg/dL Total Bilirubin 1.1 H 0.2-1.0 mg/dL Aspartate Amino Transferase (AST) 24 13-40 U/L Alanine Aminotransferase (ALT) 13 7-40 U/L Alkaline Phosphatase 72 46-116 U/L Ammonia 28 11-32 umol/L Total Protein 7.2 5.7-8.2 g/dL Albumin 4.1 3.2-4.8 g/dL Plasma/Serum Blood Alcohol 4.1 <10 mg/dL Urine Color Yellow Yellow Urine Clarity Clear Clear Urine pH 6.0 5.0-9.0 Urine Specific [place] 1.029 1.001-1.035 Urine Protein Trace H Negative Urine Ketones Negative Negative Urine Blood Negative Negative /uL Urine Nitrite Negative Negative Urine Bilirubin Negative Negative Urine Urobilinogen 2 H Negative mg/dL Urine Leukocyte Esterase Negative Negative /uL Urine RBC 2 0 - 3 /hpf Urine Microscopic WBC 2 0-3 /HPF Urine Squamous Epithelial Cells Few <5 /hpf Urine Calcium Oxalate Crystals Many None Seen Urine Bacteria None seen None Seen /hpf Urine Mucus Few None Seen Urine Glucose Normal Normal mg/dL Urine Opiates Screen Neg NEGATIVE Urine Fentanyl Screen Neg NEGATIVE Urine Barbiturates Screen Neg NEGATIVE Urine Phencyclidine Screen Neg NEGATIVE Urine Amphetamines Screen Neg NEGATIVE Urine Benzodiazepines Screen Pos NEGATIVE Urine Cocaine Screen Neg NEGATIVE Urine Cannabinoids Screen Pos NEGATIVE Assessment/Plan Problem List: (1) Metabolic encephalopathy (2) Altered mental status (3) Breakthrough seizure Plan This is a 48 yo male with known history of hypertension, COPD, CVA, Seizures who presents with altered mental status possible unwitnessed seizure. 1. Metabolic encephalopathy 2. Seizure , unknown PLAN Admit Telemetry Neurology consultation, Seizure precautions Aspirations precautions Fall precautions Keppra IV TSH, Ammonia level, UDS, UA Discussed assessment and care plan with supervising MD. Plan discussed with: Other Code Visit Code Visit Total Time (mins): 45 Additional Comments Additional Comments Additional Comments Patient was seen and evaluated by me. I agree with the assessment and plan as outlined by my nurse practitioner. SHAUN MCFADDEN Aug 06, 2024 00:06 LARISA BYERS MD Aug 06, 2024 15:59
[2024-08-06] MEDS: SODIUM CHLORIDE 0.9% 1,000 ML IV SCH (01:20)
[2024-08-06] MEDS: POTASSIUM CHL 20MEQ/100ML 100 ML IV ONE (01:20)
[2024-08-06] MEDS: LORazepam 2MG/ML-1ML VIAL ONE (08:25)
[2024-08-06] MEDS ORDERED: LORazepam 2MG/ML-1ML VIAL IM ONE (08:30)
[2024-08-06] MEDS: LORazepam 2MG/ML-1ML VIAL IV ONE (08:37)
[2024-08-06] MEDS: PANTOPRAZOLE 40 MG/10 ML VIAL INJ IV SCH (09:02)
[2024-08-06] MEDS: ENOXAPARIN SOD 40 MG/0.4 ML SYRINGE SC SCH (09:04)
[2024-08-06] MEDS: levETIRAcetam 500 mg/100ml 100 ML IV SCH (09:04)
[2024-08-06] MEDS ORDERED: oxyCODONE HCL 5MG TAB PO PRN (11:15)
[2024-08-06] MEDS: GABAPENTIN 300 MG CAP PO SCH (14:40)
[2024-08-06] MEDS: oxyCODONE HCL 5MG TAB PO PRN (14:41)
[2024-08-06] MEDS: SUCRALFATE 1 GM TAB PO SCH (14:41)
[2024-08-06] MEDS: LORazepam 2MG/ML-1ML VIAL IV PRN (15:02)
[2024-08-06] MEDS ORDERED: LEVE500T40 PO (16:53)
[2024-08-06] MEDS: CARVEDILOL 12.5 MG TAB PO SCH (21:18)
[2024-08-07] VITALS (8 sets, daily range): BP systolic 113–150; BP diastolic 77–100; PULSE 58–93; RESP 16–18; TEMP 97.1–98.9; O2SAT 92–100
[2024-08-07] MEDS: ASPirin-EC 81 mg tab PO SCH (09:02)
[2024-08-07] MEDS: FUROSEMIDE 40 MG TAB PO SCH (09:02)
[2024-08-07] MEDS ORDERED: SPIRONOLACTONE 25 MG TAB PO SCH (10:00)
[2024-08-07] MEDS ORDERED: ALPRAZolam 0.25 MG TAB PO SCH (10:00)
[2024-08-07] MEDS ORDERED: LISINOPRIL 20 MG TAB PO SCH (10:00)
[2024-08-07] MEDS ORDERED: GABAPENTIN 300 MG CAP PO SCH (10:00)
[2024-08-07] MEDS ORDERED: VALS160T53 PO (11:49)
[2024-08-07] MEDS ORDERED: METO25TA5 PO (11:49)
[2024-08-07] MEDS: ALPRAZolam 0.25 MG TAB PO PRN (11:57)
--- NOTE | 2024-08-07 13:43 | DVHINCON2 ---
Neuro Consultation Date of Consultation Date: 08/07/24 History of Present Illness History of Present Illness: Blade Pena is a 48 year old male who presents with seizure Unable to obtain information as patient is confused but per notes, patient was found confused and had a witnessed seizure while hospitalized Per [facility] notes from 05/2024, patient has history of multiple strokes with R sided weakness. Per reprots he was supposed to be on Keppra 1000mg BID. Increased to Keppra 2000mg BID due to status epilepticus Review of Systems Review of Systems: Review of Systems: 12 point review of systems is negative unless stated in HPI. Family History Patient History: Cancer G8 FATHER GRANDFATHER FH: congestive heart failure G8 MOTHER, Onset:Unknown FH: diabetes mellitus Family history: Diabetes mellitus G8 FATHER GRANDMOTHER, Onset:Unknown Family history: Hypertension G8 MOTHER, Onset:Unknown Stroke Allergies and Medications Allergies: Coded Allergies: Penicillins (Verified Allergy, Severe, 03/02/23) Ketorolac Tromethamine (Verified Allergy, Unknown, 03/02/23) Morphine (Verified Allergy, Unknown, 03/02/23) Tramadol (Verified Allergy, Unknown, 03/02/23) Home Meds: Active Scripts Doxycycline Hyclate (DOXYCYCLINE HYCLATE) 100 Mg Tab, 1 TAB PO BID for 5 Days, #10 TAB Prov:FEROZ ALVARADO MD 08/22/21 Reported Medications Valsartan-Hydrochlorothiazide (Diovan Hct) 160 /12.5 Tab, 1 TAB PO DAILY, #30 TAB 5 Refills 08/07/24 Metoprolol Tartrate (Metoprolol Tartrate) 25 Mg Tab, 25 MG PO for 30 Days, MG 08/07/24 Levetiracetam (Keppra) 500 Mg Tab, 1000 MG PO TID for 30 Days, MG 08/06/24 Gabapentin (Gabapentin) 300 Mg Cap, 300 MG PO TID, MG 08/20/21 Furosemide (Furosemide) 40 Mg Tab, 1 TAB PO DAILY, TAB 08/20/21 Aspirin (Aspir-Low) 81 Mg Tab, 81 MG PO DAILY for 30 Days, MG 11/12/17 Oxycodone Hcl (OXYCODONE HCL) 5 Mg Tb, 10 MG PO QID PRN for MODERATE PAIN 11/12/17 Pantoprazole Sodium Sesquihydr (Protonix) 40 Mg Tab, 40 MG PO BID, #30 TAB 11/12/17 Alprazolam (Xanax) 2 Mg Tab, 2 MG PO BID, TAB 06/14/16 Discontinued Reported Medications Alprazolam (Xanax) 0.25 Mg Tb, 1 MG PO DAILYP PRN for ANXIETY, #30 TAB 05/04/19 Pantoprazole Sodium Sesquihydr (Protonix) 40 Mg Tab, 40 MG PO DAILY, #30 TAB 05/04/19 Oxycodone HCl (Oxycodone HCl ER) 30 Mg Tab, 30 MG PO QIDPRN, TAB 05/04/19 Carvedilol (Carvedilol) 12.5 Mg Tab, 1 TAB PO BID, #180 TAB 1 Refill 11/12/17 Lisinopril (Lisinopril) 20 Mg Tab, 20 MG PO DAILY for 30 Days, MG 11/12/17 Warfarin Sodium (Coumadin) 5 Mg Tab, 1 TAB PO DAILY, #90 TAB 1 Refill 11/12/17 Spironolactone (Spironolactone) 25 Mg Tab, 1 TAB PO DAILY, #90 TAB 1 Refill 11/12/17 Albuterol Sulfate (Albuterol Sulfate) 2 Mg Tab, 2 MG PO Q4HPRN PRN for SHORTNESS OF BREATH, MG 11/12/17 Enoxaparin Sodium (Lovenox) 100 Mg/1 Ml Inj, 120 MG SC DAILY, INJ 11/12/17 Sucralfate (CARAFATE) 1 Gm Tab, 1 GM PO TID, TAB 06/02/16 Discontinued Scripts Clotrimazole W/ Betamethasone (Clotrimazole/Betamethason 1-0.05 %) 1 Cre Cre, 1 CRE EX BID for 10 Days, #15 GRAMS APPLY THIN LAYER TO AFFECTED AREA TWICE DAILY TIMES 10 DAYS Prov:LILIAN LE POULTRY BUYER 07/22/24 Current Medications: Current Medications Medications (Trade) Dose Ordered Sig/Aylin Route PRN Reason Start Time Stop Time Status Last Admin Alprazolam (Xanax Tablet) 0.25 mg DAILY PO 08/07/24 10:00 08/06/24 11:49 DC Aspirin (Ecotrin Enteric Coated Tablet) 81 mg DAILY PO 08/07/24 10:00 08/07/24 09:02 Furosemide (Lasix Tablet) 40 mg DAILY PO 08/07/24 10:00 08/07/24 09:02 Gabapentin (Neurontin Capsule) 300 mg DAILY PO 08/07/24 10:00 08/06/24 11:49 DC Lisinopril (Zestril Tablet) 20 mg DAILY PO 08/07/24 10:00 08/06/24 11:49 DC Spironolactone (Aldactone) 25 mg DAILY PO 08/07/24 10:00 08/06/24 11:49 DC Alprazolam (Xanax Tablet) 1 mg DAILY PRN PO ANXIETY 08/07/24 10:00 08/07/24 11:57 Levetiracetam (Keppra Tablet) 2,000 mg BID PO 08/07/24 22:00 08/07/24 21:45 General Examination Last Vital sign Vital Signs Date Time Temp Pulse Resp B/P (MAP) Pulse Ox O2 Delivery O2 Flow Rate FiO2 08/08/24 09:00 97.3 64 18 120/69 (86) 99 97.3 08/08/24 08:06 Room Air* 0 21 General Exam: General Examination: General: No apparent distress, appears comfortable. Cooperative HEENT: Normocephalic, atraumatic. Supple neck. No oropharynx lesion or exudate noted. Extremities: No noted edema or cyanosis Skin: No noted rashes or jaundice. Neuro Exam: Mental Status: Alert. Grunts yes, nonverbal. Difficulty following commands Cranial Nerves: Extraocular muscles are intact. No ptosis on primary gaze. No facial asymmetry noted. Motor: Bulk is normal. No abnormal movements were noted. B/L UE and LE antigravity strength Labs: Laboratory Tests Test 08/05/24 20:48 08/05/24 21:22 08/06/24 00:27 Range/Units Urine Color Yellow Yellow Urine Clarity Clear Clear Urine pH 6.0 5.0-9.0 Urine Specific [place] 1.029 1.001-1.035 Urine Protein Trace H Negative Urine Ketones Negative Negative Urine Blood Negative Negative /uL Urine Nitrite Negative Negative Urine Bilirubin Negative Negative Urine Urobilinogen 2 H Negative mg/dL Urine Leukocyte Esterase Negative Negative /uL Urine RBC 2 0 - 3 /hpf Urine Microscopic WBC 2 0-3 /HPF Urine Squamous Epithelial Cells Few <5 /hpf Urine Calcium Oxalate Crystals Many None Seen Urine Bacteria None seen None Seen /hpf Urine Mucus Few None Seen Urine Glucose Normal Normal mg/dL Urine Opiates Screen Neg NEGATIVE Urine Fentanyl Screen Neg NEGATIVE Urine Barbiturates Screen Neg NEGATIVE Urine Phencyclidine Screen Neg NEGATIVE Urine Amphetamines Screen Neg NEGATIVE Urine Benzodiazepines Screen Pos NEGATIVE Urine Cocaine Screen Neg NEGATIVE Urine Cannabinoids Screen Pos NEGATIVE White Blood Count 4.9 4.4-10.8 10^3/uL Red Blood Count 5.18 4.5-5.90 10^6/uL Hemoglobin 15.9 13.5-17.5 g/dL Hematocrit 48.8 41.0-53.0 % Mean Corpuscular Volume 94.2 80.0-100.0 fL Mean Corpuscular Hemoglobin 30.8 28.0-32.0 pg Mean Corpuscular Hemoglobin Concent 32.7 32.0-36.0 g/dL Red Cell Distribution Width 14.3 11.8-14.3 % Platelet Count 229 140-450 10^3/uL Mean Platelet Volume 8.6 6.9-10.8 fL Neutrophils (%) (Auto) 53.7 37.0-80.0 % Lymphocytes (%) (Auto) 32.6 10.0-50.0 % Monocytes (%) (Auto) 10.8 0.0-12.0 % Eosinophils (%) (Auto) 2.1 0.0-7.0 % Basophils (%) (Auto) 0.8 0.0-2.0 % Neutrophils # (Auto) 2.6 1.6-8.6 10 ^3/uL Lymphocytes # (Auto) 1.6 0.4-5.4 10 ^3/uL Monocytes # (Auto) 0.5 0-1.3 10 ^3/uL Eosinophils # (Auto) 0.1 0-0.8 10 ^3/uL Basophils # (Auto) 0 0-0.2 10 ^3/uL Nucleated Red Blood Cells 0.1 % Sodium Level 139 136-145 mmol/L Potassium Level 3.4 L 3.5-5.1 mmol/L Chloride Level 109 H 98-107 mmol/L Carbon Dioxide Level 24 20-31 mmol/L Anion Gap 6 5-15 Blood Urea Nitrogen 8 L 9-23 mg/dL Creatinine 0.90 0.700-1.30 mg/dL Glomerular Filtration Rate Calc 106 >90 mL/min BUN/Creatinine Ratio 8.9 L 10.0-20.0 Serum Glucose 83 74-106 mg/dL Calcium Level 9.5 8.7-10.4 mg/dL Magnesium Level 1.8 1.6-2.6 mg/dL Total Bilirubin 1.1 H 0.2-1.0 mg/dL Aspartate Amino Transferase (AST) 24 13-40 U/L Alanine Aminotransferase (ALT) 13 7-40 U/L Alkaline Phosphatase 72 46-116 U/L Ammonia 28 11-32 umol/L Troponin I High Sensitivity 13 14 </=54 ng/L Total Protein 7.2 5.7-8.2 g/dL Albumin 4.1 3.2-4.8 g/dL Thyroid Stimulating Hormone (TSH) 1.19 0.55-4.78 uIU/mL Plasma/Serum Blood Alcohol 4.1 <10 mg/dL Lactic Acid Level 0.8 0.4-2.0 mmol/L Assessment/Plan 1. Generalized seizures - Seen at [facility] in 05/2024 for status epilepticus, increased Keppra 1000mg BID to 2000mg BID. Currently, negative CT head for acute process. Utox +THC, BZD. Concern for noncompliance - Keppra 2000mg BID - Has outpt appt on 08/24 at [facility] with Dr. Ang Diggs Plan discussed with: Patient VIDA URIOSTEGUI MD Aug 07, 2024 13:43
[2024-08-07] MEDS: levETIRAcetam 500 MG TAB PO SCH (21:45)
[2024-08-08] VITALS (13 sets, daily range): BP systolic 120–140; BP diastolic 69–102; PULSE 58–98; RESP 16–22; TEMP 97.2–98.5; O2SAT 95–100
[2024-08-08] MEDS ORDERED: LACOSAMIDE 50 MG IV SCH (15:30)
[2024-08-08] MEDS ORDERED: LACOSAMIDE IV SCH (15:48)
[2024-08-08] MEDS ORDERED: D5W 5% IV SCH (15:48)
--- NOTE | 2024-08-08 17:22 | DVHPN2 ---
Subjective Patient was more awake alert. Patient continues to have recurrent seizures. 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 Medications Current Medications Medications Dose Ordered Sig/Aylin Route Start Time Stop Time Status Last Admin Dose Admin Ondansetron HCl 4 mg Q6HPRN PRN IV 08/05/24 23:30 Sodium Chloride 1,000 ml @ 100 mls/hr Q10H IV 08/05/24 23:30 08/08/24 01:35 100 MLS/HR Enoxaparin Sodium 40 mg DAILY SC 08/06/24 10:00 08/08/24 09:40 40 MG Pantoprazole Sodium 40 mg DAILY IV 08/06/24 10:00 08/08/24 09:39 40 MG Aspirin 81 mg DAILY PO 08/07/24 10:00 08/08/24 09:40 81 MG Carvedilol 12.5 mg BID PO 08/06/24 22:00 08/07/24 21:46 12.5 MG Furosemide 40 mg DAILY PO 08/07/24 10:00 08/08/24 09:40 40 MG Sucralfate 1 gm TID PO 08/06/24 14:00 08/08/24 13:36 1 GM Lorazepam 1 mg Q5MINP PRN IV 08/06/24 11:15 08/08/24 12:13 1 MG Alprazolam 1 mg DAILY PRN PO 08/07/24 10:00 08/07/24 11:57 1 MG Gabapentin 300 mg TID PO 08/06/24 14:00 08/08/24 13:36 300 MG Oxycodone HCl 10 mg QID PRN PO 08/06/24 11:45 08/07/24 19:10 10 MG Acetaminophen 650 mg Q4HP PRN PO 08/06/24 14:45 Levetiracetam 2,000 mg BID PO 08/07/24 22:00 08/08/24 09:40 2,000 MG Lacosamide 50 mg/ Dextrose 55 ml @ 110 mls/hr DAILY@0800,2000 IV 08/08/24 15:48 Laboratory Results Laboratory Tests 08/05/24 21:22 Urinalysis Test 08/05/24 20:48 Urine Color Yellow (Yellow) Urine Clarity Clear (Clear) Urine pH 6.0 (5.0-9.0) Urine Specific [place] 1.029 (1.001-1.035) Urine Protein Trace (Negative) H Urine Ketones Negative (Negative) Urine Blood Negative /uL (Negative) Urine Nitrite Negative (Negative) Urine Bilirubin Negative (Negative) Urine Urobilinogen 2 mg/dL (Negative) H Urine Leukocyte Esterase Negative /uL (Negative) Urine RBC 2 /hpf (0 - 3) Urine Microscopic WBC 2 /HPF (0-3) Urine Squamous Epithelial Cells Few /hpf (<5) Urine Calcium Oxalate Crystals Many (None Seen) Urine Bacteria None seen /hpf (None Seen) Urine Mucus Few (None Seen) Urine Glucose Normal mg/dL (Normal) Assessment/Plan Assessment/Plan 48-year-old male with a known history of hypertension, anxiety disorder, epilepsy initiation with the hospital with altered mental status and breakthrough seizures found to have 1. Acute metabolic encephalopathy secondary to breakthrough seizure 2. Breakthrough seizures 3. Epilepsy 4. Hypertension 5. Anxiety disorder -resume home dose of Keppra which is 2 g p.o. twice a day, Ativan p.r.n. seizure, neurology consultation (discussed with Dr. Tena Alatorre on the phone.) -aspiration precaution and seizure precautions. Plan discussed with: Patient, Other My Orders Orders - LARISA BYERS MD Procedure Category Date Status Time Lacosamide (Vimpat) PHA 08/08/24 In Process 15:48 Date of Service: Aug 07, 2024 Billing Provider: LARISA BYERS MD Common Visit Codes: NOT BILLABLE LARISA BYERS MD Aug 08, 2024 17:22
--- NOTE | 2024-08-08 17:23 | DVHPN2 ---
Subjective Patient was more awake alert. 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 Neurology was called Dr. Tena Alatorre recommended to load the patient with the lacosamide 50 mg IV twice a day. 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 Medications Current Medications Medications Dose Ordered Sig/Aylin Route Start Time Stop Time Status Last Admin Dose Admin Ondansetron HCl 4 mg Q6HPRN PRN IV 08/05/24 23:30 Sodium Chloride 1,000 ml @ 100 mls/hr Q10H IV 08/05/24 23:30 08/08/24 01:35 100 MLS/HR Enoxaparin Sodium 40 mg DAILY SC 08/06/24 10:00 08/08/24 09:40 40 MG Pantoprazole Sodium 40 mg DAILY IV 08/06/24 10:00 08/08/24 09:39 40 MG Aspirin 81 mg DAILY PO 08/07/24 10:00 08/08/24 09:40 81 MG Carvedilol 12.5 mg BID PO 08/06/24 22:00 08/07/24 21:46 12.5 MG Furosemide 40 mg DAILY PO 08/07/24 10:00 08/08/24 09:40 40 MG Sucralfate 1 gm TID PO 08/06/24 14:00 08/08/24 13:36 1 GM Lorazepam 1 mg Q5MINP PRN IV 08/06/24 11:15 08/08/24 12:13 1 MG Alprazolam 1 mg DAILY PRN PO 08/07/24 10:00 08/07/24 11:57 1 MG Gabapentin 300 mg TID PO 08/06/24 14:00 08/08/24 13:36 300 MG Oxycodone HCl 10 mg QID PRN PO 08/06/24 11:45 08/07/24 19:10 10 MG Acetaminophen 650 mg Q4HP PRN PO 08/06/24 14:45 Levetiracetam 2,000 mg BID PO 08/07/24 22:00 08/08/24 09:40 2,000 MG Lacosamide 50 mg/ Dextrose 55 ml @ 110 mls/hr DAILY@0800,2000 IV 08/08/24 15:48 Laboratory Results Laboratory Tests 08/05/24 21:22 Urinalysis Test 08/05/24 20:48 Urine Color Yellow (Yellow) Urine Clarity Clear (Clear) Urine pH 6.0 (5.0-9.0) Urine Specific [place] 1.029 (1.001-1.035) Urine Protein Trace (Negative) H Urine Ketones Negative (Negative) Urine Blood Negative /uL (Negative) Urine Nitrite Negative (Negative) Urine Bilirubin Negative (Negative) Urine Urobilinogen 2 mg/dL (Negative) H Urine Leukocyte Esterase Negative /uL (Negative) Urine RBC 2 /hpf (0 - 3) Urine Microscopic WBC 2 /HPF (0-3) Urine Squamous Epithelial Cells Few /hpf (<5) Urine Calcium Oxalate Crystals Many (None Seen) Urine Bacteria None seen /hpf (None Seen) Urine Mucus Few (None Seen) Urine Glucose Normal mg/dL (Normal) Assessment/Plan Assessment/Plan 48-year-old male with a known history of hypertension, anxiety disorder, epilepsy initiation with the hospital with altered mental status and breakthrough seizures found to have 1. Acute metabolic encephalopathy secondary to breakthrough seizure 2. Breakthrough seizures 3. Epilepsy 4. Hypertension 5. Anxiety disorder -start Vimpat 50 mg IV twice a day, continue Keppra which is 2 g p.o. twice a day, Ativan p.r.n. seizure, neurology consultation and recommendation appreciated (discussed with Dr. Tena Alatorre on the phone.) -aspiration precaution and seizure precautions. Plan discussed with: Patient, Other My Orders Orders - LARISA BYERS MD Procedure Category Date Status Time Lacosamide (Vimpat) PHA 08/08/24 In Process 15:48 Date of Service: Aug 08, 2024 Billing Provider: LARISA BYERS MD Common Visit Codes: NOT BILLABLE LARISA BYERS MD Aug 08, 2024 17:23
[2024-08-08] MEDS: D5W 5% IV SCH (17:45)
[2024-08-08] MEDS: LACOSAMIDE IV SCH (17:45)
[2024-08-09] VITALS (12 sets, daily range): BP systolic 104–141; BP diastolic 58–97; PULSE 59–75; RESP 17–20; TEMP 97.4–98.1; O2SAT 95–99
--- NOTE | 2024-08-09 08:53 | DVHPN2 ---
Neuro Progress Note Todays Date Date of Progress Note: 08/09/24 Date of Admission Date of Admission: Date of Admission: Aug 05, 2024 at 23:31 Overnight Events Overnight Events: Patient continues to have seizures. Family not sure of medications at home, per report stated that he takes Keppra 3000mg TID. Family History Patient History: Cancer G8 FATHER GRANDFATHER FH: congestive heart failure G8 MOTHER, Onset:Unknown FH: diabetes mellitus Family history: Diabetes mellitus G8 FATHER GRANDMOTHER, Onset:Unknown Family history: Hypertension G8 MOTHER, Onset:Unknown Stroke Allergies and Medications Allergies: Coded Allergies: Penicillins (Verified Allergy, Severe, 03/02/23) Ketorolac Tromethamine (Verified Allergy, Unknown, 03/02/23) Morphine (Verified Allergy, Unknown, 03/02/23) Tramadol (Verified Allergy, Unknown, 03/02/23) Home Meds Active Scripts Doxycycline Hyclate (DOXYCYCLINE HYCLATE) 100 Mg Tab, 1 TAB PO BID for 5 Days, #10 TAB Prov:FEROZ ALVARADO MD 08/22/21 Reported Medications Valsartan-Hydrochlorothiazide (Diovan Hct) 160 /12.5 Tab, 1 TAB PO DAILY, #30 TAB 5 Refills 08/07/24 Metoprolol Tartrate (Metoprolol Tartrate) 25 Mg Tab, 25 MG PO for 30 Days, MG 08/07/24 Levetiracetam (Keppra) 500 Mg Tab, 1000 MG PO TID for 30 Days, MG 08/06/24 Gabapentin (Gabapentin) 300 Mg Cap, 300 MG PO TID, MG 08/20/21 Furosemide (Furosemide) 40 Mg Tab, 1 TAB PO DAILY, TAB 08/20/21 Aspirin (Aspir-Low) 81 Mg Tab, 81 MG PO DAILY for 30 Days, MG 11/12/17 Oxycodone Hcl (OXYCODONE HCL) 5 Mg Tb, 10 MG PO QID PRN for MODERATE PAIN 11/12/17 Pantoprazole Sodium Sesquihydr (Protonix) 40 Mg Tab, 40 MG PO BID, #30 TAB 11/12/17 Alprazolam (Xanax) 2 Mg Tab, 2 MG PO BID, TAB 06/14/16 Discontinued Reported Medications Alprazolam (Xanax) 0.25 Mg Tb, 1 MG PO DAILYP PRN for ANXIETY, #30 TAB 05/04/19 Pantoprazole Sodium Sesquihydr (Protonix) 40 Mg Tab, 40 MG PO DAILY, #30 TAB 05/04/19 Oxycodone HCl (Oxycodone HCl ER) 30 Mg Tab, 30 MG PO QIDPRN, TAB 05/04/19 Carvedilol (Carvedilol) 12.5 Mg Tab, 1 TAB PO BID, #180 TAB 1 Refill 11/12/17 Lisinopril (Lisinopril) 20 Mg Tab, 20 MG PO DAILY for 30 Days, MG 11/12/17 Warfarin Sodium (Coumadin) 5 Mg Tab, 1 TAB PO DAILY, #90 TAB 1 Refill 11/12/17 Spironolactone (Spironolactone) 25 Mg Tab, 1 TAB PO DAILY, #90 TAB 1 Refill 11/12/17 Albuterol Sulfate (Albuterol Sulfate) 2 Mg Tab, 2 MG PO Q4HPRN PRN for SHORTNESS OF BREATH, MG 11/12/17 Enoxaparin Sodium (Lovenox) 100 Mg/1 Ml Inj, 120 MG SC DAILY, INJ 11/12/17 Sucralfate (CARAFATE) 1 Gm Tab, 1 GM PO TID, TAB 06/02/16 Discontinued Scripts Clotrimazole W/ Betamethasone (Clotrimazole/Betamethason 1-0.05 %) 1 Cre Cre, 1 CRE EX BID for 10 Days, #15 GRAMS APPLY THIN LAYER TO AFFECTED AREA TWICE DAILY TIMES 10 DAYS Prov:LILIAN LE [employer]SEHOLD CHORES 07/22/24 General Examination Last Vital sign Vital Signs Date Time Temp Pulse Resp B/P (MAP) Pulse Ox O2 Delivery O2 Flow Rate FiO2 08/09/24 08:00 Nasal Cannula* 2 28 08/09/24 05:00 97.6 68 17 107/68 (85) 96 97.6 General Exam: Labs Labs: Laboratory Tests Test 08/05/24 20:48 08/05/24 21:22 08/06/24 00:27 Range/Units Urine Color Yellow Yellow Urine Clarity Clear Clear Urine pH 6.0 5.0-9.0 Urine Specific [place] 1.029 1.001-1.035 Urine Protein Trace H Negative Urine Ketones Negative Negative Urine Blood Negative Negative /uL Urine Nitrite Negative Negative Urine Bilirubin Negative Negative Urine Urobilinogen 2 H Negative mg/dL Urine Leukocyte Esterase Negative Negative /uL Urine RBC 2 0 - 3 /hpf Urine Microscopic WBC 2 0-3 /HPF Urine Squamous Epithelial Cells Few <5 /hpf Urine Calcium Oxalate Crystals Many None Seen Urine Bacteria None seen None Seen /hpf Urine Mucus Few None Seen Urine Glucose Normal Normal mg/dL Urine Opiates Screen Neg NEGATIVE Urine Fentanyl Screen Neg NEGATIVE Urine Barbiturates Screen Neg NEGATIVE Urine Phencyclidine Screen Neg NEGATIVE Urine Amphetamines Screen Neg NEGATIVE Urine Benzodiazepines Screen Pos NEGATIVE Urine Cocaine Screen Neg NEGATIVE Urine Cannabinoids Screen Pos NEGATIVE White Blood Count 4.9 4.4-10.8 10^3/uL Red Blood Count 5.18 4.5-5.90 10^6/uL Hemoglobin 15.9 13.5-17.5 g/dL Hematocrit 48.8 41.0-53.0 % Mean Corpuscular Volume 94.2 80.0-100.0 fL Mean Corpuscular Hemoglobin 30.8 28.0-32.0 pg Mean Corpuscular Hemoglobin Concent 32.7 32.0-36.0 g/dL Red Cell Distribution Width 14.3 11.8-14.3 % Platelet Count 229 140-450 10^3/uL Mean Platelet Volume 8.6 6.9-10.8 fL Neutrophils (%) (Auto) 53.7 37.0-80.0 % Lymphocytes (%) (Auto) 32.6 10.0-50.0 % Monocytes (%) (Auto) 10.8 0.0-12.0 % Eosinophils (%) (Auto) 2.1 0.0-7.0 % Basophils (%) (Auto) 0.8 0.0-2.0 % Neutrophils # (Auto) 2.6 1.6-8.6 10 ^3/uL Lymphocytes # (Auto) 1.6 0.4-5.4 10 ^3/uL Monocytes # (Auto) 0.5 0-1.3 10 ^3/uL Eosinophils # (Auto) 0.1 0-0.8 10 ^3/uL Basophils # (Auto) 0 0-0.2 10 ^3/uL Nucleated Red Blood Cells 0.1 % Sodium Level 139 136-145 mmol/L Potassium Level 3.4 L 3.5-5.1 mmol/L Chloride Level 109 H 98-107 mmol/L Carbon Dioxide Level 24 20-31 mmol/L Anion Gap 6 5-15 Blood Urea Nitrogen 8 L 9-23 mg/dL Creatinine 0.90 0.700-1.30 mg/dL Glomerular Filtration Rate Calc 106 >90 mL/min BUN/Creatinine Ratio 8.9 L 10.0-20.0 Serum Glucose 83 74-106 mg/dL Calcium Level 9.5 8.7-10.4 mg/dL Magnesium Level 1.8 1.6-2.6 mg/dL Total Bilirubin 1.1 H 0.2-1.0 mg/dL Aspartate Amino Transferase (AST) 24 13-40 U/L Alanine Aminotransferase (ALT) 13 7-40 U/L Alkaline Phosphatase 72 46-116 U/L Ammonia 28 11-32 umol/L Troponin I High Sensitivity 13 14 </=54 ng/L Total Protein 7.2 5.7-8.2 g/dL Albumin 4.1 3.2-4.8 g/dL Thyroid Stimulating Hormone (TSH) 1.19 0.55-4.78 uIU/mL Plasma/Serum Blood Alcohol 4.1 <10 mg/dL Lactic Acid Level 0.8 0.4-2.0 mmol/L Assessment/Plan Assessment/Plan 1. Generalized seizures - Seen at [facility] in 05/2024 for status epilepticus, increased Keppra 1000mg BID to 2000mg BID. Currently, negative CT head for acute process. Utox +THC, BZD. Concern for noncompliance. Added Vimpat 50mg BID on 08/08 but had breakthroughs so added Vimpat 100mg BID - Keppra 2000mg BID - Increase Vimpat 100mg BID - Has outpt appt on 08/24 at [facility] with VIDA Buchanan MD Aug 09, 2024 08:53
[2024-08-09] MEDS: LACOSAMIDE IV SCH (09:00)
[2024-08-09] MEDS: D5W 5% IV SCH (09:00)
[2024-08-09] MEDS: ACETAMINOPHEN 325 MG TAB PO PRN (13:24)
--- NOTE | 2024-08-09 14:40 | DVHPN2 ---
Subjective Patient was more awake alert. Patient had another seizure this morning, lacosamide has been increased to 100 mg twice a day Reviewed: Care Plan Changes from previous H/P or p: No Changes Objective Vitals Vital Signs Date Time Temp Pulse Resp B/P (MAP) Pulse Ox O2 Delivery O2 Flow Rate FiO2 08/09/24 11:07 65 122/84 08/09/24 09:09 97.9 19 98 97.9 08/09/24 08:00 Nasal Cannula* 2 28 Intake/Output Intake and Output 08/09/24 07:00 Intake Total 2635 ml Output Total 2775 ml Balance -140 ml Intake Oral 2580 ml IV Total 55 ml Output Urine Total 2775 ml Exam HEENT pupils are reactive Neck is supple CV is S1-S2 regular rate and rhythm Respiratory viral clear GI posterior bowel sound 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 Current Medications Medications Dose Ordered Sig/Aylin Route Start Time Stop Time Status Last Admin Dose Admin Ondansetron HCl 4 mg Q6HPRN PRN IV 08/05/24 23:30 Sodium Chloride 1,000 ml @ 100 mls/hr Q10H IV 08/05/24 23:30 08/09/24 08:29 100 MLS/HR Enoxaparin Sodium 40 mg DAILY SC 08/06/24 10:00 08/09/24 10:08 40 MG Pantoprazole Sodium 40 mg DAILY IV 08/06/24 10:00 08/09/24 10:07 40 MG Aspirin 81 mg DAILY PO 08/07/24 10:00 08/09/24 10:07 81 MG Carvedilol 12.5 mg BID PO 08/06/24 22:00 08/09/24 10:07 12.5 MG Furosemide 40 mg DAILY PO 08/07/24 10:00 08/09/24 10:08 40 MG Sucralfate 1 gm TID PO 08/06/24 14:00 08/09/24 13:24 1 GM Lorazepam 1 mg Q5MINP PRN IV 08/06/24 11:15 08/09/24 13:22 1 MG Alprazolam 1 mg DAILY PRN PO 08/07/24 10:00 08/08/24 20:52 1 MG Gabapentin 300 mg TID PO 08/06/24 14:00 08/09/24 13:24 300 MG Oxycodone HCl 10 mg QID PRN PO 08/06/24 11:45 08/07/24 19:10 10 MG Acetaminophen 650 mg Q4HP PRN PO 08/06/24 14:45 08/09/24 13:24 650 MG Levetiracetam 2,000 mg BID PO 08/07/24 22:00 08/09/24 10:06 2,000 MG Lacosamide 100 mg/ Dextrose 60 ml @ 110 mls/hr DAILY@0800,2000 IV 08/09/24 09:00 Laboratory Results Laboratory Tests 08/05/24 21:22 Urinalysis Test 08/05/24 20:48 Urine Color Yellow (Yellow) Urine Clarity Clear (Clear) Urine pH 6.0 (5.0-9.0) Urine Specific [place] 1.029 (1.001-1.035) Urine Protein Trace (Negative) H Urine Ketones Negative (Negative) Urine Blood Negative /uL (Negative) Urine Nitrite Negative (Negative) Urine Bilirubin Negative (Negative) Urine Urobilinogen 2 mg/dL (Negative) H Urine Leukocyte Esterase Negative /uL (Negative) Urine RBC 2 /hpf (0 - 3) Urine Microscopic WBC 2 /HPF (0-3) Urine Squamous Epithelial Cells Few /hpf (<5) Urine Calcium Oxalate Crystals Many (None Seen) Urine Bacteria None seen /hpf (None Seen) Urine Mucus Few (None Seen) Urine Glucose Normal mg/dL (Normal) Assessment/Plan Assessment/Plan 48-year-old male with a known history of hypertension, anxiety disorder, epilepsy initiation with the hospital with altered mental status and breakthrough seizures found to have 1. Acute metabolic encephalopathy secondary to breakthrough seizure 2. Breakthrough seizures 3. Epilepsy 4. Hypertension 5. Anxiety disorder -increase Vimpat 100mg IV twice a day, continue Keppra which is 2 g p.o. twice a day, Ativan p.r.n. seizure, neurology consultation and recommendation appreciated (discussed with Dr. Tena Alatorre on the phone.) -aspiration precaution and seizure precautions. Plan discussed with: Patient Date of Service: Aug 09, 2024 Billing Provider: LARISA BYERS MD Common Visit Codes: NOT BILLABLE LARISA BYERS MD Aug 09, 2024 14:39
[2024-08-10] VITALS (7 sets, daily range): BP systolic 120–143; BP diastolic 79–101; PULSE 54–78; RESP 16–18; TEMP 97.2–98.9; O2SAT 96–100
--- NOTE | 2024-08-10 14:37 | DVHPN2 ---
Neuro Progress Note Todays Date Date of Progress Note: 08/10/24 Date of Admission Date of Admission: Date of Admission: Aug 05, 2024 at 23:31 Overnight Events Overnight Events: Spoke to patient's sister. She states that he was taking Keppra 1000mg TID (she gives his medications, pt's nephew takes care of him in am and pt's sister in pm) Family History Patient History: Cancer G8 FATHER GRANDFATHER FH: congestive heart failure G8 MOTHER, Onset:Unknown FH: diabetes mellitus Family history: Diabetes mellitus G8 FATHER GRANDMOTHER, Onset:Unknown Family history: Hypertension G8 MOTHER, Onset:Unknown Stroke Allergies and Medications Allergies: Coded Allergies: Penicillins (Verified Allergy, Severe, 03/02/23) Ketorolac Tromethamine (Verified Allergy, Unknown, 03/02/23) Morphine (Verified Allergy, Unknown, 03/02/23) Tramadol (Verified Allergy, Unknown, 03/02/23) Home Meds Active Scripts Doxycycline Hyclate (DOXYCYCLINE HYCLATE) 100 Mg Tab, 1 TAB PO BID for 5 Days, #10 TAB Prov:FEROZ ALVARADO MD 08/22/21 Reported Medications Valsartan-Hydrochlorothiazide (Diovan Hct) 160 /12.5 Tab, 1 TAB PO DAILY, #30 TAB 5 Refills 08/07/24 Metoprolol Tartrate (Metoprolol Tartrate) 25 Mg Tab, 25 MG PO for 30 Days, MG 08/07/24 Levetiracetam (Keppra) 500 Mg Tab, 1000 MG PO TID for 30 Days, MG 08/06/24 Gabapentin (Gabapentin) 300 Mg Cap, 300 MG PO TID, MG 08/20/21 Furosemide (Furosemide) 40 Mg Tab, 1 TAB PO DAILY, TAB 08/20/21 Aspirin (Aspir-Low) 81 Mg Tab, 81 MG PO DAILY for 30 Days, MG 11/12/17 Oxycodone Hcl (OXYCODONE HCL) 5 Mg Tb, 10 MG PO QID PRN for MODERATE PAIN 11/12/17 Pantoprazole Sodium Sesquihydr (Protonix) 40 Mg Tab, 40 MG PO BID, #30 TAB 11/12/17 Alprazolam (Xanax) 2 Mg Tab, 2 MG PO BID, TAB 06/14/16 Discontinued Reported Medications Alprazolam (Xanax) 0.25 Mg Tb, 1 MG PO DAILYP PRN for ANXIETY, #30 TAB 05/04/19 Pantoprazole Sodium Sesquihydr (Protonix) 40 Mg Tab, 40 MG PO DAILY, #30 TAB 05/04/19 Oxycodone HCl (Oxycodone HCl ER) 30 Mg Tab, 30 MG PO QIDPRN, TAB 05/04/19 Carvedilol (Carvedilol) 12.5 Mg Tab, 1 TAB PO BID, #180 TAB 1 Refill 11/12/17 Lisinopril (Lisinopril) 20 Mg Tab, 20 MG PO DAILY for 30 Days, MG 11/12/17 Warfarin Sodium (Coumadin) 5 Mg Tab, 1 TAB PO DAILY, #90 TAB 1 Refill 11/12/17 Spironolactone (Spironolactone) 25 Mg Tab, 1 TAB PO DAILY, #90 TAB 1 Refill 11/12/17 Albuterol Sulfate (Albuterol Sulfate) 2 Mg Tab, 2 MG PO Q4HPRN PRN for SHORTNESS OF BREATH, MG 11/12/17 Enoxaparin Sodium (Lovenox) 100 Mg/1 Ml Inj, 120 MG SC DAILY, INJ 11/12/17 Sucralfate (CARAFATE) 1 Gm Tab, 1 GM PO TID, TAB 06/02/16 General Examination Last Vital sign Vital Signs Date Time Temp Pulse Resp B/P (MAP) Pulse Ox O2 Delivery O2 Flow Rate FiO2 08/10/24 09:32 58 140/81 08/10/24 09:00 98.6 18 96 98.6 08/10/24 08:00 Nasal Cannula* 2 28 General Exam: General Examination: General: No apparent distress, appears comfortable. Cooperative HEENT: Normocephalic, atraumatic. Supple neck. No oropharynx lesion or exudate noted. Extremities: No noted edema or cyanosis Skin: No noted rashes or jaundice. Neuro Exam: AAOx1. Limited verbal output. Able to respond minimally. EOMI, PERRL. NO facial asymmetry. 5/5 strength in UE and LE. +2 reflexes throughout. Labs Labs: Laboratory Tests Test 08/05/24 20:48 08/05/24 21:22 08/06/24 00:27 Range/Units Urine Color Yellow Yellow Urine Clarity Clear Clear Urine pH 6.0 5.0-9.0 Urine Specific [place] 1.029 1.001-1.035 Urine Protein Trace H Negative Urine Ketones Negative Negative Urine Blood Negative Negative /uL Urine Nitrite Negative Negative Urine Bilirubin Negative Negative Urine Urobilinogen 2 H Negative mg/dL Urine Leukocyte Esterase Negative Negative /uL Urine RBC 2 0 - 3 /hpf Urine Microscopic WBC 2 0-3 /HPF Urine Squamous Epithelial Cells Few <5 /hpf Urine Calcium Oxalate Crystals Many None Seen Urine Bacteria None seen None Seen /hpf Urine Mucus Few None Seen Urine Glucose Normal Normal mg/dL Urine Opiates Screen Neg NEGATIVE Urine Fentanyl Screen Neg NEGATIVE Urine Barbiturates Screen Neg NEGATIVE Urine Phencyclidine Screen Neg NEGATIVE Urine Amphetamines Screen Neg NEGATIVE Urine Benzodiazepines Screen Pos NEGATIVE Urine Cocaine Screen Neg NEGATIVE Urine Cannabinoids Screen Pos NEGATIVE White Blood Count 4.9 4.4-10.8 10^3/uL Red Blood Count 5.18 4.5-5.90 10^6/uL Hemoglobin 15.9 13.5-17.5 g/dL Hematocrit 48.8 41.0-53.0 % Mean Corpuscular Volume 94.2 80.0-100.0 fL Mean Corpuscular Hemoglobin 30.8 28.0-32.0 pg Mean Corpuscular Hemoglobin Concent 32.7 32.0-36.0 g/dL Red Cell Distribution Width 14.3 11.8-14.3 % Platelet Count 229 140-450 10^3/uL Mean Platelet Volume 8.6 6.9-10.8 fL Neutrophils (%) (Auto) 53.7 37.0-80.0 % Lymphocytes (%) (Auto) 32.6 10.0-50.0 % Monocytes (%) (Auto) 10.8 0.0-12.0 % Eosinophils (%) (Auto) 2.1 0.0-7.0 % Basophils (%) (Auto) 0.8 0.0-2.0 % Neutrophils # (Auto) 2.6 1.6-8.6 10 ^3/uL Lymphocytes # (Auto) 1.6 0.4-5.4 10 ^3/uL Monocytes # (Auto) 0.5 0-1.3 10 ^3/uL Eosinophils # (Auto) 0.1 0-0.8 10 ^3/uL Basophils # (Auto) 0 0-0.2 10 ^3/uL Nucleated Red Blood Cells 0.1 % Sodium Level 139 136-145 mmol/L Potassium Level 3.4 L 3.5-5.1 mmol/L Chloride Level 109 H 98-107 mmol/L Carbon Dioxide Level 24 20-31 mmol/L Anion Gap 6 5-15 Blood Urea Nitrogen 8 L 9-23 mg/dL Creatinine 0.90 0.700-1.30 mg/dL Glomerular Filtration Rate Calc 106 >90 mL/min BUN/Creatinine Ratio 8.9 L 10.0-20.0 Serum Glucose 83 74-106 mg/dL Calcium Level 9.5 8.7-10.4 mg/dL Magnesium Level 1.8 1.6-2.6 mg/dL Total Bilirubin 1.1 H 0.2-1.0 mg/dL Aspartate Amino Transferase (AST) 24 13-40 U/L Alanine Aminotransferase (ALT) 13 7-40 U/L Alkaline Phosphatase 72 46-116 U/L Ammonia 28 11-32 umol/L Troponin I High Sensitivity 13 14 </=54 ng/L Total Protein 7.2 5.7-8.2 g/dL Albumin 4.1 3.2-4.8 g/dL Thyroid Stimulating Hormone (TSH) 1.19 0.55-4.78 uIU/mL Plasma/Serum Blood Alcohol 4.1 <10 mg/dL Lactic Acid Level 0.8 0.4-2.0 mmol/L Assessment/Plan Assessment/Plan 1. Generalized seizures - Seen at [facility] [place] in 05/2024 for status epilepticus, increased Keppra 1000mg BID to 2000mg BID. Sister states Keppra 1000mg TID. Currently, negative CT head for acute process. Utox +THC, BZD. Concern for noncompliance. 08/09 added Vimpat - Increase Keppra 2000mg BID - Vimpat 100mg BID - Has outpt appt on 08/[address] [facility] with Dr. Ang Diggs Plan discussed with: Patient (Sister) VIDA URIOSTEGUI MD Aug 10, 2024 14:37
--- NOTE | 2024-08-10 15:07 | DVHPN2 ---
Subjective Patient is very drowsy, had two seizures yesterday morning and yesterday evening. Currently on Vimpat and Keppra. Reviewed: Care Plan Changes from previous H/P or p: No Changes Objective Vitals Vital Signs Date Time Temp Pulse Resp B/P (MAP) Pulse Ox O2 Delivery O2 Flow Rate FiO2 08/10/24 09:32 58 140/81 08/10/24 09:00 98.6 18 96 98.6 08/10/24 08:00 Nasal Cannula* 2 28 Intake/Output Intake and Output 08/10/24 07:00 Intake Total 2720 ml Output Total 1350 ml Balance 1370 ml Intake Oral 1465 ml IV Total 1255 ml Output Urine Total 1350 ml # Voids 2 Exam HEENT pupils are reactive Neck is supple CV is S1-S2 regular rate and rhythm Respiratory viral clear GI posterior bowel sound Extremity no edema [employer] no motor deficit Medications Current Medications Medications Dose Ordered Sig/Aylin Route Start Time Stop Time Status Last Admin Dose Admin Ondansetron HCl 4 mg Q6HPRN PRN IV 08/05/24 23:30 Sodium Chloride 1,000 ml @ 100 mls/hr Q10H IV 08/05/24 23:30 08/10/24 13:43 100 MLS/HR Enoxaparin Sodium 40 mg DAILY SC 08/06/24 10:00 08/10/24 09:31 40 MG Pantoprazole Sodium 40 mg DAILY IV 08/06/24 10:00 08/10/24 09:30 40 MG Aspirin 81 mg DAILY PO 08/07/24 10:00 08/10/24 09:31 81 MG Carvedilol 12.5 mg BID PO 08/06/24 22:00 08/09/24 23:16 12.5 MG Furosemide 40 mg DAILY PO 08/07/24 10:00 08/10/24 09:31 40 MG Sucralfate 1 gm TID PO 08/06/24 14:00 08/10/24 13:43 1 GM Lorazepam 1 mg Q5MINP PRN IV 08/06/24 11:15 08/09/24 17:16 1 MG Gabapentin 300 mg TID PO 08/06/24 14:00 08/10/24 13:43 300 MG Oxycodone HCl 10 mg QID PRN PO 08/06/24 11:45 08/10/24 13:43 10 MG Acetaminophen 650 mg Q4HP PRN PO 08/06/24 14:45 08/09/24 13:24 650 MG Levetiracetam 2,000 mg BID PO 08/07/24 22:00 08/10/24 09:31 2,000 MG Lacosamide 100 mg/ Dextrose 60 ml @ 110 mls/hr DAILY@0800,2000 IV 08/09/24 09:00 08/10/24 08:45 110 MLS/HR Lorazepam 0.5 mg Q6HP PRN IV 08/09/24 20:30 Laboratory Results Laboratory Tests 08/05/24 21:22 Urinalysis Test 08/05/24 20:48 Urine Color Yellow (Yellow) Urine Clarity Clear (Clear) Urine pH 6.0 (5.0-9.0) Urine Specific [place] 1.029 (1.001-1.035) Urine Protein Trace (Negative) H Urine Ketones Negative (Negative) Urine Blood Negative /uL (Negative) Urine Nitrite Negative (Negative) Urine Bilirubin Negative (Negative) Urine Urobilinogen 2 mg/dL (Negative) H Urine Leukocyte Esterase Negative /uL (Negative) Urine RBC 2 /hpf (0 - 3) Urine Microscopic WBC 2 /HPF (0-3) Urine Squamous Epithelial Cells Few /hpf (<5) Urine Calcium Oxalate Crystals Many (None Seen) Urine Bacteria None seen /hpf (None Seen) Urine Mucus Few (None Seen) Urine Glucose Normal mg/dL (Normal) Assessment/Plan Assessment/Plan 48-year-old male with a known history of hypertension, anxiety disorder, epilepsy initiation with the hospital with altered mental status and breakthrough seizures found to have 1. Acute metabolic encephalopathy secondary to breakthrough seizure 2. Breakthrough seizures 3. Epilepsy 4. Hypertension 5. Anxiety disorder -continue Vimpat 100mg IV twice a day, continue Keppra 2 g p.o. twice a day, Ativan p.r.n. seizure, neurology consultation and recommendation appreciated , discussed with Dr. Tena Alatorre in person. -aspiration precaution and seizure precautions. Plan discussed with: Patient, Other Date of Service: Aug 10, 2024 Billing Provider: LARISA BYERS MD Common Visit Codes: NOT BILLABLE LARISA BYERS MD Aug 10, 2024 15:07
[2024-08-11 01:00] VITALS: BP 139/97; PULSE 65; RESP 17; TEMP 97.7; O2SAT 100
[2024-08-11] MEDS: LORazepam 2MG/ML-1ML VIAL IV PRN (01:53)
[2024-08-11 05:00] VITALS: BP 111/77; PULSE 59; RESP 17; TEMP 98; O2SAT 100
[2024-08-11 07:30] VITALS: PULSE 52
[2024-08-11 09:03] VITALS: BP 126/76; PULSE 60; RESP 18; TEMP 97.9; O2SAT 99
[2024-08-11 13:00] VITALS: BP 126/86; PULSE 72; RESP 18; TEMP 98.1; O2SAT 96
[2024-08-11] MEDS ORDERED: LEVE100020 PO ×2 (14:07→14:08)
[2024-08-11] MEDS ORDERED: LACO100T PO (14:07)
--- NOTE | 2024-08-11 14:10 | DVHDS2 ---
Discharge Summary Date of Admission Aug 05, 2024 at 23:31 Date of Discharge: Aug 11, 2024 Labs/Diagnostic Data: Laboratory Results Test 08/06/24 00:27 08/05/24 21:22 08/05/24 20:48 Lactic Acid Level 0.8 mmol/L (0.4-2.0) Troponin I High Sensitivity 14 ng/L (</=54) White Blood Count 4.9 10^3/uL (4.4-10.8) Red Blood Count 5.18 10^6/uL (4.5-5.90) Hemoglobin 15.9 g/dL (13.5-17.5) Hematocrit 48.8 % (41.0-53.0) Mean Corpuscular Volume 94.2 fL (80.0-100.0) Mean Corpuscular Hemoglobin 30.8 pg (28.0-32.0) Mean Corpuscular Hemoglobin Concent 32.7 g/dL (32.0-36.0) Red Cell Distribution Width 14.3 % (11.8-14.3) Platelet Count 229 10^3/uL (140-450) Mean Platelet Volume 8.6 fL (6.9-10.8) Neutrophils (%) (Auto) 53.7 % (37.0-80.0) Lymphocytes (%) (Auto) 32.6 % (10.0-50.0) Monocytes (%) (Auto) 10.8 % (0.0-12.0) Eosinophils (%) (Auto) 2.1 % (0.0-7.0) Basophils (%) (Auto) 0.8 % (0.0-2.0) Neutrophils # (Auto) 2.6 10 ^3/uL (1.6-8.6) Lymphocytes # (Auto) 1.6 10 ^3/uL (0.4-5.4) Monocytes # (Auto) 0.5 10 ^3/uL (0-1.3) Eosinophils # (Auto) 0.1 10 ^3/uL (0-0.8) Basophils # (Auto) 0 10 ^3/uL (0-0.2) Nucleated Red Blood Cells 0.1 % Sodium Level 139 mmol/L (136-145) Potassium Level 3.4 mmol/L (3.5-5.1) Chloride Level 109 mmol/L (98-107) Carbon Dioxide Level 24 mmol/L (20-31) Anion Gap 6 (5-15) Blood Urea Nitrogen 8 mg/dL (9-23) Creatinine 0.90 mg/dL (0.700-1.30) Glomerular Filtration Rate Calc 106 mL/min (>90) BUN/Creatinine Ratio 8.9 (10.0-20.0) Serum Glucose 83 mg/dL (74-106) Calcium Level 9.5 mg/dL (8.7-10.4) Magnesium Level 1.8 mg/dL (1.6-2.6) Total Bilirubin 1.1 mg/dL (0.2-1.0) Aspartate Amino Transferase (AST) 24 U/L (13-40) Alanine Aminotransferase (ALT) 13 U/L (7-40) Alkaline Phosphatase 72 U/L (46-116) Ammonia 28 umol/L (11-32) Total Protein 7.2 g/dL (5.7-8.2) Albumin 4.1 g/dL (3.2-4.8) Thyroid Stimulating Hormone (TSH) 1.19 uIU/mL (0.55-4.78) Plasma/Serum Blood Alcohol 4.1 mg/dL (<10) Urine Color Yellow (Yellow) Urine Clarity Clear (Clear) Urine pH 6.0 (5.0-9.0) Urine Specific [place] 1.029 (1.001-1.035) Urine Protein Trace (Negative) Urine Ketones Negative (Negative) Urine Blood Negative /uL (Negative) Urine Nitrite Negative (Negative) Urine Bilirubin Negative (Negative) Urine Urobilinogen 2 mg/dL (Negative) Urine Leukocyte Esterase Negative /uL (Negative) Urine RBC 2 /hpf (0 - 3) Urine Microscopic WBC 2 /HPF (0-3) Urine Squamous Epithelial Cells Few /hpf (<5) Urine Calcium Oxalate Crystals Many (None Seen) Urine Bacteria None seen /hpf (None Seen) Urine Mucus Few (None Seen) Urine Glucose Normal mg/dL (Normal) Urine Opiates Screen Neg (NEGATIVE) Urine Fentanyl Screen Neg (NEGATIVE) Urine Barbiturates Screen Neg (NEGATIVE) Urine Phencyclidine Screen Neg (NEGATIVE) Urine Amphetamines Screen Neg (NEGATIVE) Urine Benzodiazepines Screen Pos (NEGATIVE) Urine Cocaine Screen Neg (NEGATIVE) Urine Cannabinoids Screen Pos (NEGATIVE) Other Laboratory Tests 08/05/24 21:22 Brief Hx & Hospital Course: Mr. Blade Pena is a 48-year-old male with a history of Hypertension, COPD, CVA, Seizures who presents for altered level of consciousness. Possibly had a seizure episode earlier yesterday as patient was found to be altered and confused by family members. Patient was still confused but also agitated and aggressive upon arrival to the hospital. Limited HPI due to patient altered mental status, patient is alert and oriented to self and place only. Patient reports he does not remember what happened or why he is in the hospital. Patient endorses he has not been taking any of his home prescribed medications. Patient admitted for further evaluation. He is admitted and evaluated by his neurologist. His seizure medications have been adjusted. Patient remained seizure-free for 48 hours prior to discharge. Otherwise his clinically stable. Mentation is normal. He is ambulating with a walker. He is advised to use the walker to prevent any falls at home. I have talked with the patient as well as his sister over the phone regarding compliance with his seizure medications and follow up with the neurologist. I have talked to him and her regarding increased dose of his Keppra as well as Vimpat. They have verbalized understanding of this and agree to take the medications as prescribed and have follow up as mentioned. Given patient is clinically stable without any seizures being discharged home in stable condition. Patient verbalized understanding his hospital diagnosis, treatment he received, discharge medications, discharge instructions and follow-up plan of care. Consults/Reason for consult Assessment/Plan 1. Generalized seizures - Seen at [facility] [place] in 05/2024 for status epilepticus, increased Keppra 1000mg BID to 2000mg BID. Sister states Keppra 1000mg TID. Currently, negative CT head for acute process. Utox +THC, BZD. Concern for noncompliance. 08/09 added Vimpat - Increase Keppra 2000mg BID - Vimpat 100mg BID - Has outpt appt on 08/24 at [facility] with Dr. Ang Diggs Plan discussed with: Patient (Sister) VIDA URIOSTEGUI MD Aug 10, 2024 14:37 Operations or Procedures EXAM: CT HEAD WITHOUT CONTRAST HISTORY: altered COMPARISON: CT HEAD WITHOUT CONTRAST on DOS: 03/02/23, HEAD WITHOUT CONTRAST on DOS: 08/19/21, HEAD WITHOUT CONTRAST on DOS: 08/18/21 TECHNIQUE: Axial images were obtained and reformatted in coronal and sagittal planes. All CT scans at this medical facility are performed using dose modulation techniques as appropriate to a performed exam including the following: Automated exposure control was utilized; adjustment of the MA and/or KV according to patient size; and use of iterative reconstruction technique. CT Dose: CTDI volume is 62.28 mGy. Dose-length product is 998.15 mGy*cm FINDINGS: Supratentorial Region: No evidence for large acute territorial ischemia. Stable moderate multifocal bilateral encephalomalacia reflecting remote ischemic insults. No intracranial hemorrhage is noted. Posterior Fossa: No acute abnormality. Small bilateral superior cerebellar lobe encephalomalacia areas. Brainstem: Unremarkable. Sellar/Suprasellar Region: Unremarkable. Ventricles, Cisterns, Sulci: Age-appropriate. Orbits: Unremarkable. Paranasal Sinuses: Unremarkable. Mastoid Air Cells: Unremarkable. Vasculature: Unremarkable. Bones/Soft Tissues: No acute abnormality. Other: None. IMPRESSION: 1. No acute intracranial process. ATED BY: ADRI TALBERT MD DICTATED DATE/TIME: 08/05/24 1821 Condition at Discharge: Stable Final Diagnosis/Problems List Breakthrough seizure, seizure disorder Discharge Disposition: Home Discharge Instruct/Medications Diet: Consistent carbohydrate, Cardiac 2g Na,low cholest Activity: No Restrictions, As Tolerated Activity comment: Use walker with ambulation. No driving. Follow Up/Referral: - Has outpt appt on 08/24 at [facility] with Dr. Ang Diggs Medications: - Increase Keppra 2000mg twice a day - Vimpat 100mg twice a day Continue other home medications as you were taking. New Medications: Levetiracetam (Levetiracetam) 1,000 Mg Tab 2 TAB PO BID, #120 TAB Take 2000 mg (two tablets) twice a day as recommended by Neurology. Continued Medications: Alprazolam (Xanax) 2 Mg Tab 2 MG PO BID, TAB Furosemide (Furosemide) 40 Mg Tab 1 TAB PO DAILY, TAB Gabapentin (Gabapentin) 300 Mg Cap 300 MG PO TID, MG Lacosamide (Vimpat) 100 Mg Tab 100 MG PO BID, #120 TAB Metoprolol Tartrate (Metoprolol Tartrate) 25 Mg Tab 25 MG PO for 30 Days, MG Oxycodone Hcl (Oxycodone Hcl) 5 Mg Tb 10 MG PO QID PRN for MODERATE PAIN Pantoprazole Sodium Sesquihydr (Protonix) 40 Mg Tab 40 MG PO BID, #30 TAB Valsartan-Hydrochlorothiazide (Diovan Hct) 160 /12.5 Tab 1 TAB PO DAILY, #30 TAB 5 Refills Discontinued Medications: Aspirin (Aspir-Low) 81 Mg Tab 81 MG PO DAILY for 30 Days, MG Doxycycline Hyclate (Doxycycline Hyclate) 100 Mg Tab 1 TAB PO BID for 5 Days, #10 TAB Levetiracetam (Keppra) 500 Mg Tab 1000 MG PO TID for 30 Days, MG Discharge Statement: "Patient was advised to return to the ER or call 911 if any headaches, dizziness, shortness of breath, chest pain, abdominal pain, bleeding, fevers, or worsening of medical condition. Patient was counseled about treatment plan, medications, possible side effects, patientverbalized understanding. All questions were answered to the best of my ability. This discharge took greater then 30 minutes in planning, reviewing documentation, counseling the patient, and discussing with other team members." ASSESSMENT ASSESSMENT Assessment Breakthrough seizure, seizure disorder KAMINI ADAN MD Aug 11, 2024 14:10
[2024-08-11 15:32] VITALS: BP 126/86; PULSE 84; TEMP 36.7
== END 2024-08-11 16:35 | disposition home or self-care (01) | DRG 101 ==
LOC: EDBD 04:56 → ER 04:56 → TELE 23:31 → TELE-WESTW 23:32 → TELE-EAST 08-06 03:10 → TELE-WESTW 08-06 18:00
PROVIDERS: ADMIT Nurse Practitioner Family; ATTEND Nurse Practitioner Family
DX: G40.901 Epilepsy, unspecified, not intractable, with status epilepticus (principal); F41.9 Anxiety disorder, unspecified; J44.9 Chronic obstructive pulmonary disease, unspecified; F17.210 Nicotine dependence, cigarettes, uncomplicated; K21.9 Gastro-esophageal reflux disease without esophagitis; I50.9 Heart failure, unspecified; I11.0 Hypertensive heart disease with heart failure; Z79.899 Other long term (current) drug therapy; Z86.73 Personal history of transient ischemic attack (TIA), and cerebral infarction without residual deficits; Z90.49 Acquired absence of other specified parts of digestive tract; Z83.3 Family history of diabetes mellitus; Z82.49 Family history of ischemic heart disease and other diseases of the circulatory system; Z82.3 Family history of stroke; Z87.442 Personal history of urinary calculi
CPT/HCPCS: 36415; 70450; 80053; 80307; 80320; 81001; 82140; 83605; 83735; 84443; 84484; 85025; 99291; C9254; G0378; J2470; J3480; J7060